=== PATIENT | male | born 1940 | race Caucasian/White ===

== ENCOUNTER 2018-03-18 08:44 | Day surgery (SDC) | payer OTHER ==
--- OUTSIDE RECORDS SUMMARY | 2018-03-18 08:47 | XMS REPORT | Clinical Summary ---
:1940 Author Organization [facility] Address [address] [place] [address] Phone Care Team Providers Name Role Phone Unavailable Primary Care Provider Unavailable Allergies No Known Allergies Current Medications Prescription Sig. Disp. Refills Start Date End Date Status clopidogrel (PLAVIX) Take 75 mg by Active 75 mg tablet mouth daily. pravastatin Take 10 mg by Active (PRAVACHOL) 10 MG mouth daily. tablet PNV w/o calcium-iron Take by mouth. Active fum-FA (M-VIT) 27-1 mg Tab folic acid (FOLVITE) Take 1 mg by Active 1 MG tablet mouth daily. magnesium oxide Take 400 mg by Active (MAG-OX) 400 mg mouth 2 (two) tablet times daily. potassium chloride Take 20 mEq by Active (KLOR-CON) 10 MEQ CR mouth 2 (two) tablet times daily. cyanocobalamin Take 250 mcg Active (VITAMIN B-12) 250 by mouth MCG tablet daily. metoprolol Take 50 mg by Active (LOPRESSOR) 50 MG mouth 2 (two) tablet times daily. memantine (NAMENDA) Take 1 tablet 60 tablet 2 06/23/2017 Active 10 MG tablet (10 mg total) 8 by mouth 2 (two) times daily. dofetilide (TIKOSYN) Take 125 mcg Discontinued 125 MCG capsule by mouth 2 7 (two) times daily. docusate sodium Take 100 mg by Discontinued (COLACE) 100 MG mouth 2 (two) 7 capsule times daily. cefadroxil (DURICEF) Take 1 capsule 6 capsule 0 06/16/2017 Discontinued 500 MG capsule (500 mg total) 7 by mouth 2 (two) times daily for 3 days. benzonatate Take 1 capsule 20 capsule 0 06/23/2017 (TESSALON) 200 MG (200 mg total) 7 capsule by mouth 3 (three) times daily as needed for Cough for up to 7 days. loperamide (IMODIUM) Take 1 capsule 30 capsule 0 06/23/2017 Discontinued 2 mg capsule (2 mg total) 7 by mouth 4 (four) times daily as needed for Diarrhea for up to 10 days. furosemide (LASIX) Take 1 tablet 30 tablet 2 06/23/2017 20 MG tablet (20 mg total) 7 by mouth daily for 30 days. Active Problems Problem Noted Date Hematuria 06/23/2017 BPH (benign prostatic hyperplasia) 06/16/2017 Encounters Date Type Specialty Care Team Description 06/25/2017 Procedure Pass 06/16/2017 - Hospital Encounter General Internal Jacky Linares Benign prostatic 06/23/2017 Medicine IMD Jv hyperplasia with lower urinary tract symptoms, unspecified morphology (Primary Dx);Confusion;Hyponat remia;ULISES (acute kidney injury) (HCC);S/P TURP;Mixed hyperlipidemia;Essent ial hypertension;Chronic atrial fibrillation (HCC);S/P cardiac pacemaker procedure;Hypervolemi a, unspecified hypervolemia type;Hematuria;Ariel ia without behavioral disturbance, unspecified dementia type;Acute metabolic encephalopathy 06/16/2017 Procedure Pass 06/16/2017 Surgery Jacky Linares CYSTOSCOPY,TURP MD Mayra 06/15/2017 Anesthesia Event Tristan Garner MD 06/12/2017 Hospital Encounter Cardiology Jacky Linares MD 06/12/2017 Hospital Encounter Pre-Admission Jacky Linares MD 06/12/2017 Hospital Encounter Pre-Admission Ernie Means MD 06/12/2017 Orders Only General Internal Medicine after 03/17/2017 Social History Tobacco Use Types Packs/Day Years Used Date Former Smoker Comments: quit 1964 Alcohol Use Drinks/Week oz/Week Comments Yes 2 Shots of liquor 1.2 Sex Assigned at Date Recorded Not on file Last Filed Vital Signs Vital Sign Reading Time Taken Blood Pressure 103/69 06/23/2017 12:00 PM CDT Pulse 52 06/23/2017 12:00 PM CDT Temperature 36.2 C (97.1 F) 06/23/2017 12:00 PM CDT Respiratory Rate 18 06/23/2017 12:00 PM CDT Oxygen Saturation 98% 06/23/2017 12:00 PM CDT Inhaled Oxygen Concentration - - Weight 97.6 kg (215 lb 2.7 oz) 06/23/2017 4:57 AM CDT Height 185.4 cm (6' 1") 06/16/2017 7:07 AM CDT Body Mass Index 28.39 06/23/2017 4:57 AM CDT Plan of Treatment Not on file Procedures Procedure Name Priority Date/Time Associated Diagnosis Comments CYSTOSCOPY,RETROGRADES 06/16/2017 10:35 AM BPH with urinary CDT obstruction Special Needs (TECH) CYSTOSCOPY,TURP 06/16/2017 10:35 AM CDT BPH with urinary obstruction Special Needs (TECH) after 03/17/2017 Results RHYTHM STRIP - SCAN (06/24/2017 1:51 PM)Calcium, Ionized (06/23/2017 4:49 AM) Only the most recent of4 resultswithin the time period is included. Component Value Ref Range Calcium, Ion 1.00 (L) 1.12 - 1.27 mmol/L pH, Blood 7.38 Specimen Performing Laboratory Blood [facility] [address] [address] CBC with platelet count + automated diff (06/23/2017 4:49 AM)Only the most recent of5 resultswithin the time period is included. Component Value Ref Range WBC 13.4 (H) 3.5 - 10.5 K/L RBC 4.60 (L) 4.63 - 6.08 M/L Hemoglobin 13.5 (L) 13.7 - 17.5 GM/DL Hematocrit 41.5 40.1 - 51.0 % MCV 90.2 79.0 - 92.2 fL MCH 29.3 25.7 - 32.2 pg MCHC 32.5 32.3 - 36.5 GM/DL RDW 14.6 (H) 11.6 - 14.4 % Platelets 185 150 - 450 K/CU MM MPV 10.4 9.4 - 12.4 fL nRBC 0 0 - 0 /100 WBC % Neutros 67 % % Lymphs 20 % % Monos 11 % % Eos 2 % % Baso 1 % # Neutros 8.95 (H) 1.78 - 5.38 K/L # Lymphs 2.63 1.32 - 3.57 K/L # Monos 1.50 (H) 0.30 - 0.82 K/L # Eos 0.20 0.04 - 0.54 K/L # Baso 0.08 0.01 - 0.08 K/L Immature Granulocytes-Relative 1 0 - 1 % Specimen Performing Laboratory Blood [address] [address] CBC with platelet count + automated diff (06/23/2017 4:49 AM)Only the most recent of5 resultswithin the time period is included. Specimen Performing Laboratory Blood Narrative The following orders were created for panel order CBC with platelet count + automated diff. Procedure Abnormality Status --------- ------ CBC with platelet count ...[[id number]]AbnormalFinal result Please view results for these tests on the individual orders. Phosphorus (06/23/2017 4:49 AM)Only the most recent of8 resultswithin the time period is included. Component Value Ref Range Phosphorus 4.1 2.3 - 4.7 mg/dL Specimen Performing Laboratory Blood [address] [address] B-type Natriuretic Factor (BNP) (06/23/2017 4:49 AM)Only the most recent of3 resultswithin the time period is included. Component Value Ref Range BNP 2170 (H) 0 - 100 pg/mL Specimen Performing Laboratory Blood [address] [address] Magnesium (06/23/2017 4:49 AM)Only the most recent of8 resultswithin the time period is included. Component Value Ref Range Magnesium 1.7 1.6 - 2.6 mg/dL Specimen Performing Laboratory Blood [address] [address] Basic Metabolic Panel (06/23/2017 4:49 AM)Only the most recent of16 resultswithin the time period is included. Component Value Ref Range Sodium 132 (L) 136 - 145 meq/L Potassium 4.3 3.5 - 5.1 meq/L Chloride 102 98 - 107 meq/L CO2 18 (L) 22 - 29 meq/L BUN 38 (H) 7 - 21 mg/dL Creatinine 1.39 (H) 0.57 - 1.25 mg/dL Glucose 101 70 - 105 mg/dL Calcium 8.7 8.4 - 10.2 mg/dL EGFR 50Comment: ESTIMATED GFR IS NOT ACCURATE mL/min/1.73 sq m CREATININE CLEARANCE IN PREDICTING GLOMERULAR FILTRATION RATE. ESTIMATED GFR IS NOT APPLICABLE FOR DIALYSIS PATIENTS. Specimen Performing Laboratory Blood [facility] [address] [address] 2D Echo W/Doppler(CW/PW/Color) (06/22/2017 5:01 PM) Component Value Ref Range Ejection Fraction LV EF BP 30.7 % Specimen Performing Laboratory DIGISONICS Narrative Echocardiography Laboratory [address] [place] [address] Voice:[phone] Transthoracic Echocardiogram Pat.Name:EAMON OROURKE Pat.ID:[id number] .Date: 06/22/2017 Refer.MD:ARTUR LEAL Exam Time: 5:01:00 PMStudy Type:Echo Complete Height:73inWeight:216lb BSA: 2.23 m2 DOBAge:1940,77Y Sex: MALEBP:131/80 HR:71 bpmSonogrphr: Shanta Saleh RDCS Pat. Stat.:Inpatient Room:[facility] Reason for Study:Evaluate Ejection Fraction History / Clinical:Atrial fibrillation/flutter Procedures:2D ECHO W/ DOPPLER (CW/PW/COLOR), 2D, M-mode, Doppler, Color Flow SUMMARY: Global LV systolic function is kzwnhxpw-vz-mmpbdxqj reduced. Wwllpfbo-ix-verfvh concentric LV hypertrophy. The following segment(s) appear akinetic: basal to mid inferoseptal, mid to distal inferior, mid anteroseptal, and apical septal segments. The following segment(s) appear dyskinetic: mid inferolateral. RV chamber size is significantly enlarged. Global RV systolic function is depressed. LA size is moderately enlarged (42-48 ml/m2). Moderate mitral regurgitation. Estimated Peak systolic PA pressure is 40-45 mm Hg. The estimated RA pressure by IVC dynamics >20 mmHg. A trace of aortic regurgitation. A left pleural effusion is noted. No prior exam available for comparison. FINDINGS: Rhythm/BP: Irregular rhythm during the exam. Most beats appear paced. LV: LV septal thickness is severely increased (> 1.6 cm) ; LV posteriorwall thickness is moderately increased (1.5- 1.6 cm).Global LV systolic function is fwxzpwec-bj-nqpzolgq reduced.Left ventricular chamber size (by vol index) is normal(male - LVED vol - 34-74 ml/m2). LVEF by quantitativeassessment is hxcqrxwm-uh-qjbxfwvi reduced (30%).Wddmdelp-ga-iorymt concentric LV hypertrophy. The followingsegment(s) appear akinetic: basal to mid inferoseptal,mid to distal inferior, mid anteroseptal, and apicalseptal segments. The following segment(s) appear dyskinetic:mid inferolateral. Degree (grade) of diastolic dysfunctionis indeterminate. The other segments are hypokinetic. LA: LA size is moderately enlarged (42-48 ml/m2). RV: RV chamber size is significantly enlarged. Global RV systolicfunction is depressed. RV pacing wire is visualized.. RA: RA cavity size is enlarged. AV: A trace of aortic regurgitation. Mild AoV cusp thickening. MV: Mild MV leaflet thickening. Moderate mitral regurgitation. 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 TV: Mild tricuspid regurgitation. TV structure appears normal by availableviews. Estimated Peak systolic PA pressure is 40-45mm Hg. PV: PV is not well visualized; function appears normal by Dopplervisualized. AO: Aortic root size (Sinus of Valsalva diameter) is mildly dilated.Proximal ascending aorta size is indeterminate (notwell seen). Pericard: No significant pericardial effusion is visualized. Systemic Veins: The inferior vena cava size is dilated. The estimated RApressure by IVC dynamics >20 mmHg. PA/PV/Pleural: A left pleural effusion is noted. Comparison: No prior exam available for comparison. Quality:Technically adequate exam. MEASUREMENTS: 2D Left Ventricle LV A% 21.1 %(36-64)* LA Sng Plane LA Vol99.7 mlIndex 44.7 ml/m2 LA Area 29.2 cm2(8.8-23.4)* Aorta Ao Rtd3.61 cm Parasternal Long [place] Ao An 2.29 cm (1.4-2.6) LV%fs 25.7 %(25-46) Ao Rtd3.36 cmLVPWd 1.54 cm IVSd1.74 cm LA Ds 4.68 cm (2.3-3.9)* LVIDd4.7 cm (4.3-5.1) LV Wmn 1.64 cm LVIDs 3.49 cm (2-4) LV EF Biplane LVEDV BP 130 mlIndex 58.1 ml/m2 HR77 bpm LVESV BP89.9 mlLV CO BP 3.06 l/min LV SV BP39.8 mlLV CI BP 1.37 l/min/m2 DOPPLER Stroke Vol & Cardiac Out HR70 bpmSV 31.9 ml ann2.29 cm CO 2.23 l/min VTI7.74 cm CI1 l/min/m2 TV Pressure Gradient TV pkE 242 cm/s RA Velocity TI mariah 231 cm/Thalia Press 21.4 mmHg Signed 06/23/2017 10:13 AM Wen Arnett M.D. Procedure Note Interface, External Ris In - 06/23/2017 10:13 AM CDT Echocardiography Laboratory [address] [place] [address] Voice: [phone] Transthoracic Echocardiogram Pat.Name: EAMON OROURKE Pat.ID: [id number] St.Date: 06/22/2017 Refer.MD: ARTUR LEAL Exam Time: 5:01:00 PM Study Type:Echo Complete Height: 73in Weight: 216lb BSA: 2.23 m2 Age: 6 1940,77Y Sex: MALE BP: 131/80 HR: 71 bpm Sonogrphr: Shanta Saleh RDCS Pat. Stat.:Inpatient Room: [facility] Reason for Study:Evaluate Ejection Fraction History / Clinical:Atrial fibrillation/flutter Procedures:2D ECHO W/ DOPPLER (CW/PW/COLOR), 2D, M-mode, Doppler, Color Flow SUMMARY: Global LV systolic function is bnhryycw-mp-kqlidrwu reduced. Ytecgmfn-hy-hosuup concentric LV hypertrophy. The following segment(s) appear akinetic: basal to mid inferoseptal, mid to distal inferior, mid anteroseptal, and apical septal segments. The following segment(s) appear dyskinetic: mid inferolateral. RV chamber size is significantly enlarged. Global RV systolic function is depressed. LA size is moderately enlarged (42-48 ml/m2). Moderate mitral regurgitation. Estimated Peak systolic PA pressure is 40-45 mm Hg. The estimated RA pressure by IVC dynamics >20 mmHg. A trace of aortic regurgitation. A left pleural effusion is noted. No prior exam available for comparison. FINDINGS: Rhythm/BP: Irregular rhythm during the exam. Most beats appear paced. LV: LV septal thickness is severely increased (> 1.6 cm) ; LV posterior wall thickness is moderately increased (1.5-1.6 cm). Global LV systolic function is gzpbelwj-mo-fipbyqbd reduced. Left ventricular chamber size (by vol index) is normal (male - LVED vol - 34-74 ml/m2). LVEF by quantitative assessment is wgvhjufd-tn-bgwveaqo reduced (30%). Zzsbosce-mg-ilnasm concentric LV hypertrophy. The following segment(s) appear akinetic: basal to mid inferoseptal, mid to distal inferior, mid anteroseptal, and apical septal segments. The following segment(s) appear dyskinetic: mid inferolateral. Degree (grade) of diastolic dysfunction is indeterminate. The other segments are hypokinetic. LA: LA size is moderately enlarged (42-48 ml/m2). RV: RV chamber size is significantly enlarged. Global RV systolic function is depressed. RV pacing wire is visualized.. RA: RA cavity size is enlarged. AV: A trace of aortic regurgitation. Mild AoV cusp thickening. MV: Mild MV leaflet thickening. Moderate mitral regurgitation. The mechanism for MR is leaflet tethering. TV: Mild tricuspid regurgitation. TV structure appears normal by available views. Estimated Peak systolic PA pressure is 40-45 mm Hg. PV: PV is not well visualized; function appears normal by Doppler visualized. AO: Aortic root size (Sinus of Valsalva diameter) is mildly dilated. Proximal ascending aorta size is indeterminate (not well seen). Pericard: No significant pericardial effusion is visualized. Systemic Veins: The inferior vena cava size is dilated. The estimated RA pressure by IVC dynamics >20 mmHg. PA/PV/Pleural: A left pleural effusion is noted. Comparison: No prior exam available for comparison. Quality: Technically adequate exam. MEASUREMENTS: 2D Left Ventricle LV A% 21.1 % (36-64)* LA Sng Plane LA Vol 99.7 ml Index 44.7 ml/m2 LA Area 29.2 cm2 (8.8-23.4)* Aorta Ao Rtd 3.61 cm Parasternal Long [place] Ao An 2.29 cm (1.4-2.6) LV%fs 25.7 % (25-46) Ao Rtd 3.36 cm LVPWd 1.54 cm IVSd 1.74 cm LA Ds 4.68 cm (2.3-3.9)* LVIDd 4.7 cm (4.3-5.1) LV Wmn 1.64 cm LVIDs 3.49 cm (2-4) LV EF Biplane LVEDV BP 130 ml Index 58.1 ml/m2 HR 77 bpm LVESV BP 89.9 ml LV CO BP 3.06 l/min LV SV BP 39.8 ml LV CI BP 1.37 l/min/m2 DOPPLER Stroke Vol & Cardiac Out HR 70 bpm SV 31.9 ml sabi 2.29 cm CO 2.23 l/min VTI 7.74 cm CI 1 l/min/m2 TV Pressure Gradient TV pkE 242 cm/s RA Velocity TI mariah 231 cm/s RA Press 21.4 mmHg Signed 06/23/2017 10:13 AM Wen Arnett M.D. POC-Glucose meter (06/22/2017 2:23 AM)Only the most recent of2 resultswithin the time period is included. Component Value Ref Range POC-Glucose Meter 108Comment: TESTED AT [address] 70 - 110 mg/dL [address] Specimen Performing Laboratory Blood [facility] [address] [address] Comprehensive metabolic panel (06/22/2017 2:16 AM)Only the most recent of2 resultswithin the time period is included. Component Value Ref Range Protein, Total 6.0 6.0 - 8.3 gm/dL Albumin 3.5 3.5 - 5.0 g/dL Alkaline Phosphatase 67 40 - 150 U/L Total Bilirubin 1.0 0.2 - 1.2 mg/dL Sodium 130 (L) 136 - 145 meq/L Potassium 4.4 3.5 - 5.1 meq/L Chloride 101 98 - 107 meq/L CO2 17 (L) 22 - 29 meq/L BUN 37 (H) 7 - 21 mg/dL Creatinine 1.30 (H) 0.57 - 1.25 mg/dL Glucose 102 70 - 105 mg/dL Calcium 8.5 8.4 - 10.2 mg/dL AST 218 (H) 5 - 34 U/L ALT 373 (H) 6 - 55 U/L EGFR 54Comment: ESTIMATED GFR IS NOT ACCURATE mL/min/1.73 sq m CREATININE CLEARANCE IN PREDICTING GLOMERULAR FILTRATION RATE. ESTIMATED GFR IS NOT APPLICABLE FOR DIALYSIS PATIENTS. Specimen Performing Laboratory Blood [facility] [address] [address] XR chest 2 views (06/21/2017 7:53 PM) Specimen Performing Laboratory GE RIS Narrative FINAL REPORT Comparison exam: 06/20/2017 Small left pleural effusion, unchanged. Blunting of the right costophrenic angle. Cardiomegaly. Normal mediastinal contours. Left subclavian approach dual chamber pacemaker. Previous sternotomy. Normal skeleton and soft tissues. Signed: Petr Ponce MD Report Verified Date/Time:06/21/2017 20:34:15 Reading Location: [address] Ortho Consult Reading Room Procedure Note Interface, External Ris In - 06/21/2017 8:36 PM CDT FINAL REPORT Comparison exam: 06/20/2017 Small left pleural effusion, unchanged. Blunting of the right costophrenic angle. Cardiomegaly. Normal mediastinal contours. Left subclavian approach dual chamber pacemaker. Previous sternotomy. Normal skeleton and soft tissues. Signed: Petr Ponce MD Report Verified Date/Time: 06/21/2017 20:34:15 Reading Location: [facility] Ortho Consult Reading Room abdomen limited (06/21/2017 4:06 PM) Specimen Performing Laboratory GE RIS Narrative FINAL REPORT Comparison: None Discussion: Sonographic evaluation of the right upper quadrant of the abdomen was performed. Liver:Measures 13.9 cm in length at the right midclavicular. It demonstrates normal echogenicity without evidence of focal lesions. Main portal vein diameter 10 mm. Biliary tree:Common duct 6 mm. Gallbladder:No shadowing calculus/calculi. No wall thickening. No pericholecystic fluid.Negative sonographic Campbell's sign. Pancreas: Visualized portions demonstrate no abnormalities. Ascites:No fluid Trace right pleural effusion noted as noted. Kidneys: The right kidney measures 11.0cm.It demonstrates normal cortical echogenicity, without evidence of hydronephrosis, mass, or calculi. IVC/Aorta:Segments partially seen demonstrate no obvious abnormalities. IMPRESSION: Normal right upper quadrant abdomen ultrasound. Signed: Edward Maynard MD Report Verified Date/Time:06/21/2017 16:57:39 Reading Location: [address] Body Reading Room Procedure Note Interface, External Ris In - 06/21/2017 4:59 PM CDT FINAL REPORT Comparison: None Discussion: Sonographic evaluation of the right upper quadrant of the abdomen was performed. Liver: Measures 13.9 cm in length at the right midclavicular. It demonstrates normal echogenicity without evidence of focal lesions. Main portal vein diameter 10 mm. Biliary tree: Common duct 6 mm. Gallbladder: No shadowing calculus/calculi. No wall thickening. No pericholecystic fluid.Negative sonographic Campbell's sign. Pancreas: Visualized portions demonstrate no abnormalities. Ascites: No fluid Trace right pleural effusion noted as noted. Kidneys: The right kidney measures 11.0cm. It demonstrates normal cortical echogenicity, without evidence of hydronephrosis, mass, or calculi. IVC/Aorta: Segments partially seen demonstrate no obvious abnormalities. IMPRESSION: Normal right upper quadrant abdomen ultrasound. Signed: Edward Maynard MD Report Verified Date/Time: 06/21/2017 16:57:39 Reading Location: [address] Body Reading Room Hepatitis C antibody (06/21/2017 1:21 PM) Component Value Ref Range Hepatitis C Ab Nonreactive Nonreactive Specimen Performing Laboratory Blood [address] [address] Hepatitis B core antibody, IgM (06/21/2017 1:21 PM) Component Value Ref Range Hep B C IgM Nonreactive Nonreactive Specimen Performing Laboratory Blood [address] [address] Hepatitis B surface antibody (06/21/2017 1:21 PM) Component Value Ref Range Hep B S Ab <8.0 <8.0 mIU/mL Specimen Performing Laboratory Blood [address] [address] Hepatitis B surface antigen (06/21/2017 1:21 PM) Component Value Ref Range hepatitis B Surface Ag Nonreactive Nonreactive Specimen Performing Laboratory Blood [address] [address] Blood gas, venous (06/21/2017 1:21 PM) Component Value Ref Range pH, Bipin 7.40 7.32 - 7.42 pCO2, Bipin 33 (L) 41 - 51 mmHg pO2, Bipin 54 (H) 25 - 40 mmHg O2 Sat, Bipin 90.4 (H) 40.0 - 70.0 % HCO3, Bipin 20 (L) 21 - 29 mmol/L Base Excess, Bipin -4.6 (L) -2.0 - 3.0 mmol/L Patient Temperature 35.6 C FIO2 21.0 % Specimen Performing Laboratory Blood [address] [address] [address] brain without IV contrast (06/20/2017 5:33 PM) Specimen Performing Laboratory [employer] RIS Narrative FINAL REPORT CLINICAL HISTORY: Confusion COMPARISON: None Multiple axial images of the brain were performed without IV contrast. This exam was performed according to our departmental dose-optimization program, which includes automated exposure control, adjustment of the mA and/or kV according to patient size and/or use of the iterative reconstruction technique. Intracranial hemorrhage: None. Brain parenchyma: Diffuse parenchymal volume loss. Scattered subcortical and periventricular non-specific white matter hypodensities suggestive of microangiopathy. Ventricles, sulci and basal cisterns: Normal for age. Extra-axial spaces: Normal. Midline shift: None. Visualized vasculature: Atherosclerotic calcifications. Cranium: No significant findings. Skullbase: No significant findings. Paranasal sinuses: No significant findings. IMPRESSION: No definite acute intracranial abnormality. There is no mass lesion, intracranial hemorrhage or CT evidence of acute stroke. Microvascular and involutional changes. Please note that CT is insensitive in the detection of acute ischemia. Signed: Zane Bhardwaj MD Report Verified Date/Time:06/20/2017 18:10:41 Reading Location: [address] Reading Room Procedure Note Interface, External Ris In - 06/20/2017 6:12 PM CDT FINAL REPORT CLINICAL HISTORY: Confusion COMPARISON: None Multiple axial images of the brain were performed without IV contrast. This exam was performed according to our departmental dose-optimization program, which includes automated exposure control, adjustment of the mA and/or kV according to patient size and/or use of the iterative reconstruction technique. Intracranial hemorrhage: None. Brain parenchyma: Diffuse parenchymal volume loss. Scattered subcortical and periventricular non-specific white matter hypodensities suggestive of microangiopathy. Ventricles, sulci and basal cisterns: Normal for age. Extra-axial spaces: Normal. Midline shift: None. Visualized vasculature: Atherosclerotic calcifications. Cranium: No significant findings. Skullbase: No significant findings. Paranasal sinuses: No significant findings. IMPRESSION: No definite acute intracranial abnormality. There is no mass lesion, intracranial hemorrhage or CT evidence of acute stroke. Microvascular and involutional changes. Please note that CT is insensitive in the detection of acute ischemia. Signed: Zane Bhardwaj MD Report Verified Date/Time: 06/20/2017 18:10:41 Reading Location: [address] Reading Room Ammonia (06/20/2017 2:33 PM) Component Value Ref Range Ammonia 44 18 - 72 mol/L Specimen Performing Laboratory Blood [address] [address] Hepatic function panel (06/20/2017 2:33 PM) Component Value Ref Range Protein, Total 5.8 (L) 6.0 - 8.3 gm/dL Albumin 3.4 (L) 3.5 - 5.0 g/dL Total Bilirubin 0.7 0.2 - 1.2 mg/dL Bilirubin, Direct 0.4 0.1 - 0.5 mg/dL Alkaline Phosphatase 71 40 - 150 U/L AST 253 (H) 5 - 34 U/L ALT 382 (H) 6 - 55 U/L Specimen Performing Laboratory Blood [address] [address] XR chest 1 view portable / bedside (06/20/2017 9:12 AM)Only the most recent of2 resultswithin the time period is included. Specimen Performing Laboratory GE RIS Narrative FINAL REPORT HISTORY : pulm edema. Comparison: 06/18/2017 Comment: Single portable view of the chest was obtained. The cardiac silhouette size is enlarged. There are findings of pulmonary venous congestion. A left-sided multilead ICD is in place. The patient does have a small left-sided pleural effusion with some adjacent consolidation that could represent atelectasis. Pneumonitis or aspiration cannot be excluded. There is also some patchy right basilar airspace disease. No pneumothorax is seen. Signed: Jaciel Hedrick MD Report Verified Date/Time:06/20/2017 09:18:33 Reading Location: [address] Transitional Reading Room Procedure Note Interface, External Ris In - 06/20/2017 9:45 AM CDT FINAL REPORT HISTORY : pulm edema. Comparison: 06/18/2017 Comment: Single portable view of the chest was obtained. The cardiac silhouette size is enlarged. There are findings of pulmonary venous congestion. A left-sided multilead ICD is in place. The patient does have a small left-sided pleural effusion with some adjacent consolidation that could represent atelectasis. Pneumonitis or aspiration cannot be excluded. There is also some patchy right basilar airspace disease. No pneumothorax is seen. Signed: Jaciel Hedrick MD Report Verified Date/Time: 06/20/2017 09:18:33 Reading Location: [address] Transitional Reading Room Uric acid (06/19/2017 7:34 AM) Component Value Ref Range Uric Acid 8.9 (H) 2.6 - 7.2 mg/dL Specimen Performing Laboratory Blood - Arm, [address] [address] Creatine Kinase (CK) (06/19/2017 7:34 AM) Component Value Ref Range Total CK 739 (H) 29 - 200 U/L Specimen Performing Laboratory Blood - Arm, [address] [address] TSH/Free T4 If Indicated (06/19/2017 4:55 AM) Component Value Ref Range TSH 1.66 0.35 - 4.94 uIU/mL Specimen Performing Laboratory Blood [address] [address] Cortisol (06/18/2017 6:50 PM) Component Value Ref Range Cortisol, Total 17.4 3.7 - 19.4 ug/dL Specimen Performing Laboratory Blood - Arm, [address] [address] Electrolytes (06/18/2017 6:50 PM)Only the most recent of2 resultswithin the time period is included. Component Value Ref Range Sodium 128 (L) 136 - 145 meq/L Potassium 4.9 3.5 - 5.1 meq/L Chloride 100 98 - 107 meq/L CO2 18 (L) 22 - 29 meq/L Specimen Performing Laboratory Blood - Arm, [address] [address] Narrative Call [phone] Sodium, random urine (06/18/2017 10:40 AM)Only the most recent of2 resultswithin the time period is included. Component Value Ref Range Sodium Urine 27 meq/L Specimen Performing Laboratory Urine - Urine, [address] [address] Narrative Reference Range: No Normals Protein, random urine (06/18/2017 10:40 AM) Component Value Ref Range Protein, Urine 231 (H) 0 - 14 mg/dL Specimen Performing Laboratory Urine - Urine, [address] [address] Osmolality, urine (06/18/2017 10:40 AM)Only the most recent of2 resultswithin the time period is included. Component Value Ref Range Osmolality, Ur 677 40 - 1400 mOsm/kg Specimen Performing Laboratory Urine - Urine, [address] [address] Creatinine, random urine (06/18/2017 10:40 AM)Only the most recent of2 resultswithin the time period is included. Component Value Ref Range Creatinine, Ur 139.8 mg/dL Specimen Performing Laboratory Urine - Urine, [address] [address] Narrative Reference Range: No Normals Urinalysis w/Microscopic (06/18/2017 10:40 AM) Component Value Ref Range Color, UA Yellow Clarity, UA Hazy Specific [place], UA 1.018 1.001 - 1.035 pH, UA 5.5 5.0 - 8.0 Protein, UA 200 mg/dL (A) Negative Glucose, UA Negative Negative Ketones, UA Negative Negative Bilirubin, UA Negative Negative Blood, UA Large (A) Negative Nitrite, UA Negative Negative Leukocytes, UA Moderate (A) Negative Urobilinogen, UA 0.2 0.2 - 1.0 mg/dL RBC, UA 441 /HPF WBC, UA 66 /HPF Mucus Rare Squam Epithel, UA <1 /HPF Hyaline Casts, UA 15 /LPF Specimen Source Urine, Murphy Specimen Performing Laboratory Urine - Urine, [place] [address] US renal complete (06/18/2017 3:38 AM) Specimen Performing Laboratory GE RIS Narrative FINAL REPORT Comparison examination: None Right kidney : 11.5 x 5.2 x 4.7 cm No hydronephrosis. No renal stones. Normal renal parenchymal echogenicity. Renal parenchymal thickness: 12 mm No renal masses. No renal cysts. Left kidney : 9.1 x 4.6 x 4.5 cm No hydronephrosis. No renal stones. Normal renal parenchymal echogenicity. Renal parenchymal thickness: 9 mm No renal masses. No renal cysts. Empty bladder containing a Murphy catheter. Impression: 1. No acute abnormality. 2. Somewhat small left kidney when compared to the right. Signed: Petr Ponce MD Report Verified Date/Time:06/18/2017 05:07:14 Reading Location: [address] Reading Room Procedure Note Interface, External Ris In - 06/18/2017 5:09 AM CDT FINAL REPORT Comparison examination: None Right kidney : 11.5 x 5.2 x 4.7 cm No hydronephrosis. No renal stones. Normal renal parenchymal echogenicity. Renal parenchymal thickness: 12 mm No renal masses. No renal cysts. Left kidney : 9.1 x 4.6 x 4.5 cm No hydronephrosis. No renal stones. Normal renal parenchymal echogenicity. Renal parenchymal thickness: 9 mm No renal masses. No renal cysts. Empty bladder containing a Murphy catheter. Impression: 1. No acute abnormality. 2. Somewhat small left kidney when compared to the right. Signed: Petr Ponce MD Report Verified Date/Time: 06/18/2017 05:07:14 Reading Location: [address] Transitional Reading Room Urinalysis w/Microscopic + Reflex to Culture (06/18/2017 1:48 AM) Component Value Ref Range Color, UA Yellow Clarity, UA Hazy Specific [place], UA 1.017 1.001 - 1.035 pH, UA 6.0 5.0 - 8.0 Protein, UA 300 mg/dL (A) Negative Glucose, UA Negative Negative Ketones, UA Negative Negative Bilirubin, UA Negative Negative Blood, UA Large (A) Negative Nitrite, UA Negative Negative Leukocytes, UA Moderate (A) Negative Urobilinogen, UA 0.2 0.2 - 1.0 mg/dL RBC, UA >182 /HPF WBC, UA 44 /HPF Amorphous Crystals Occasional Yeast Occasional Specimen Source Specimen Performing Laboratory Urine - Urine, [address] [address] Urine culture (06/18/2017 1:48 AM) Component Value Ref Range Result No growth Specimen Performing Laboratory Urine - Urine, [address] [address] ECG 12 lead (06/18/2017 12:44 AM)Only the most recent of3 resultswithin the time period is included. Specimen Performing Laboratory GE MUSE Narrative Ventricular Rate 70 BPM Atrial Rate 73 BPM QRS Duration 184 ms Q-T Interval 494 ms QTC Calculation(Bazett) 533 ms R [place] 267 degrees T [place] 77 degrees Atrial fibrillation Electronic ventricular pacemaker When compared with ECG of 17-JUN-2017 16:53, No significant change was found Confirmed by Marcela PALMER, JOHN ([id number]) on 06/18/2017 7:20:21 AM Procedure Note Interface, External Ris In - 06/18/2017 7:20 AM CDT Ventricular Rate 70 BPM Atrial Rate 73 BPM QRS Duration 184 ms Q-T Interval 494 ms QTC Calculation(Bazett) 533 ms R [place] 267 degrees T [place] 77 degrees Atrial fibrillation Electronic ventricular pacemaker When compared with ECG of 17-JUN-2017 16:53, No significant change was found Confirmed by Marcela PALMER MICHAEL ([id number]) on 06/18/2017 7:20:21 AM Hemoglobin and hematocrit (06/18/2017 12:08 AM)Only the most recent of3 resultswithin the time period is included. Component Value Ref Range Hemoglobin 13.7 13.7 - 17.5 GM/DL Hematocrit 42.2 40.1 - 51.0 % Specimen Performing Laboratory Blood [address] [address] Troponin I (06/18/2017 12:08 AM)Only the most recent of2 resultswithin the time period is included. Component Value Ref Range Troponin I 0.09 (H) 0.00 - 0.03 ng/mL Specimen Performing Laboratory Blood [address] [address] Narrative Effective 10/10/2014: Reference Range Change New: 0.00-0.03 Previous 0.00-0.15 Troponin I (TnI) levels must be interpreted in the context of the presenting symptoms and the clinical findings. Elevated TnI levels indicate myocardial damage, but are not specific for ischemic heart disease. Elevated TnI levels are seen in patients with other cardiac conditions (including myocarditis and congestive heart failure), and slight TnI elevations occur in patients with other conditions, including sepsis, renal failure, acidosis, acute neurological disease, and persistent tachyarrhythmia. CBC (Hemogram only) (06/17/2017 5:49 PM) Component Value Ref Range WBC 13.3 (H) 3.5 - 10.5 K/L RBC 4.28 (L) 4.63 - 6.08 M/L Hemoglobin 12.7 (L) 13.7 - 17.5 GM/DL Hematocrit 39.7 (L) 40.1 - 51.0 % MCV 92.8 (H) 79.0 - 92.2 fL MCH 29.7 25.7 - 32.2 pg MCHC 32.0 (L) 32.3 - 36.5 GM/DL RDW 14.3 11.6 - 14.4 % Platelets 185 150 - 450 K/CU MM MPV 10.7 9.4 - 12.4 fL nRBC 0 0 - 0 /100 WBC Specimen Performing Laboratory Blood - Arm, Left [facility] [address] [address] [place] radiologist diagnostic in or 30 minute increments (06/16/2017 12:33 PM) Specimen Performing Laboratory GE RIS Narrative FINAL REPORT Retrograde Pyelography Clinical History: BPH, Gross Hematuria Impression: Intraoperative images are obtained. The radiologist is not present during the procedure. Images are presented for interpretation at the completion of the procedure.Please refer to the procedure report for more details. Number of images obtained:3 Fluoroscopy time: 33 seconds Signed: Sabi Merida MD Report Verified Date/Time:06/16/2017 16:53:48 Reading Location: [address] Radiology Reading Room Procedure Note Interface, External Ris In - 06/16/2017 4:56 PM CDT FINAL REPORT Retrograde Pyelography Clinical History: BPH, Gross Hematuria Impression: Intraoperative images are obtained. The radiologist is not present during the procedure. Images are presented for interpretation at the completion of the procedure. Please refer to the procedure report for more details. Number of images obtained: 3 Fluoroscopy time: 33 seconds Signed: Sabi Merida MD Report Verified Date/Time: 06/16/2017 16:53:48 Reading Location: [address] Radiology Reading Room Tissue Exam (06/16/2017 12:13 PM) Component Value Ref Range Case Report Surgical Pathology Report Case: [id number] Authorizing Provider:Jacky Linares MDCollected: 06/16/2017 1213 Ordering Location: [facility] PERIOPERATIVE Received: 06/16/2017 1416 SERVICES Pathologist: Cristo Matta MD Specimen:Prostate, TURP, Prostate chips DIAGNOSIS PROSTATE, TRANS-URETHRAL RESECTION: - NODULAR HYPERPLASIA CPT Code(s) 07918 CLINICAL HISTORY BPH with urinary obstruction, hematuria SPECIMEN SOURCE Prostate chips GROSS DESCRIPTION The specimen is received in a formalin-filled container labeled with the patient's information and labeled "prostate chips" and consists of 3 gm of multiple hahn-pink hahn-pink prostate chips measuring 3 x 2 x 1 cm in aggregate. The specimen is entirely submitted in A1-A3. CG/ew MICROSCOPIC DESCRIPTION Performed. Specimen Performing Laboratory Tissue - Prostate, TURP [address] [address] Type and screen, automated (06/12/2017 11:28 AM) Component Value Ref Range ABO/RH AUTOMATED (BEAKER) A POSITIVE Ab Scrn NEGATIVE Specimen Performing Laboratory Blood [address] [address] BUN and Creatinine (06/12/2017 11:28 AM) Component Value Ref Range BUN 20 7 - 21 mg/dL Creatinine 1.10 0.57 - 1.25 mg/dL EGFR 65Comment: ESTIMATED GFR IS NOT ACCURATE mL/min/1.73 sq m CREATININE CLEARANCE IN PREDICTING GLOMERULAR FILTRATION RATE. ESTIMATED GFR IS NOT APPLICABLE FOR DIALYSIS PATIENTS. Specimen Performing Laboratory Blood [address] [address] Glucose (06/12/2017 11:28 AM) Component Value Ref Range Glucose 87 70 - 105 mg/dL Specimen Performing Laboratory Blood [address] [address] Narrative Effective 10/10/2014: Reference Range Change-Adult only New: 70-105 Previous: 70-110 after 03/17/2017
--- OUTSIDE RECORDS SUMMARY | 2018-03-18 08:47 | XMS REPORT | Clinical Summary ---
:1940 Author Organization [facility] Address [address] [place] [address] Care Team Providers Name Role Phone Asked, No Pcp Primary Care Provider Unavailable Allergies No Known Allergies Current Medications Prescription Sig. Disp. Refills Start Date End Date Status rivaroxaban Take 20 mg by Active (XARELTO) 20 mg mouth. tablet therapeutic Take 1 tablet Discontinued multivitamin by mouth 8 (THERAGRAN) tablet daily. pravastatin Take 80 mg by Discontinued (PRAVACHOL) 10 MG mouth daily. 8 tablet folic acid (FOLVITE) Take 1 mg by Discontinued 1 MG tablet mouth daily. 8 clopidogrel (PLAVIX) Take 75 mg by Discontinued 75 mg tablet mouth daily. 8 cyanocobalamin 250 Take 250 mcg Discontinued MCG tablet by mouth 8 daily. turmeric, bulk, 95 % 1 capsule Discontinued powder daily. 8 docusate sodium Take 100 mg Discontinued (COLACE) 100 MG by mouth 8 capsule daily. dofetilide (TIKOSYN) Take 1 14 capsule 0 06/08/2017 Discontinued 125 MCG capsule capsule (125 7 mcg total) by mouth every 12 (twelve) hours for 7 days. magnesium oxide Take 1 tablet 60 tablet 4 06/08/2017 Discontinued (MAG-OX) 400 mg (400 mg 8 tablet total) by mouth 2 (two) times a day. potassium chloride Take 2 120 capsule 3 06/08/2017 Discontinued (MICRO-K) 10 MEQ CR capsules (20 8 capsule mEq total) by mouth 2 (two) times a day. dofetilide (TIKOSYN) Take 1 60 capsule 3 06/08/2017 Discontinued 125 MCG capsule capsule (125 8 mcg total) by mouth every 12 (twelve) hours. 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 Hematuria 06/02/2017 Encounters Date Type Specialty Care Team Description 03/10/2018 Documentation Orthopedic Surgery Pramod Zamorano MD 03/08/2018 Office Visit Orthopedic Surgery Jaun, [facility] localized osteoarthrosis of shoulder region, unspecified laterality (Primary Dx); Pramod Sanchez MD Acute pain of both shoulders; History of total right hip replacement 06/05/2017 Anesthesia Event Cardiology Suzanne Montgomery CRNA 06/05/2017 Procedure Pass Procedural Cardiology 06/05/2017 Surgery Procedural Fernando, Nadim Ep cardioversion w erica Alexis Mary MD [[id number] (CPT)] 06/03/2017 Procedure Pass Procedural Cardiology 06/03/2017 Surgery Procedural Fernando, Nadim Ep ppi generator Alexis Mary MD insertion dual [39688 (CPT)] 06/02/2017 - Hospital Encounter Cardiology Justyn Disla Atrial fibrillation, 06/08/2017 MD Val unspecified type after 03/17/2017 Social History Tobacco Use Types Packs/Day Years Used Date Never Assessed Sex Assigned at Date Recorded Not on file Last Filed Vital Signs Vital Sign Reading Time Taken Blood Pressure 118/87 06/08/2017 7:34 AM CDT Pulse 79 06/08/2017 7:34 AM CDT Temperature 35.9 C (96.7 F) 06/08/2017 7:34 AM CDT Respiratory Rate 18 06/08/2017 7:34 AM CDT Oxygen Saturation 94% 06/08/2017 7:34 AM CDT Inhaled Oxygen Concentration - - Weight 84.8 kg (187 lb) 03/08/2018 2:35 PM CDT Height 182.9 cm (6') 03/08/2018 2:35 PM CDT Body Mass Index 25.36 03/08/2018 2:35 PM CDT Plan of Treatment Health Maintenance Due Date Last Done Comments SHINGRIX VACCINE (#1) 1992 ZOSTER VACCINE 2002 PNEUMOCOCCAL POLYSACCHARIDE VACCINE AGE 65 AND OVER 2007 PNEUMOCOCCAL-13 2007 INFLUENZA VACCINE 06/23/2018 Implants Implanted Type Area Vat Washer Device Expiration Model / Identifier Date Serial / Lot Accolade Mri Dr Pacemaker - [id number] - [id number] Cardiac N/A: [employer]ON 02/16 [id number] / Implanted: Qty: 1 on 06/03/2017 by Yang Saez Jr., MD Pacemaker N/A SCIENTIFIC- CRM [id number] / Generators [id number] IngRestlet Pacing Lead Is-1 Bipolar 59cm - [id number] - [id number] Cardiac Pacing N/A: [employer]ON 04/02/2019 [id number] / Implanted: Qty: 1 on 06/03/2017 by Yang Saez Jr., MD Leads or N/A [employer]ENTIFIC[employer]eset [id number] / Electrodes or [id number] Accessories 52cm ITDatabase Active Fixation Pacing Lead - [id number] Cardiac Pacing N/A : [employer]ON 05/09/2019 7741 / Implanted: 06/03/2017 (Quantity not on file) Leads or N/A [employer] [id number] / Electrodes or [id number] Accessories Right Total Hip Prosthesis Procedures Procedure Name Priority Date/Time Associated Comments Diagnosis ECHOCARDIOGRAM Routine 06/05/2017 12:41 Results for this TRANSESOPHAGEAL W PM CDT procedure are in DOPPLER COLORFLOW the results section. EP CARDIOVERSION W ERICA Routine 06/05/2017 12:26 Results for this PM CDT procedure are in the results section. EP PPI GENERATOR INSERT Routine 06/03/2017 2:38 Atrial Results for this DUAL PM CDT fibrillation, procedure are in unspecified type the results section. after 03/17/2017 Results XR Femur 2 Vw Right (03/08/2018 3:16 PM) Specimen Performing Laboratory [address] [place] [address] Narrative Well fixed and aligned THR RightRevision with allograft XR Shoulders Bilateral (03/08/2018 2:33 PM) [facility] [address] [place] [address] Narrative Mold OA changes both shoulders Estimated GFR (06/08/2017 4:00 AM)Only the most recent of7 resultswithin the time period is included. Component Value Ref Range GFR Non Af Amer 65 mL/min/1.73 m2 GFR Af Amer 79 mL/min/1.73 m2 Comment: Chronic kidney disease: <60 mL/min/1.73m2 Kidney failure: <15 mL/min/1.73m2 The estimated GFR is calculated from the IDMS-traceable Modification of Diet in Renal Disease Equation. The accuracy of the calculation is poor when the creatinine is normal. Calculated values >90 mL/min/1.73m2 are not reported. This equation has not been validated in children (<18 years), women, the elderly (>70 years), or ethnic groups other than Caucasians and Americans. Specimen Performing Laboratory Plasma specimen [facility] DEPARTMENT OF PATHOLOGY AND GENOMIC MEDICINE [address] [place] [address] Basic metabolic panel (06/08/2017 4:00 AM)Only the most recent of6 resultswithin the time period is included. Component Value Ref Range Sodium 138 135 - 148 mEq/L Potassium 4.1 3.5 - 5.0 mEq/L Chloride 101 98 - 112 mEq/L CO2 22 (L) 24 - 31 mEq/L Anion gap 15 7 - 15 mEq/L Comment: Starting from February , anion gap calculation no longer incorporates potassium. Please note the change. BUN 23 8 - 23 mg/dL Creatinine 1.1 0.7 - 1.2 mg/dL Glucose 94 65 - 99 mg/dL Calcium 8.9 8.8 - 10.2 mg/dL Specimen Performing Laboratory Plasma specimen [facility] DEPARTMENT OF PATHOLOGY AND GENOMIC MEDICINE [address] [place] [address] 89190 ECG 12 lead (06/07/2017 10:27 PM)Only the most recent of10 resultswithin the time period is included. Component Value Ref Range Ventricular rate 73 Atrial rate 73 QRSD interval 108 QT interval 454 QTC interval 500 P axis 1 58 QRS axis 1 -51 T wave axis 98 EKG impression Sinus rhythm with 1st degree AV block-Left anterior fascicular block-Nonspecific T wave abnormality-Prolonged QT-Abnormal ECG-- Specimen Performing Laboratory [facility] [address] [place] [address] Magnesium level (06/07/2017 4:00 AM)Only the most recent of6 resultswithin the time period is included. Component Value Ref Range Magnesium 2.0 1.6 - 2.4 mg/dL Specimen Performing Laboratory Plasma specimen [facility] DEPARTMENT OF PATHOLOGY AND [facility] MEDICINE [address] [place] [address] 9[address]60 ECG Pre/Post Op-Tomorrow (06/06/2017 8:17 AM) Component Value Ref Range Ventricular rate 72 Atrial rate 72 MT interval 254 QRSD interval 94 QT interval 504 QTC interval 551 P axis 1 75 QRS axis 1 -57 T wave axis -7 EKG impression Sinus rhythm with 1st degree AV block-Left axis deviation- Nonspecific T wave abnormality-Prolonged QT-Abnormal ECG-In automated comparison with ECG of 04-JUN-2017 22:30,-Sinus rhythm has replaced Atrial fibrillation-Questionable change in QRS axis-QT has lengthened- : 33 PM Specimen Performing Laboratory [facility] [address] [place] [address] Partial thromboplastin time, activated (06/06/2017 1:52 AM)Only the most recent of4 resultswithin the time period is included. Component Value Ref Range PTT SEE COMMENT 23.0 - 36.0 sec Comment: PTT therapeutic range for unfractionated heparin is 61.0-112.0 seconds which corresponds to Anti-Xa 0.3-0.7 U/ml. Footnote--------- Unable to perform testing, specimen is MISLABLED.Recollect requested for PTT.NORMA DELEON/Chelsey notified by [employer] at06/06/201702:37 .Credit issued. Corrected result; previously reported as 34.6 on 06/06/2017 at 02:19 by I/ AUT Specimen Performing Laboratory Blood [facility] DEPARTMENT OF PATHOLOGY AND GENOMIC MEDICINE [address] [place] [address] Echocardiogram transesophageal (06/05/2017 12:41 PM) Specimen [facility] [address] [place] [address] Narrative Transesophageal Echo Report [address], [address] [address] Wall motion diagram can be located in the PACS image link Pat.Name:Lambert BURTON.ID:[id number] .Date: 06/05/2017 Refer.MD:YANG SAEZ MD Exam Time: 11:48:00 AM Study Type:ERICA Height:73inWeight: 199.14lb BSA: 2.15 m2 DOBAge:1940,77Y Sex: MALEBP:134/64 HR:78 bpmSonogrphr: Everett Carty MD [facility]. Stat.:Inpatient Room: Study Status:Final Echo Event ID:[id number] Order ID:[id number] Reason for Study:Atrial fibrillation Procedures:Transesophageal Echo with Colorflow Doppler Race:C SUMMARY: No thrombus or mass is visualized in the LA or LA appendage. Normal global and regional left ventricular systolic function with ejection fraction estimated at 55-59%. Mild mitral regurgitation. FINDINGS: ERICA:The attending sales representative sales manager performed the ERICA procedure and waspresent for the entire duration. The patient was counseledand an informed consent was obtained. Topical and intravenousanesthesia was administered. The esophagus was intubatedwithout difficulty. The probe was passed to the gastricfundus and all standard echocardiographic views wereobtained. The patient tolerated the procedure well. LV: LV size is normal. LV function is normal. Overall wall motionis normal. Estimated EF is 55-59%. RV: RV size is normal. A pacemaker wire is seen in the RV. RV functionis normal. LA: No thrombus or mass is visualized in the LA or LA appendage. Spontaneousecho contrast is seen in the LA/LA appendage. Leftatrial chamber size: dilated. RA: A pacemaker wire is seen. Right atrial chamber size: dilated. AO: Mild atherosclerotic changes seen in the descending aorta. GIRISH: No pericardial effusion. PLE:Pleural effusion is present. AV: Mild thickening of AV leaflets. A trace of aortic regurgitation. MV: Mild mitral annular calcification. Mild mitral regurgitation. PV: No structural PV abnormalities noted. TV: No structural TV abnormalities noted. A trace of tricuspid regurgitation ERICA: Anesthesia: Per Anesthesia ASA Class: 3 Physician: Coryk Wasserman M.D. Assistant Pressman: Everett Carty MD Pre TEEBP HR Post ERICA BP HR 134/64 39666/67 77 Meds:Viscous xylocaine, Cetacaine spray to oropharynx, Per Anesthesia Complications: None Condition: Stable Signed 06/05/2017 01:25 PM Corky Wasserman M.D. Procedure Note Interface, Radiology Results In - 06/05/2017 1:25 PM CDT Transesophageal Echo Report [address], [place], [place] [address] Wall motion diagram can be located in the PACS image link Pat.Name: EAMON BURTON Nova.ID: [id number] .Date: 06/05/2017 Refer.MD: YANG SAEZ MD Exam Time: 11:48:00 AM Study Type:ERICA Height: 73in Weight: 199.14lb BSA: 2.15 m2 Age: 6 1940,77Y Sex: MALE BP: 134/64 HR: 78 bpm Sonogrphr: Everett Carty MD Pat. Stat.:Inpatient Room: [facility] Study Status:Final Echo Event ID:[id number] Order ID: [id number] Reason for Study:Atrial fibrillation Procedures:Transesophageal Echo with Colorflow Doppler Race: C SUMMARY: No thrombus or mass is visualized in the LA or LA appendage. Normal global and regional left ventricular systolic function with ejection fraction estimated at 55-59%. Mild mitral regurgitation. FINDINGS: ERICA: The attending sales representative sales manager performed the ERICA procedure and was present for the entire duration. The patient was counseled and an informed consent was obtained. Topical and intravenous anesthesia was administered. The esophagus was intubated without difficulty. The probe was passed to the gastric fundus and all standard echocardiographic views were obtained. The patient tolerated the procedure well. LV: LV size is normal. LV function is normal. Overall wall motion is normal. Estimated EF is 55-59%. RV: RV size is normal. A pacemaker wire is seen in the RV. RV function is normal. LA: No thrombus or mass is visualized in the LA or LA appendage. Spontaneous echo contrast is seen in the LA/LA appendage. Left atrial chamber size: dilated. RA: A pacemaker wire is seen. Right atrial chamber size: dilated. AO: Mild atherosclerotic changes seen in the descending aorta. GIRISH: No pericardial effusion. PLE: Pleural effusion is present. AV: Mild thickening of AV leaflets. A trace of aortic regurgitation. MV: Mild mitral annular calcification. Mild mitral regurgitation. PV: No structural PV abnormalities noted. TV: No structural TV abnormalities noted. A trace of tricuspid regurgitation ERICA: Anesthesia: Per Anesthesia ASA Class: 3 Physician: Corky Wasserman M.D. Assistant Pressman: Everett Carty MD Pre ERICA BP HR Post ERICA BP HR 134/64 78 131/67 77 Meds: Viscous xylocaine, Cetacaine spray to oropharynx, Per Anesthesia Complications: None Condition: Stable Signed 06/05/2017 01:25 PM Corky Wasserman M.D. Cv electrophysiology procedure (06/05/2017 12:26 PM) Specimen Performing Laboratory [facility] [address] [place] [address] Narrative Cardioversion Procedure Note Eamon Burton,[id number] 77 y.o. male 06/02/2017 - 06/05/2017; [facility] CARD MAUDE 8 PROCEDURE ROOM 15 Procedure(s): Ep cardioversion w erica Tolerated procedure well Condition: stable Complications:None; patient tolerated the procedure well. Findings: Baseline rhythm is Afib MAC for ERICA and CVN provided Sync DC CVN with 200 j converted him to ApVp then NSR He awoke without sequelae. Pre-op Diagnosis: Other * No Diagnosis Codes entered * Surgeon(s) and Role: * Corky Wasserman MD - Co-Surgeon * Yang Saez Jr., MD - Primary Anesthesia: Monitor Anesthesia Care Blood Products Administered:none Estimated Blood Loss: 0 mL Sheath/IV: Specimens: * No specimens in log * Grafts/Implants: None CONCLUSIONS:Successful CVN to NSR on Dofetilide.QTc is prolonged on dofetilde RECOMMENDATIONS:Reduce dose to 250 mcg and monitor EKGs Yang Saez Jr., MD Date: 06/05/2017Time: 12:32 PM Type and screen (06/05/2017 4:59 AM) Component Value Ref Range ABO grouping A Rh type POS Antibody screen (gel) NEG Specimen Performing Laboratory Blood [facility] DEPARTMENT OF PATHOLOGY AND GENOMIC MEDICINE [address] [place] [address] Prothrombin time with INR (06/04/2017 7:05 AM)Only the most recent of3 resultswithin the time period is included. Component Value Ref Range Prothrombin time 15.9 (H) 12.0 - 15.0 sec INR 1.3 Comment: The International Normalized Ratio (INR) is a therapeutic monitoring tool for patients who are stable on oral anticoagulant therapy. An INR of 2.0-3.0 is suggested for deep vein thrombosis/pulmonary embolism. Specimen Performing Laboratory Blood [facility] DEPARTMENT OF PATHOLOGY AND [facility] MEDICINE [address] [place] [address] CBC with platelet and differential (06/04/2017 7:05 AM)Only the most recent of3 resultswithin the time period is included. Component Value Ref Range WBC 9.21 4.50 - 11.00 k/uL RBC 4.55 4.40 - 6.00 m/uL HGB 13.3 (L) 14.0 - 18.0 g/dL HCT 40.8 (L) 41.0 - 51.0 % MCV 89.7 82.0 - 100.0 fL MCH 29.2 27.0 - 34.0 pg MCHC 32.6 31.0 - 37.0 g/dL RDW - SD 47.5 37.0 - 55.0 fL MPV 10.8 8.8 - 13.2 fL Platelet count 176 150 - 400 k/uL Nucleated RBC 0.00 /100 WBC Neutrophils 70.2 (H) 39.0 - 69.0 % Lymphocytes 19.7 (L) 25.0 - 45.0 % Monocytes 8.1 0.0 - 10.0 % Eosinophils 0.9 0.0 - 5.0 % Basophils 0.8 0.0 - 1.0 % Immature granulocytes 0.3Comment: "Immature granulocytes" 0.0 - 1.0 % (promyelocytes, myelocytes, metamyelocytes) Specimen Performing Laboratory Blood [facility] DEPARTMENT OF PATHOLOGY AND GENOMIC MEDICINE [address] [place] [address] Phosphorus level (06/04/2017 4:00 AM)Only the most recent of2 resultswithin the time period is included. Component Value Ref Range Phosphorus 3.6 2.4 - 4.5 mg/dL Specimen Performing Laboratory Plasma specimen [facility] DEPARTMENT OF PATHOLOGY AND GENOMIC MEDICINE [address] [place] [address]272 Hepatic function panel (06/04/2017 4:00 AM) Component Value Ref Range Albumin 3.5 3.5 - 5.0 g/dL Total bilirubin 0.9 0.0 - 1.2 mg/dL Bilirubin direct <0.2 0.0 - 0.3 mg/dL Alkaline phosphatase 61 40 - 129 U/L Protein 6.7 6.3 - 8.3 g/dL Comment: 4.6-7.0 g/dL 1 week 4.4-7.6 g/dL 7 months-1year5.1-7.3 g/dL 1-2 years5.6-7.5 g/dL >3 years6.0-8.0 g/dL 18-150 6.3-8.3 g/dL ALT 23 5 - 50 U/L AST 27 10 - 50 U/L Specimen Performing Laboratory Plasma specimen [facility] DEPARTMENT OF PATHOLOGY AND GENOMIC MEDICINE [address] [place] [address] XR Chest 1 Vw Portable (06/03/2017 3:55 PM) Specimen Performing Laboratory [facility] [address] [place] [address] Narrative EXAMINATION:XR CHEST 1 VW PORTABLE CLINICAL HISTORY:Pneumothorax COMPARISON:October 05, 2002 IMPRESSION: Change midline sternotomy noted.There is a transvenous pacemaker in the left axillary fold. There is moderate cardiomegaly.Pulmonary vessels are congested and there is patchy bilateral infiltrate compatible with early pulmonary edema. [id number] Procedure Note Interface, Radiology Results Incoming - 06/03/2017 4:01 PM CDT EXAMINATION: XR CHEST 1 VW PORTABLE CLINICAL HISTORY: Pneumothorax COMPARISON: October 05, 2002 IMPRESSION: Change midline sternotomy noted. There is a transvenous pacemaker in the left axillary fold. There is moderate cardiomegaly. Pulmonary vessels are congested and there is patchy bilateral infiltrate compatible with early pulmonary edema. [id number] Cv electrophysiology procedure (06/03/2017 2:38 PM) Specimen Performing Laboratory [facility] [address] [place] [address] Narrative Pacemaker Implant Operative Note Eamon Burton,[id number] 77 y.o. male 06/02/2017 - 06/03/2017; [facility] CATHLAB8 Procedure(s): Ep ppi generator insertion dual Tolerated procedure well Condition: stable Complications:None; patient tolerated the procedure well. Findings: The dual chamber PPM was placed in standard fashion without complications. Pre-op Diagnosis: Atrial fibrillation, unspecified type [I48.91] Post-Op Diagnosis Codes: * Atrial fibrillation, unspecified type [I48.91] Surgeon(s) and Role: * Yang Saez Jr., MD - Primary Anesthesia: Anesthesia type not filed in the log. Blood Products Administered:none Estimated Blood Loss: 10 cc or less 2:24 PM * Sheath/IV: Specimens: * No specimens in log * Grafts/Implants: Implant Name Type Inv. Item Serial No. Vat Washer Lot No. [id number] No. Used Action INGEVITY MRI PACING LEAD IS-1 BIPOLAR 59CM - [id number] Cardiac Pacing Leads or Electrodes or Accessories INGEVITY MRI PACING LEAD IS-1 BIPOLAR 59CM [id number] [employer]- CRM [id number] N/A 1 Implanted 52CM INGEVITY MRI ACTIVE FIXATION PACING LEAD - [id number] Cardiac Pacing Leads or Electrodes or Accessories 52CM INGEVITY MRI ACTIVE FIXATION PACING LEAD [id number] [employer]- CRM [id number] N/A 1 Implanted ACCOLADE MRI PACEMAKER - [id number] Cardiac Pacemaker Generators ACCOLADE MRI DR PACEMAKER [id number] [employer]- CRM [id number] N/A 1 Implanted Yang Saez Jr., MD Date: 06/03/2017Time: 2:24 PM B natriuretic peptide (06/03/2017 3:15 AM)Only the most recent of2 resultswithin the time period is included. Component Value Ref Range BNP 546 (H) 0 - 100 pg/mL Specimen Performing Laboratory Blood [facility] DEPARTMENT OF PATHOLOGY AND GENOMIC MEDICINE [address] [place] [address] Urinalysis screen and microscopy, with reflex to culture (06/02/2017 9:35 PM) Component Value Ref Range Specimen site Clean catch Color, UA Yellow Appearance, UA Hazy Specific gravity, UA 1.011 1.001 - 1.035 pH, UA 6.0 5.0 - 8.5 Protein, UA 1+ (A) Negative Glucose, UA Negative Negative Ketones, UA Negative Negative Bilirubin, UA Negative Negative Blood, UA Large (A) Negative Nitrite, UA Negative Negative Urobilinogen, UA <2.0 <2.0 Leukocyte esterase, UA Negative Negative Epithelial cells, UA <1 /HPF WBC, UA None seen 0 - 1 /HPF RBC, UA 175 (H) 0 - 1 /HPF Bacteria, UA Few None seen Yeast, UA None seen Yeast with pseudohyphae, UA None seen Specimen Performing Laboratory Urine [facility] DEPARTMENT OF PATHOLOGY AND GENOMIC MEDICINE [address] [place] [phone] Urine culture (06/02/2017 9:35 PM) Component Value Ref Range Urine culture SEE COMMENTComment: Bacteriuria screen negative. Specimen Performing Laboratory [facility] DEPARTMENT OF PATHOLOGY AND GENOMIC MEDICINE [address] [place] [address] Thyroid stimulating hormone (06/02/2017 6:30 PM) Component Value Ref Range TSH 1.80 0.27 - 4.20 uIU/mL Specimen Performing Laboratory Plasma specimen [facility] DEPARTMENT OF PATHOLOGY AND GENOMIC MEDICINE [address] [place] [phone] Prealbumin level (06/02/2017 6:30 PM) Component Value Ref Range Prealbumin 20 16 - 32 mg/dL Specimen Performing Laboratory Serum [facility] DEPARTMENT OF PATHOLOGY AND GENOMIC MEDICINE [address] [place] [address] Comprehensive metabolic panel (06/02/2017 6:30 PM) Component Value Ref Range Sodium 140 135 - 148 mEq/L Potassium 4.1 3.5 - 5.0 mEq/L Chloride 101 98 - 112 mEq/L CO2 22 (L) 24 - 31 mEq/L Anion gap 17 (H) 7 - 15 mEq/L Comment: Starting from February , anion gap calculation no longer incorporates potassium. Please note the change. BUN 27 (H) 8 - 23 mg/dL Creatinine 1.2 0.7 - 1.2 mg/dL Glucose 96 65 - 99 mg/dL Calcium 9.3 8.8 - 10.2 mg/dL Protein 6.3 6.3 - 8.3 g/dL Comment: 4.6-7.0 g/dL 1 week 4.4-7.6 g/dL 7 months-1year5.1-7.3 g/dL 1-2 years5.6-7.5 g/dL >3 years6.0-8.0 g/dL 18-150 6.3-8.3 g/dL Albumin 3.6 3.5 - 5.0 g/dL A/G ratio 1.3 0.7 - 3.8 Alkaline phosphatase 62 40 - 129 U/L AST 29 10 - 50 U/L ALT 22 5 - 50 U/L Total bilirubin 0.7 0.0 - 1.2 mg/dL Specimen Performing Laboratory Plasma specimen [facility] DEPARTMENT OF PATHOLOGY AND GENOMIC MEDICINE [address] [place] [address] after 03/17/2017 Insurance Payer Benefit Plan / Group Subscriber ID Type Phone Address MEDICARE MEDICARE PART A AND B xxxxxxxxxx Medicare [facility] xxxxxxxxxx Indemnity INDEMNITY [employer] SUPP xxxxxxxxx Commercial Home: [address] [phone] [place], [facility] [address]
--- OUTSIDE RECORDS SUMMARY | 2018-03-18 08:49 | XMS REPORT ---
:1940 [facility] Address [address] [place] [address] Dr. Liu [address] [place] [id number] Care Team Providers Name Role Phone Mayra LINARES Unavailable Unavailable Stewart GRANDA Unavailable Unavailable Problems This patient has no known problems. Allergies, Adverse Reactions, Alerts This patient has no known allergies or adverse reactions. Medications This patient has no known medications. Results Test Description Test Time Test Comments Text Results Atomic Results Result Comments MAGNESIUM 2017-06-23 06:53:00 Test Item Value Reference Range Comments MAGNESIUM (BEAKER) (test nuan=618) 1.7 mg/dL 1.6-2.6 CBC W/PLT COUNT & AUTO [id number] 05:48:00 Test Item Value Reference Range Comments WHITE BLOOD CELL COUNT (BEAKER) (test csax=011) 13.4 K/ L 3.5-10.5 RED BLOOD CELL COUNT (BEAKER) (test ujwa=345) 4.60 M/ L 4.63-6.08 HEMOGLOBIN (BEAKER) (test vnvi=124) 13.5 GM/DL 13.7-17.5 HEMATOCRIT (BEAKER) (test resh=744) 41.5 % 40.1-51.0 MEAN CORPUSCULAR VOLUME (BEAKER) (test bwcg=530) 90.2 fL 79.0-92.2 MEAN CORPUSCULAR HEMOGLOBIN (BEAKER) (test 29.3 pg 25.7-32.2 celr=498) MEAN CORPUSCULAR HEMOGLOBIN CONC (BEAKER) (test 32.5 GM/DL 32.3-36.5 kqyn=295) RED CELL DISTRIBUTION WIDTH (BEAKER) (test 14.6 % 11.6-14.4 hmuv=231) PLATELET COUNT (BEAKER) (test ujqn=768) 185 K/CU MM 150-450 MEAN PLATELET VOLUME (BEAKER) (test pkjw=202) 10.4 fL 9.4-12.4 NUCLEATED RED BLOOD CELLS (BEAKER) (test 0 /100 WBC 0-0 esuu=482) NEUTROPHILS RELATIVE PERCENT (BEAKER) (test 67 % vryj=504) LYMPHOCYTES RELATIVE PERCENT (BEAKER) (test 20 % uwcp=481) MONOCYTES RELATIVE PERCENT (BEAKER) (test 11 % xdnl=005) EOSINOPHILS RELATIVE PERCENT (BEAKER) (test 2 % yujw=594) BASOPHILS RELATIVE PERCENT (BEAKER) (test 1 % cfhg=921) NEUTROPHILS ABSOLUTE COUNT (BEAKER) (test 8.95 K/ L 1.78-5.38 zldp=740) LYMPHOCYTES ABSOLUTE COUNT (BEAKER) (test 2.63 K/ L 1.32-3.57 tzdx=422) MONOCYTES ABSOLUTE COUNT (BEAKER) (test 1.50 K/ L 0.30-0.82 kgdz=982) EOSINOPHILS ABSOLUTE COUNT (BEAKER) (test 0.20 K/ L 0.04-0.54 ydbr=085) BASOPHILS ABSOLUTE COUNT (BEAKER) (test 0.08 K/ L 0.01-0.08 dbkb=650) IMMATURE GRANULOCYTES-RELATIVE PERCENT (BEAKER) 1 % 0-1 (test nuzv=6375) CALCIUM, [id number] 05:32:00 Test Item Value Reference Range Comments CALCIUM IONIZED (BEAKER) (test ujok=916) 1.00 mmol/L 1.12-1.27 PH, BLOOD (BEAKER) (test dbqn=4376) 7.38 B-TYPE NATRIURETIC FACTOR (BNP)2017-06-23 05:22:00 Test Item Value Reference Range Comments B-TYPE NATRIURETIC PEPTIDE (BEAKER) (test 2170 pg/mL 0-100 eifw=926) [id number] 05:19:00 Test Item Value Reference Range Comments PHOSPHORUS (BEAKER) (test hxrm=498) 4.1 mg/dL 2.3-4.7 BASIC METABOLIC [id number] 05:19:00 Test Item Value Reference Range Comments SODIUM (BEAKER) (test 132 meq/L 136-145 ults=799) POTASSIUM (BEAKER) (test 4.3 meq/L 3.5-5.1 kavk=849) CHLORIDE (BEAKER) (test 102 meq/L 98-107 hirg=029) CO2 (BEAKER) (test 18 meq/L 22-29 qqyb=984) BLOOD UREA NITROGEN 38 mg/dL 7-21 (BEAKER) (test jwlm=113) CREATININE (BEAKER) (test 1.39 mg/dL 0.57-1.25 zmii=644) GLUCOSE RANDOM (BEAKER) 101 mg/dL 70-105 (test bvlg=985) CALCIUM (BEAKER) (test 8.7 mg/dL 8.4-10.2 awjt=144) EGFR (BEAKER) (test 50 mL/min/1.73 sq m ESTIMATED GFR IS NOT zhjz=6522) ACCURATE CREATININE CLEARANCE IN PREDICTING GLOMERULAR FILTRATION RATE. ESTIMATED GFR IS NOT APPLICABLE FOR DIALYSIS PATIENTS. CALCIUM, [id number] 03:03:00 Test Item Value Reference Range Comments CALCIUM IONIZED (BEAKER) (test dqhg=096) 1.04 mmol/L 1.12-1.27 PH, BLOOD (BEAKER) (test hpmj=7232) 7.40 [id number] 02:41:00 Test Item Value Reference Range Comments PHOSPHORUS (BEAKER) (test cssd=379) 3.9 mg/dL 2.3-4.7 [id number] 02:41:00 Test Item Value Reference Range Comments MAGNESIUM (BEAKER) (test ftfm=007) 1.6 mg/dL 1.6-2.6 COMPREHENSIVE METABOLIC [id number] 02:41:00 Test Item Value Reference Range Comments TOTAL PROTEIN (BEAKER) 6.0 gm/dL 6.0-8.3 (test ztbq=504) ALBUMIN (BEAKER) (test 3.5 g/dL 3.5-5.0 xyfy=2779) ALKALINE PHOSPHATASE 67 U/L 40-150 (BEAKER) (test yavb=635) BILIRUBIN TOTAL (BEAKER) 1.0 mg/dL 0.2-1.2 (test paxk=291) SODIUM (BEAKER) (test 130 meq/L 136-145 ajmm=772) POTASSIUM (BEAKER) (test 4.4 meq/L 3.5-5.1 mltj=811) CHLORIDE (BEAKER) (test 101 meq/L 98-107 jpuw=267) CO2 (BEAKER) (test 17 meq/L 22-29 tnra=992) BLOOD UREA NITROGEN 37 mg/dL 7-21 (BEAKER) (test dedd=409) CREATININE (BEAKER) (test 1.30 mg/dL 0.57-1.25 qyoq=881) GLUCOSE RANDOM (BEAKER) 102 mg/dL 70-105 (test exzu=561) CALCIUM (BEAKER) (test 8.5 mg/dL 8.4-10.2 ghym=337) AST (SGOT) (BEAKER) (test 218 U/L 5-34 tgan=670) ALT (SGPT) (BEAKER) (test 373 U/L 6-55 ihic=518) EGFR (BEAKER) (test 54 mL/min/1.73 sq m ESTIMATED GFR IS NOT xwih=8947) ACCURATE CREATININE CLEARANCE IN PREDICTING GLOMERULAR FILTRATION RATE. ESTIMATED GFR IS NOT APPLICABLE FOR DIALYSIS PATIENTS. CBC W/PLT COUNT & AUTO [id number] 02:36:00 Test Item Value Reference Range Comments WHITE BLOOD CELL COUNT (BEAKER) (test vzim=191) 12.7 K/ L 3.5-10.5 RED BLOOD CELL COUNT (BEAKER) (test vuzy=808) 4.28 M/ L 4.63-6.08 HEMOGLOBIN (BEAKER) (test myvl=521) 12.8 GM/DL 13.7-17.5 HEMATOCRIT (BEAKER) (test yxlp=311) 38.2 % 40.1-51.0 MEAN CORPUSCULAR VOLUME (BEAKER) (test xxxw=164) 89.3 fL 79.0-92.2 MEAN CORPUSCULAR HEMOGLOBIN (BEAKER) (test 29.9 pg 25.7-32.2 hwxy=016) MEAN CORPUSCULAR HEMOGLOBIN CONC (BEAKER) (test 33.5 GM/DL 32.3-36.5 wzqh=740) RED CELL DISTRIBUTION WIDTH (BEAKER) (test 14.6 % 11.6-14.4 ahaw=085) PLATELET COUNT (BEAKER) (test ymnh=238) 196 K/CU MM 150-450 MEAN PLATELET VOLUME (BEAKER) (test pxqa=796) 10.6 fL 9.4-12.4 NUCLEATED RED BLOOD CELLS (BEAKER) (test 0 /100 WBC 0-0 ryeb=482) NEUTROPHILS RELATIVE PERCENT (BEAKER) (test 67 % bmca=499) LYMPHOCYTES RELATIVE PERCENT (BEAKER) (test 19 % jspv=197) MONOCYTES RELATIVE PERCENT (BEAKER) (test 11 % kpyi=609) EOSINOPHILS RELATIVE PERCENT (BEAKER) (test 1 % quut=264) BASOPHILS RELATIVE PERCENT (BEAKER) (test 1 % hdku=940) NEUTROPHILS ABSOLUTE COUNT (BEAKER) (test 8.55 K/ L 1.78-5.38 ggvy=274) LYMPHOCYTES ABSOLUTE COUNT (BEAKER) (test 2.41 K/ L 1.32-3.57 zfvi=714) MONOCYTES ABSOLUTE COUNT (BEAKER) (test 1.43 K/ L 0.30-0.82 hxhh=206) EOSINOPHILS ABSOLUTE COUNT (BEAKER) (test 0.18 K/ L 0.04-0.54 szge=716) BASOPHILS ABSOLUTE COUNT (BEAKER) (test 0.06 K/ L 0.01-0.08 xflm=327) IMMATURE GRANULOCYTES-RELATIVE PERCENT (BEAKER) 0 % 0-1 (test zoat=6770) POCT-GLUCOSE [id number] 02:31:00 Test Item Value Reference Range Comments POC-GLUCOSE METER (BEAKER) 108 mg/dL 70-110 TESTED AT [facility] [address] [facility] (test ieev=8946) [facility] [address] BASIC METABOLIC [id number] 17:40:00 Test Item Value Reference Range Comments SODIUM (BEAKER) (test 131 meq/L 136-145 ehkb=979) POTASSIUM (BEAKER) (test 5.6 meq/L 3.5-5.1 Specimen markedly ybzv=057) hemolyzed CHLORIDE (BEAKER) (test 100 meq/L 98-107 trzf=756) CO2 (BEAKER) (test 21 meq/L 22-29 mgqr=833) BLOOD UREA NITROGEN 37 mg/dL 7-21 (BEAKER) (test uhlh=305) CREATININE (BEAKER) (test 1.35 mg/dL 0.57-1.25 Specimen markedly scip=044) hemolyzed GLUCOSE RANDOM (BEAKER) 123 mg/dL 70-105 (test yata=009) CALCIUM (BEAKER) (test 8.7 mg/dL 8.4-10.2 ehfg=847) EGFR (BEAKER) (test 52 mL/min/1.73 sq m ESTIMATED GFR IS NOT okfn=2522) ACCURATE CREATININE CLEARANCE IN PREDICTING GLOMERULAR FILTRATION RATE. ESTIMATED GFR IS NOT APPLICABLE FOR DIALYSIS PATIENTS. HEPATITIS B SURFACE [id number] 14:35:00 Test Item Value Reference Range Comments HEPATITIS B SURFACE ANTIBODY (BEAKER) (test < mIU/mL <8.0 maqn=198) HEPATITIS B SURFACE [id number] 14:17:00 Test Item Value Reference Range Comments HEPATITIS B SURFACE ANTIGEN (2) (BEAKER) (test Nonreactive Nonreactive omqs=3820) HEPATITIS B CORE ANTIBODY, [id number] 14:17:00 Test Item Value Reference Range Comments HEPATITIS B CORE IGM ANTIBODY (BEAKER) (test Nonreactive Nonreactive njdd=437) HEPATITIS C [id number] 14:17:00 Test Item Value Reference Range Comments HEPATITIS C ANTIBODY (BEAKER) (test upho=386) Nonreactive Nonreactive BLOOD GAS, [id number] 13:48:00 Test Item Value Reference Range Comments PH VENOUS (BEAKER) (test dgrm=226) 7.40 7.32-7.42 PCO2 VENOUS (BEAKER) (test rfaj=620) 33 mmHg 41-51 PO2 VENOUS (BEAKER) (test srjz=382) 54 mmHg 25-40 O2 SATURATION VENOUS (BEAKER) (test fvsu=983) 90.4 % 40.0-70.0 HCO3 VENOUS (BEAKER) (test uciy=460) 20 mmol/L 21-29 BASE EXCESS VENOUS (BEAKER) (test kduz=111) -4.6 mmol/L -2.0-3.0 PATIENT TEMPERATURE (BEAKER) (test qlgf=9858) 35.6 C FIO2 (BEAKER) (test tzlp=1955) 21.0 % CBC W/PLT COUNT & AUTO [id number] 08:07:00 Test Item Value Reference Range Comments WHITE BLOOD CELL COUNT 11.6 K/ L 3.5-10.5 (BEAKER) (test adib=814) RED BLOOD CELL COUNT (BEAKER) 4.49 M/ L 4.63-6.08 (test nprv=874) HEMOGLOBIN (BEAKER) (test 13.3 GM/DL 13.7-17.5 alim=884) HEMATOCRIT (BEAKER) (test 42.1 % 40.1-51.0 tzdt=883) MEAN CORPUSCULAR VOLUME 93.8 fL 79.0-92.2 Discordant from previous (BEAKER) (test wrmn=168) results MEAN CORPUSCULAR HEMOGLOBIN 29.6 pg 25.7-32.2 (BEAKER) (test vlms=195) MEAN CORPUSCULAR HEMOGLOBIN 31.6 GM/DL 32.3-36.5 CONC (BEAKER) (test ntlw=160) RED CELL DISTRIBUTION WIDTH 14.6 % 11.6-14.4 (BEAKER) (test ohdr=792) PLATELET COUNT (BEAKER) (test 171 K/CU MM 150-450 smpi=961) MEAN PLATELET VOLUME (BEAKER) 10.9 fL 9.4-12.4 (test yrob=231) NUCLEATED RED BLOOD CELLS 0 /100 WBC 0-0 (BEAKER) (test szpf=758) NEUTROPHILS RELATIVE PERCENT 64 % (BEAKER) (test qwfh=102) LYMPHOCYTES RELATIVE PERCENT 24 % (BEAKER) (test eesx=428) MONOCYTES RELATIVE PERCENT 9 % (BEAKER) (test hbcr=275) EOSINOPHILS RELATIVE PERCENT 2 % (BEAKER) (test ypim=823) BASOPHILS RELATIVE PERCENT 1 % (BEAKER) (test dawm=905) NEUTROPHILS ABSOLUTE COUNT 7.41 K/ L 1.78-5.38 (BEAKER) (test lyet=006) LYMPHOCYTES ABSOLUTE COUNT 2.75 K/ L 1.32-3.57 (BEAKER) (test cjvi=827) MONOCYTES ABSOLUTE COUNT 1.02 K/ L 0.30-0.82 (BEAKER) (test ldth=944) EOSINOPHILS ABSOLUTE COUNT 0.18 K/ L 0.04-0.54 (BEAKER) (test ykho=677) BASOPHILS ABSOLUTE COUNT 0.08 K/ L 0.01-0.08 (BEAKER) (test fhro=795) IMMATURE GRANULOCYTES-RELATIVE 1 % 0-1 PERCENT (BEAKER) (test tipn=0016) [id number] 07:28:00 Test Item Value Reference Range Comments MAGNESIUM (BEAKER) (test 1.9 mg/dL 1.6-2.6 Specimen slightly hemolyzed ozps=350) [id number] 07:28:00 Test Item Value Reference Range Comments PHOSPHORUS (BEAKER) (test 4.1 mg/dL 2.3-4.7 Specimen slightly hemolyzed gwcd=928) COMPREHENSIVE METABOLIC [id number] 07:28:00 Test Item Value Reference Range Comments TOTAL PROTEIN (BEAKER) 6.2 gm/dL 6.0-8.3 Specimen slightly (test ijjv=532) hemolyzed ALBUMIN (BEAKER) (test 3.5 g/dL 3.5-5.0 Specimen slightly pckt=3843) hemolyzed ALKALINE PHOSPHATASE 68 U/L 40-150 (BEAKER) (test lnsj=927) BILIRUBIN TOTAL (BEAKER) 1.1 mg/dL 0.2-1.2 Specimen slightly (test xowc=864) hemolyzed SODIUM (BEAKER) (test 128 meq/L 136-145 oekf=650) POTASSIUM (BEAKER) (test 4.7 meq/L 3.5-5.1 Specimen slightly sajm=822) hemolyzed CHLORIDE (BEAKER) (test 103 meq/L 98-107 befl=045) CO2 (BEAKER) (test 12 meq/L 22-29 fwjo=879) BLOOD UREA NITROGEN 38 mg/dL 7-21 (BEAKER) (test ykws=850) CREATININE (BEAKER) (test 1.37 mg/dL 0.57-1.25 Specimen slightly dvpi=108) hemolyzed GLUCOSE RANDOM (BEAKER) 111 mg/dL 70-105 (test exqj=125) CALCIUM (BEAKER) (test 8.5 mg/dL 8.4-10.2 zevu=035) AST (SGOT) (BEAKER) (test 269 U/L 5-34 Specimen slightly ydcs=198) hemolyzed ALT (SGPT) (BEAKER) (test 401 U/L 6-55 Specimen slightly ezmf=336) hemolyzed EGFR (BEAKER) (test 51 mL/min/1.73 sq m ESTIMATED GFR IS NOT vuya=3243) ACCURATE CREATININE CLEARANCE IN PREDICTING GLOMERULAR FILTRATION RATE. ESTIMATED GFR IS NOT APPLICABLE FOR DIALYSIS PATIENTS. CALCIUM, [id number] 07:10:00 Test Item Value Reference Range Comments CALCIUM IONIZED (BEAKER) (test godf=914) 0.94 mmol/L 1.12-1.27 PH, BLOOD (BEAKER) (test fuiq=3971) 7.39 HEPATIC FUNCTION [id number] 15:02:00 Test Item Value Reference Range Comments TOTAL PROTEIN (BEAKER) (test dpjl=576) 5.8 gm/dL 6.0-8.3 ALBUMIN (BEAKER) (test szhm=8363) 3.4 g/dL 3.5-5.0 BILIRUBIN TOTAL (BEAKER) (test yker=760) 0.7 mg/dL 0.2-1.2 BILIRUBIN DIRECT (BEAKER) (test yskf=197) 0.4 mg/dL 0.1-0.5 ALKALINE PHOSPHATASE (BEAKER) (test gsvr=338) 71 U/L 40-150 AST (SGOT) (BEAKER) (test iuuh=491) 253 U/L 5-34 ALT (SGPT) (BEAKER) (test yeuv=817) 382 U/L 6-55 BASIC METABOLIC [id number] 15:02:00 Test Item Value Reference Range Comments SODIUM (BEAKER) (test 130 meq/L 136-145 pxab=678) POTASSIUM (BEAKER) (test 4.4 meq/L 3.5-5.1 jdpw=691) CHLORIDE (BEAKER) (test 100 meq/L 98-107 xvdx=865) CO2 (BEAKER) (test 19 meq/L 22-29 jwas=182) BLOOD UREA NITROGEN 41 mg/dL 7-21 (BEAKER) (test bgyd=689) CREATININE (BEAKER) (test 1.36 mg/dL 0.57-1.25 zehd=113) GLUCOSE RANDOM (BEAKER) 148 mg/dL 70-105 (test ubay=581) CALCIUM (BEAKER) (test 8.3 mg/dL 8.4-10.2 hltq=795) EGFR (BEAKER) (test 51 mL/min/1.73 sq m ESTIMATED GFR IS NOT prdu=8098) ACCURATE CREATININE CLEARANCE IN PREDICTING GLOMERULAR FILTRATION RATE. ESTIMATED GFR IS NOT APPLICABLE FOR DIALYSIS PATIENTS. [id number] 14:54:00 Test Item Value Reference Range Comments AMMONIA (BEAKER) (test jxxv=788) 44 mol/L 18-72 [id number] 05:33:00 Test Item Value Reference Range Comments PHOSPHORUS (BEAKER) (test ulad=954) 3.7 mg/dL 2.3-4.7 [id number] 05:33:00 Test Item Value Reference Range Comments MAGNESIUM (BEAKER) (test vuyh=189) 1.9 mg/dL 1.6-2.6 BASIC METABOLIC [id number] 05:33:00 Test Item Value Reference Range Comments SODIUM (BEAKER) (test 130 meq/L 136-145 lkwv=559) POTASSIUM (BEAKER) (test 4.3 meq/L 3.5-5.1 xsgn=396) CHLORIDE (BEAKER) (test 100 meq/L 98-107 pcdk=976) CO2 (BEAKER) (test 20 meq/L 22-29 xnsl=106) BLOOD UREA NITROGEN 39 mg/dL 7-21 (BEAKER) (test grcp=926) CREATININE (BEAKER) (test 1.54 mg/dL 0.57-1.25 oafk=372) GLUCOSE RANDOM (BEAKER) 109 mg/dL 70-105 (test grla=932) CALCIUM (BEAKER) (test 8.5 mg/dL 8.4-10.2 xxrv=838) EGFR (BEAKER) (test 44 mL/min/1.73 sq m ESTIMATED GFR IS NOT yyst=8866) ACCURATE CREATININE CLEARANCE IN PREDICTING GLOMERULAR FILTRATION RATE. ESTIMATED GFR IS NOT APPLICABLE FOR DIALYSIS PATIENTS. BASIC METABOLIC [id number] 19:59:00 Test Item Value Reference Range Comments SODIUM (BEAKER) (test 126 meq/L 136-145 wnmg=791) POTASSIUM (BEAKER) (test 4.6 meq/L 3.5-5.1 oopa=360) CHLORIDE (BEAKER) (test 97 meq/L 98-107 inrx=706) CO2 (BEAKER) (test 19 meq/L 22-29 daco=035) BLOOD UREA NITROGEN 40 mg/dL 7-21 (BEAKER) (test gxgx=812) CREATININE (BEAKER) (test 1.49 mg/dL 0.57-1.25 vqyo=496) GLUCOSE RANDOM (BEAKER) 146 mg/dL 70-105 (test vfzy=205) CALCIUM (BEAKER) (test 8.9 mg/dL 8.4-10.2 kewx=873) EGFR (BEAKER) (test 46 mL/min/1.73 sq m ESTIMATED GFR IS NOT ivvm=4169) ACCURATE CREATININE CLEARANCE IN PREDICTING GLOMERULAR FILTRATION RATE. ESTIMATED GFR IS NOT APPLICABLE FOR DIALYSIS PATIENTS. BASIC METABOLIC [id number] 13:46:00 Test Item Value Reference Range Comments SODIUM (BEAKER) (test 128 meq/L 136-145 fgcs=495) POTASSIUM (BEAKER) (test 4.6 meq/L 3.5-5.1 pamd=302) CHLORIDE (BEAKER) (test 99 meq/L 98-107 whwa=500) CO2 (BEAKER) (test 17 meq/L 22-29 dzlf=565) BLOOD UREA NITROGEN 40 mg/dL 7-21 (BEAKER) (test ehxv=910) CREATININE (BEAKER) (test 1.44 mg/dL 0.57-1.25 evsb=849) GLUCOSE RANDOM (BEAKER) 113 mg/dL 70-105 (test btlh=463) CALCIUM (BEAKER) (test 8.8 mg/dL 8.4-10.2 rgtp=666) EGFR (BEAKER) (test 48 mL/min/1.73 sq m ESTIMATED GFR IS NOT ypid=4836) ACCURATE CREATININE CLEARANCE IN PREDICTING GLOMERULAR FILTRATION RATE. ESTIMATED GFR IS NOT APPLICABLE FOR DIALYSIS PATIENTS. URIC [id number] 08:15:00 Test Item Value Reference Range Comments URIC ACID (BEAKER) (test nkhk=246) 8.9 mg/dL 2.6-7.2 [id number] 08:15:00 Test Item Value Reference Range Comments MAGNESIUM (BEAKER) (test kbqn=707) 1.9 mg/dL 1.6-2.6 [id number] 08:15:00 Test Item Value Reference Range Comments PHOSPHORUS (BEAKER) (test sihf=290) 3.8 mg/dL 2.3-4.7 BASIC METABOLIC [id number] 08:15:00 Test Item Value Reference Range Comments SODIUM (BEAKER) (test 127 meq/L 136-145 grso=497) POTASSIUM (BEAKER) (test 4.6 meq/L 3.5-5.1 dfdr=270) CHLORIDE (BEAKER) (test 98 meq/L 98-107 zpuu=577) CO2 (BEAKER) (test 20 meq/L 22-29 ciyc=960) BLOOD UREA NITROGEN 39 mg/dL 7-21 (BEAKER) (test mmze=527) CREATININE (BEAKER) (test 1.46 mg/dL 0.57-1.25 oojw=797) GLUCOSE RANDOM (BEAKER) 91 mg/dL 70-105 (test xtbr=978) CALCIUM (BEAKER) (test 8.8 mg/dL 8.4-10.2 ioca=576) EGFR (BEAKER) (test 47 mL/min/1.73 sq m ESTIMATED GFR IS NOT hchx=4304) ACCURATE CREATININE CLEARANCE IN PREDICTING GLOMERULAR FILTRATION RATE. ESTIMATED GFR IS NOT APPLICABLE FOR DIALYSIS PATIENTS. CREATINE KINASE (CK)2017-06-19 08:15:00 Test Item Value Reference Range Comments CREATINE KINASE TOTAL (BEAKER) (test gjak=763) 739 U/L 29-200 CALCIUM, [id number] 07:24:00 Test Item Value Reference Range Comments CALCIUM IONIZED (BEAKER) (test xkwv=007) 1.07 mmol/L 1.12-1.27 PH, BLOOD (BEAKER) (test yccg=4843) 7.35 TSH/FREE T4 IF [id number] 05:53:00 Test Item Value Reference Range Comments THYROID STIMULATING HORMONE (BEAKER) (test 1.66 uIU/mL 0.35-4.94 lkvj=319) CBC W/PLT COUNT & AUTO [id number] 05:35:00 Test Item Value Reference Range Comments WHITE BLOOD CELL COUNT (BEAKER) (test mprk=628) 11.7 K/ L 3.5-10.5 RED BLOOD CELL COUNT (BEAKER) (test hlnz=925) 4.51 M/ L 4.63-6.08 HEMOGLOBIN (BEAKER) (test qhjb=137) 13.4 GM/DL 13.7-17.5 HEMATOCRIT (BEAKER) (test gvqi=130) 40.4 % 40.1-51.0 MEAN CORPUSCULAR VOLUME (BEAKER) (test bcmd=328) 89.6 fL 79.0-92.2 MEAN CORPUSCULAR HEMOGLOBIN (BEAKER) (test 29.7 pg 25.7-32.2 ioee=700) MEAN CORPUSCULAR HEMOGLOBIN CONC (BEAKER) (test 33.2 GM/DL 32.3-36.5 pptu=334) RED CELL DISTRIBUTION WIDTH (BEAKER) (test 14.3 % 11.6-14.4 isan=115) PLATELET COUNT (BEAKER) (test hnsg=623) 165 K/CU MM 150-450 MEAN PLATELET VOLUME (BEAKER) (test mmsp=891) 11.0 fL 9.4-12.4 NUCLEATED RED BLOOD CELLS (BEAKER) (test 0 /100 WBC 0-0 ugal=599) NEUTROPHILS RELATIVE PERCENT (BEAKER) (test 74 % tjzk=762) LYMPHOCYTES RELATIVE PERCENT (BEAKER) (test 14 % vwvf=702) MONOCYTES RELATIVE PERCENT (BEAKER) (test 10 % xibg=954) EOSINOPHILS RELATIVE PERCENT (BEAKER) (test 1 % imph=760) BASOPHILS RELATIVE PERCENT (BEAKER) (test 0 % hokj=006) NEUTROPHILS ABSOLUTE COUNT (BEAKER) (test 8.69 K/ L 1.78-5.38 hijh=268) LYMPHOCYTES ABSOLUTE COUNT (BEAKER) (test 1.68 K/ L 1.32-3.57 iaje=295) MONOCYTES ABSOLUTE COUNT (BEAKER) (test 1.12 K/ L 0.30-0.82 ldjd=153) EOSINOPHILS ABSOLUTE COUNT (BEAKER) (test 0.11 K/ L 0.04-0.54 tbic=543) BASOPHILS ABSOLUTE COUNT (BEAKER) (test 0.05 K/ L 0.01-0.08 uoyf=392) IMMATURE GRANULOCYTES-RELATIVE PERCENT (BEAKER) 1 % 0-1 (test yasm=2051) B-TYPE NATRIURETIC FACTOR (BNP)2017-06-19 05:31:00 Test Item Value Reference Range Comments B-TYPE NATRIURETIC PEPTIDE (BEAKER) (test 740 pg/mL 0-100 enek=265) BASIC METABOLIC [id number] 02:53:00 Test Item Value Reference Range Comments SODIUM (BEAKER) (test 128 meq/L 136-145 napu=601) POTASSIUM (BEAKER) (test 4.7 meq/L 3.5-5.1 qzxh=243) CHLORIDE (BEAKER) (test 101 meq/L 98-107 pbgm=018) CO2 (BEAKER) (test 18 meq/L 22-29 jvij=534) BLOOD UREA NITROGEN 38 mg/dL 7-21 (BEAKER) (test jkyd=967) CREATININE (BEAKER) (test 1.55 mg/dL 0.57-1.25 jrmi=775) GLUCOSE RANDOM (BEAKER) 94 mg/dL 70-105 (test uhgd=465) CALCIUM (BEAKER) (test 8.5 mg/dL 8.4-10.2 cpmb=135) EGFR (BEAKER) (test 44 mL/min/1.73 sq m ESTIMATED GFR IS NOT llmx=1816) ACCURATE CREATININE CLEARANCE IN PREDICTING GLOMERULAR FILTRATION RATE. ESTIMATED GFR IS NOT APPLICABLE FOR DIALYSIS PATIENTS. OSMOLALITY, [id number] 02:44:00 Test Item Value Reference Range Comments OSMOLALITY URINE (BEAKER) (test llvh=242) 677 mOsm/kg 40-1400 [id number] 19:42:00 Test Item Value Reference Range Comments CORTISOL, TOTAL (BEAKER) (test qlpa=9267) 17.4 ug/dL 3.7-19.4 [id number] 19:13:00 Test Item Value Reference Range Comments SODIUM (BEAKER) (test vujt=878) 128 meq/L 136-145 POTASSIUM (BEAKER) (test warg=619) 4.9 meq/L 3.5-5.1 CHLORIDE (BEAKER) (test ihcx=896) 100 meq/L 98-107 CO2 (BEAKER) (test wktt=099) 18 meq/L 22-29 Call [id number] METABOLIC [id number] 19:13:00 Test Item Value Reference Range Comments SODIUM (BEAKER) (test 128 meq/L 136-145 bgly=566) POTASSIUM (BEAKER) (test 4.9 meq/L 3.5-5.1 cxxz=696) CHLORIDE (BEAKER) (test 100 meq/L 98-107 jpcd=523) CO2 (BEAKER) (test 18 meq/L 22-29 zurd=788) BLOOD UREA NITROGEN 38 mg/dL 7-21 (BEAKER) (test wtif=236) CREATININE (BEAKER) (test 1.43 mg/dL 0.57-1.25 osym=531) GLUCOSE RANDOM (BEAKER) 98 mg/dL 70-105 (test xpcb=193) CALCIUM (BEAKER) (test 8.3 mg/dL 8.4-10.2 tpuu=681) EGFR (BEAKER) (test 48 mL/min/1.73 sq m ESTIMATED GFR IS NOT bysg=9296) ACCURATE CREATININE CLEARANCE IN PREDICTING GLOMERULAR FILTRATION RATE. ESTIMATED GFR IS NOT APPLICABLE FOR DIALYSIS PATIENTS. Call [id number], RANDOM [id number] 12:24:00 Test Item Value Reference Range Comments PROTEIN, URINE (BEAKER) (test ipbj=0482) 231 mg/dL 0-14 URINALYSIS W/ [id number] 11:52:00 Test Item Value Reference Range Comments COLOR (BEAKER) (test atqy=854) Yellow CLARITY (BEAKER) (test yoqw=798) Hazy SPECIFIC GRAVITY UA (BEAKER) (test cykg=511) 1.018 1.001-1.035 PH UA (BEAKER) (test agph=140) 5.5 5.0-8.0 PROTEIN UA (BEAKER) (test vswx=802) 200 mg/dL Negative GLUCOSE UA (BEAKER) (test wmcx=885) Negative Negative KETONES UA (BEAKER) (test sytf=897) Negative Negative BILIRUBIN UA (BEAKER) (test lnmx=487) Negative Negative BLOOD UA (BEAKER) (test vxds=624) Large Negative NITRITE UA (BEAKER) (test ubjy=916) Negative Negative LEUKOCYTE ESTERASE UA (BEAKER) (test kxxk=706) Moderate Negative UROBILINOGEN UA (BEAKER) (test xbal=477) 0.2 mg/dL 0.2-1.0 RBC UA (BEAKER) (test ysiu=217) 441 /HPF WBC UA (BEAKER) (test hwlw=373) 66 /HPF MUCUS (BEAKER) (test rwwr=8384) Rare SQUAMOUS EPITHELIAL (BEAKER) (test vqcn=114) < /HPF HYALINE CASTS (BEAKER) (test umrh=138) 15 /LPF SOURCE(BEAKER) (test tdti=5043) Urine, Murphy CREATININE, RANDOM [id number] 11:32:00 Test Item Value Reference Range Comments CREATININE URINE (BEAKER) (test lyqt=743) 139.8 mg/dL Reference Range: No NormalsSODIUM, RANDOM [id number] 11:32:00 Test Item Value Reference Range Comments SODIUM URINE (BEAKER) (test vkxq=138) 27 meq/L Reference Range: No NormalsBASIC METABOLIC [id number] 11:10:00 Test Item Value Reference Range Comments SODIUM (BEAKER) (test 126 meq/L 136-145 ules=935) POTASSIUM (BEAKER) (test 5.0 meq/L 3.5-5.1 bnrg=092) CHLORIDE (BEAKER) (test 97 meq/L 98-107 kxrz=295) CO2 (BEAKER) (test 20 meq/L 22-29 fkjn=740) BLOOD UREA NITROGEN 39 mg/dL 7-21 (BEAKER) (test vaul=338) CREATININE (BEAKER) (test 1.51 mg/dL 0.57-1.25 wpks=580) GLUCOSE RANDOM (BEAKER) 130 mg/dL 70-105 (test trdz=650) CALCIUM (BEAKER) (test 8.4 mg/dL 8.4-10.2 idfn=987) EGFR (BEAKER) (test 45 mL/min/1.73 sq m ESTIMATED GFR IS NOT snvo=2766) ACCURATE CREATININE CLEARANCE IN PREDICTING GLOMERULAR FILTRATION RATE. ESTIMATED GFR IS NOT APPLICABLE FOR DIALYSIS PATIENTS. TISSUE [id number] 10:04:00Surgical Pathology Report Case: [id number] Authorizing Provider: Jacky Linares MD Collected: 06/16/2017 1213 Ordering Location: [facility] Received: 06/16/2017 1416 SERVICES Pathologist: Cristo Matta MD Specimen: Prostate , TURP, Prostate chips PROSTATE, TRANS-URETHRAL RESECTION: - NODULAR HYPERPLASIA [id number] with urinary obstruction, hematuria Prostate chipsThe specimen is received in aformalin- filled container labeled with the patient's information and labeled "prostate chips" and consists of 3 gm of multiple hahn-pink hahn-pink prostate chips measuring 3 x 2 x 1 cm in aggregate. The specimen is entirely submitted in A1- A3. CG/ew Performed.BASIC METABOLIC [id number] 07:32:00 Test Item Value Reference Range Comments SODIUM (BEAKER) (test 127 meq/L 136-145 evgd=547) POTASSIUM (BEAKER) (test 5.0 meq/L 3.5-5.1 yehq=345) CHLORIDE (BEAKER) (test 99 meq/L 98-107 nlgv=149) CO2 (BEAKER) (test 17 meq/L 22-29 jhzf=743) BLOOD UREA NITROGEN 37 mg/dL 7-21 (BEAKER) (test jnnf=764) CREATININE (BEAKER) (test 1.45 mg/dL 0.57-1.25 pmag=584) GLUCOSE RANDOM (BEAKER) 107 mg/dL 70-105 (test aims=969) CALCIUM (BEAKER) (test 8.4 mg/dL 8.4-10.2 pdtg=189) EGFR (BEAKER) (test 47 mL/min/1.73 sq m ESTIMATED GFR IS NOT ldvl=6392) ACCURATE CREATININE CLEARANCE IN PREDICTING GLOMERULAR FILTRATION RATE. ESTIMATED GFR IS NOT APPLICABLE FOR DIALYSIS PATIENTS. OSMOLALITY, [id number] 02:38:00 Test Item Value Reference Range Comments OSMOLALITY URINE (BEAKER) (test umvn=579) 590 mOsm/kg 40-1400 URINALYSIS W/ REFLEX URINE [id number] 02:34:00 Test Item Value Reference Range Comments COLOR (BEAKER) (test fyna=256) Yellow CLARITY (BEAKER) (test fpdb=884) Hazy SPECIFIC GRAVITY UA (BEAKER) (test zqrl=871) 1.017 1.001-1.035 PH UA (BEAKER) (test sqsx=826) 6.0 5.0-8.0 PROTEIN UA (BEAKER) (test ufme=797) 300 mg/dL Negative GLUCOSE UA (BEAKER) (test fcbn=842) Negative Negative KETONES UA (BEAKER) (test gdqn=734) Negative Negative BILIRUBIN UA (BEAKER) (test jvrd=512) Negative Negative BLOOD UA (BEAKER) (test eshe=159) Large Negative NITRITE UA (BEAKER) (test oywn=022) Negative Negative LEUKOCYTE ESTERASE UA (BEAKER) (test pzfk=793) Moderate Negative UROBILINOGEN UA (BEAKER) (test prdy=957) 0.2 mg/dL 0.2-1.0 RBC UA (BEAKER) (test tqnh=742) > /HPF WBC UA (BEAKER) (test gous=402) 44 /HPF AMORPHOUS CRYSTALS (BEAKER) (test cmqk=1506) Occasional YEAST (BEAKER) (test bwio=2778) Occasional SOURCE(BEAKER) (test cmdo=7299) CREATININE, RANDOM [id number] 02:19:00 Test Item Value Reference Range Comments CREATININE URINE (BEAKER) (test wqqf=184) 163.8 mg/dL Reference Range: No NormalsSODIUM, RANDOM [id number] 02:19:00 Test Item Value Reference Range Comments SODIUM URINE (BEAKER) (test yvyw=667) 44 meq/L Reference Range: No NormalsTROPONIN [id number] 00:46:00 Test Item Value Reference Range Comments TROPONIN I (BEAKER) (test amiw=959) 0.09 ng/mL 0.00-0.03 Effective 10/10/2014: Reference Range ChangeNew: 0.00-0.03 Previous 0.00- 0.15Troponin I (TnI) levels must be interpreted in the context of the presenting symptoms and the clinical findings. Elevated TnI levels indicate myocardial damage, but are not specific for ischemic heart disease. Elevated TnI levels are seen in patients with other cardiac conditions (including myocarditis and congestive heartfailure), and slight TnI elevations occur in patients with other conditions, including sepsis, renalfailure, acidosis, acute neurological disease, and persistent tachyarrhythmia.[id number] 00:38: 00 Test Item Value Reference Range Comments PHOSPHORUS (BEAKER) (test kqfh=845) 4.8 mg/dL 2.3-4.7 [id number] 00:38:00 Test Item Value Reference Range Comments MAGNESIUM (BEAKER) (test gebt=938) 1.9 mg/dL 1.6-2.6 BASIC METABOLIC [id number] 00:38:00 Test Item Value Reference Range Comments SODIUM (BEAKER) (test 125 meq/L 136-145 kyyq=903) POTASSIUM (BEAKER) (test 5.3 meq/L 3.5-5.1 jidc=773) CHLORIDE (BEAKER) (test 97 meq/L 98-107 wmdj=339) CO2 (BEAKER) (test 17 meq/L 22-29 bwcj=400) BLOOD UREA NITROGEN 34 mg/dL 7-21 (BEAKER) (test huxp=725) CREATININE (BEAKER) (test 1.66 mg/dL 0.57-1.25 pshi=512) GLUCOSE RANDOM (BEAKER) 154 mg/dL 70-105 (test msri=257) CALCIUM (BEAKER) (test 8.5 mg/dL 8.4-10.2 lnan=730) EGFR (BEAKER) (test 41 mL/min/1.73 sq m ESTIMATED GFR IS NOT tzen=2638) ACCURATE CREATININE CLEARANCE IN PREDICTING GLOMERULAR FILTRATION RATE. ESTIMATED GFR IS NOT APPLICABLE FOR DIALYSIS PATIENTS. HEMOGLOBIN AND [id number] 00:16:00 Test Item Value Reference Range Comments HEMOGLOBIN (BEAKER) (test hgbw=873) 13.7 GM/DL 13.7-17.5 HEMATOCRIT (BEAKER) (test xzhl=923) 42.2 % 40.1-51.0 POCT-GLUCOSE [id number] 23:55:00 Test Item Value Reference Range Comments POC-GLUCOSE METER (BEAKER) 164 mg/dL 70-110 TESTED AT [facility] [address] [facility] (test ddif=8238) [facility] [address] TROPONIN [id number] 18:42:00 Test Item Value Reference Range Comments TROPONIN I (BEAKER) (test qkqv=730) 0.10 ng/mL 0.00-0.03 Effective 10/10/2014: Reference Range ChangeNew: 0.00-0.03 Previous 0.00- 0.15Troponin I (TnI) levels must be interpreted in the context of the presenting symptoms and the clinical findings. Elevated TnI levels indicate myocardial damage, but are not specific for ischemic heart disease. Elevated TnI levels are seen in patients with other cardiac conditions (including myocarditis and congestive heartfailure), and slight TnI elevations occur in patients with other conditions, including sepsis, renalfailure, acidosis, acute neurological disease, and persistent tachyarrhythmia.B-TYPE NATRIURETIC FACTOR ( BNP)2017-06-17 18:41:00 Test Item Value Reference Range Comments B-TYPE NATRIURETIC PEPTIDE (BEAKER) (test 697 pg/mL 0-100 lzpn=551) [id number] 18:34:00 Test Item Value Reference Range Comments PHOSPHORUS (BEAKER) (test lqxj=637) 4.6 mg/dL 2.3-4.7 [id number] 18:34:00 Test Item Value Reference Range Comments MAGNESIUM (BEAKER) (test mkrb=982) 1.8 mg/dL 1.6-2.6 BASIC METABOLIC [id number] 18:34:00 Test Item Value Reference Range Comments SODIUM (BEAKER) (test 126 meq/L 136-145 glcc=949) POTASSIUM (BEAKER) (test 4.7 meq/L 3.5-5.1 ofdq=150) CHLORIDE (BEAKER) (test 97 meq/L 98-107 oyji=980) CO2 (BEAKER) (test 18 meq/L 22-29 zygc=464) BLOOD UREA NITROGEN 32 mg/dL 7-21 (BEAKER) (test ejla=948) CREATININE (BEAKER) (test 1.46 mg/dL 0.57-1.25 ampg=687) GLUCOSE RANDOM (BEAKER) 144 mg/dL 70-105 (test kfuh=134) CALCIUM (BEAKER) (test 8.4 mg/dL 8.4-10.2 ruoz=127) EGFR (BEAKER) (test 47 mL/min/1.73 sq m ESTIMATED GFR IS NOT oyuz=1196) ACCURATE CREATININE CLEARANCE IN PREDICTING GLOMERULAR FILTRATION RATE. ESTIMATED GFR IS NOT APPLICABLE FOR DIALYSIS PATIENTS. CBC (HEMOGRAM ONLY)2017-06-17 18:06:00 Test Item Value Reference Range Comments WHITE BLOOD CELL COUNT (BEAKER) (test cnil=573) 13.3 K/ L 3.5-10.5 RED BLOOD CELL COUNT (BEAKER) (test wnla=967) 4.28 M/ L 4.63-6.08 HEMOGLOBIN (BEAKER) (test blkk=430) 12.7 GM/DL 13.7-17.5 HEMATOCRIT (BEAKER) (test wsoj=927) 39.7 % 40.1-51.0 MEAN CORPUSCULAR VOLUME (BEAKER) (test mtiu=187) 92.8 fL 79.0-92.2 MEAN CORPUSCULAR HEMOGLOBIN (BEAKER) (test 29.7 pg 25.7-32.2 fzyj=976) MEAN CORPUSCULAR HEMOGLOBIN CONC (BEAKER) (test 32.0 GM/DL 32.3-36.5 fmpc=477) RED CELL DISTRIBUTION WIDTH (BEAKER) (test 14.3 % 11.6-14.4 ebmi=097) PLATELET COUNT (BEAKER) (test yxoc=545) 185 K/CU MM 150-450 MEAN PLATELET VOLUME (BEAKER) (test gwtv=047) 10.7 fL 9.4-12.4 NUCLEATED RED BLOOD CELLS (BEAKER) (test 0 /100 WBC 0-0 vbzd=125) BASIC METABOLIC [id number] 12:13:00 Test Item Value Reference Range Comments SODIUM (BEAKER) (test 132 meq/L 136-145 pqsa=043) POTASSIUM (BEAKER) (test 4.6 meq/L 3.5-5.1 cqsn=110) CHLORIDE (BEAKER) (test 102 meq/L 98-107 mmsw=449) CO2 (BEAKER) (test 22 meq/L 22-29 axve=432) BLOOD UREA NITROGEN 30 mg/dL 7-21 (BEAKER) (test tmnq=065) CREATININE (BEAKER) (test 1.43 mg/dL 0.57-1.25 njnu=998) GLUCOSE RANDOM (BEAKER) 103 mg/dL 70-105 (test lwqk=172) CALCIUM (BEAKER) (test 8.5 mg/dL 8.4-10.2 htzg=888) EGFR (BEAKER) (test 48 mL/min/1.73 sq m ESTIMATED GFR IS NOT hqyw=5778) ACCURATE CREATININE CLEARANCE IN PREDICTING GLOMERULAR FILTRATION RATE. ESTIMATED GFR IS NOT APPLICABLE FOR DIALYSIS PATIENTS. HEMOGLOBIN AND [id number] 11:54:00 Test Item Value Reference Range Comments HEMOGLOBIN (BEAKER) (test spvn=464) 12.5 GM/DL 13.7-17.5 HEMATOCRIT (BEAKER) (test dbfo=705) 39.0 % 40.1-51.0 [id number] 17:57:00 Test Item Value Reference Range Comments MAGNESIUM (BEAKER) (test 1.9 mg/dL 1.6-2.6 Specimen slightly hemolyzed vics=679) [id number] 17:57:00 Test Item Value Reference Range Comments PHOSPHORUS (BEAKER) (test 4.7 mg/dL 2.3-4.7 Specimen slightly hemolyzed ltse=564) BASIC METABOLIC [id number] 17:57:00 Test Item Value Reference Range Comments SODIUM (BEAKER) (test 137 meq/L 136-145 oxua=210) POTASSIUM (BEAKER) (test 5.1 meq/L 3.5-5.1 Specimen slightly yjgq=582) hemolyzed CHLORIDE (BEAKER) (test 109 meq/L 98-107 emwj=084) CO2 (BEAKER) (test 19 meq/L 22-29 spat=966) BLOOD UREA NITROGEN 25 mg/dL 7-21 (BEAKER) (test rhiz=621) CREATININE (BEAKER) (test 1.08 mg/dL 0.57-1.25 Specimen slightly gukx=459) hemolyzed GLUCOSE RANDOM (BEAKER) 130 mg/dL 70-105 (test bfey=691) CALCIUM (BEAKER) (test 8.8 mg/dL 8.4-10.2 qnbs=790) EGFR (BEAKER) (test 67 mL/min/1.73 sq m ESTIMATED GFR IS NOT fagi=0574) ACCURATE CREATININE CLEARANCE IN PREDICTING GLOMERULAR FILTRATION RATE. ESTIMATED GFR IS NOT APPLICABLE FOR DIALYSIS PATIENTS. BASIC METABOLIC [id number] 15:00:00 Test Item Value Reference Range Comments SODIUM (BEAKER) (test 137 meq/L 136-145 clnl=771) POTASSIUM (BEAKER) (test 4.9 meq/L 3.5-5.1 mtia=508) CHLORIDE (BEAKER) (test 109 meq/L 98-107 idlw=245) CO2 (BEAKER) (test 21 meq/L 22-29 ylyg=608) BLOOD UREA NITROGEN 24 mg/dL 7-21 (BEAKER) (test fiwp=775) CREATININE (BEAKER) (test 1.13 mg/dL 0.57-1.25 wkbs=655) GLUCOSE RANDOM (BEAKER) 141 mg/dL 70-105 (test wfyl=594) CALCIUM (BEAKER) (test 9.0 mg/dL 8.4-10.2 matv=432) EGFR (BEAKER) (test 63 mL/min/1.73 sq m ESTIMATED GFR IS NOT swoj=4080) ACCURATE CREATININE CLEARANCE IN PREDICTING GLOMERULAR FILTRATION RATE. ESTIMATED GFR IS NOT APPLICABLE FOR DIALYSIS PATIENTS. HEMOGLOBIN AND [id number] 14:18:00 Test Item Value Reference Range Comments HEMOGLOBIN (BEAKER) (test fhfk=413) 13.3 GM/DL 13.7-17.5 HEMATOCRIT (BEAKER) (test epze=815) 41.1 % 40.1-51.0 [id number] 12:37:00 Test Item Value Reference Range Comments SODIUM (BEAKER) (test zfvb=453) 138 meq/L 136-145 POTASSIUM (BEAKER) (test vttw=352) 4.3 meq/L 3.5-5.1 CHLORIDE (BEAKER) (test mewt=252) 104 meq/L 98-107 CO2 (BEAKER) (test ggft=436) 25 meq/L 22-29 [id number] 12:37:00 Test Item Value Reference Range Comments GLUCOSE RANDOM (BEAKER) (test gdbz=946) 87 mg/dL 70-105 Effective 10/10/2014: Reference Range Change-Adult onlyNew: 70-105 Previous : 70-110BUN AND [id number] 12:37:00 Test Item Value Reference Range Comments BLOOD UREA NITROGEN 20 mg/dL 7-21 (BEAKER) (test xxih=963) CREATININE (BEAKER) (test 1.10 mg/dL 0.57-1.25 yvks=270) EGFR (BEAKER) (test 65 mL/min/1.73 sq m ESTIMATED GFR IS NOT atfu=3455) ACCURATE CREATININE CLEARANCE IN PREDICTING GLOMERULAR FILTRATION RATE. ESTIMATED GFR IS NOT APPLICABLE FOR DIALYSIS PATIENTS. CBC W/PLT COUNT & AUTO [id number] 12:24:00 Test Item Value Reference Range Comments WHITE BLOOD CELL COUNT (BEAKER) (test cqeb=662) 6.8 K/ L 4.0-10.0 RED BLOOD CELL COUNT (BEAKER) (test jsck=510) 4.62 M/ L 4.20-5.80 HEMOGLOBIN (BEAKER) (test nivn=989) 14.7 GM/DL 13.0-16.8 HEMATOCRIT (BEAKER) (test zozn=498) 43.1 % 40.0-50.0 MEAN CORPUSCULAR VOLUME (BEAKER) (test iwkp=805) 93.2 fL 82.0-98.0 MEAN CORPUSCULAR HEMOGLOBIN (BEAKER) (test 31.8 pg 27.0-33.0 pshj=163) MEAN CORPUSCULAR HEMOGLOBIN CONC (BEAKER) (test 34.1 GM/DL 32.0-36.0 vrja=444) RED CELL DISTRIBUTION WIDTH (BEAKER) (test 13.1 % 10.3-14.2 tgxe=092) PLATELET COUNT (BEAKER) (test dxsg=446) 179 K/CU MM 150-430 MEAN PLATELET VOLUME (BEAKER) (test occm=946) 7.2 fL 6.5-10.5 NUCLEATED RED BLOOD CELLS (BEAKER) (test 0 /100 WBC 0-0 kern=337) NEUTROPHILS RELATIVE PERCENT (BEAKER) (test 67 % ttdg=172) LYMPHOCYTES RELATIVE PERCENT (BEAKER) (test 23 % jvrg=178) MONOCYTES RELATIVE PERCENT (BEAKER) (test 7 % awhp=761) EOSINOPHILS RELATIVE PERCENT (BEAKER) (test 2 % ktbv=458) BASOPHILS RELATIVE PERCENT (BEAKER) (test 1 % rjrf=995) NEUTROPHILS ABSOLUTE COUNT (BEAKER) (test 4.56 K/ L 1.80-8.00 qcur=068) LYMPHOCYTES ABSOLUTE COUNT (BEAKER) (test 1.59 K/ L 1.48-4.50 qyxe=510) MONOCYTES ABSOLUTE COUNT (BEAKER) (test 0.47 K/ L 0.00-1.30 touc=449) EOSINOPHILS ABSOLUTE COUNT (BEAKER) (test 0.17 K/ L 0.00-0.50 wonn=488) BASOPHILS ABSOLUTE COUNT (BEAKER) (test 0.05 K/ L 0.00-0.20 lriz=071) 0.00
[2018-03-18] MEDS ORDERED: Ringers Lactate 1,000 ML IV ONE (09:17)
[2018-03-18 09:32] VITALS: TEMP 97.8
[2018-03-18] MEDS ORDERED: LIDOCAINE 1% MPF 5 ML VIAL ONE (10:42)
[2018-03-18] MEDS ORDERED: PROPOFOL 200 MG/20 ML VIAL IV ONE (10:42)
--- NOTE | 2018-03-18 11:20 | ENDO RPT ---
[address], [address] EGD PROCEDURE REPORT EXAM DATE: 03/18/2018 PATIENT NAME: Samir Orourke MR#: [id number] BIRTHDATE: 1940 ATTENDING: Samir Denny Dr STATUS: outpatient CPS TEAM LEAD: Arely Banerjee, Tisha Dailey RN, and Arpita Mcguire RN INDICATIONS: The patient is a 78 yr old Male here for an EGD due to mid epigastric abdominal pain, nausea and vomiting, bloating, belching, and weight loss PROCEDURE PERFORMED: EGD with biopsy MEDICATIONS: Per Anesthesia. TOPICAL ANESTHETIC: none CONSENT: The patient understands the risks and benefits of the procedure and understands that these risks include, but are not limited to: sedation, allergic reaction, infection, perforation and/or bleeding. Alternative means of evaluation and treatment include, among others: physical exam, x-rays, and/or surgical intervention. The patient elects to proceed with this endoscopic procedure. DESCRIPTION OF PROCEDURE: During intra-op preparation period all mechanical medical equipment was checked for proper function. Hand hygiene and appropriate measures for infection prevention was taken. Procedure, possible complications, and alternatives including but not limited to the possibility of bleeding, perforation, tear, infection, sepsis, need for surgery, need for blood transfusion, and anesthesia related complications were explained to the patient. After the risks, benefits and alternatives of the procedure were thoroughly explained, Informed consent was verified, confirmed and timeout was successfully executed by the treatment team. The patient was placed in the left lateral position. The patient was anesthetized with topical anesthesia. Through the anesthetized oropharyngeal area, the scope was passed without any difficulty. The [id number] ([id number]) endoscope was introduced through the mouth and advanced to the bulb of duodenum. Retroflexed views revealed a small hiatal hernia. The gastroscope was then slowly withdrawn and removed. Non-erosive esophagitis was found in the mid esophagus. A small hiatal hernia was found. 2 mm clean-based ulcer was found in the antrum. Multiple (2) erosions were found in the antrum. Multiple biopsies were obtained and sent to the bulb of the duodenum. ADVERSE EVENTS: There were no complications. IMPRESSIONS: 1. Non-erosive esophagitis in the mid to distal esophagus 2. Small hiatal hernia 3. 2 mm clean-based ulcer in the antrum 4. Multiple (2) erosions in the antrum duodenum RECOMMENDATIONS: REPEAT EXAM: Samir Denny Dr eSigned: Samir Denny Dr 03/18/2018 11:19 AM cc: CPT CODES: ICD9 CODES: PATIENT NAME: Samir Orourke MR#: [id number]
--- NOTE | 2018-03-18 11:27 | ENDO RPT ---
[address], [address] EGD PROCEDURE REPORT EXAM DATE: 03/18/2018 PATIENT NAME: Samir Orourke MR#: [id number] BIRTHDATE: 1940 ATTENDING: Samir Denny Dr STATUS: outpatient INSULATION CUPOLA CHARGER: Arely Banerjee, Tisha Dailey RN, and Arpita Mcguire RN INDICATIONS: The patient is a 78 yr old Male here for an EGD due to mid epigastric abdominal pain, nausea and vomiting, bloating, belching, and weight loss PROCEDURE PERFORMED: EGD with biopsy MEDICATIONS: Per Anesthesia. TOPICAL ANESTHETIC: none CONSENT: The patient understands the risks and benefits of the procedure and understands that these risks include, but are not limited to: sedation, allergic reaction, infection, perforation and/or bleeding. Alternative means of evaluation and treatment include, among others: physical exam, x-rays, and/or surgical intervention. The patient elects to proceed with this endoscopic procedure. DESCRIPTION OF PROCEDURE: During intra-op preparation period all mechanical medical equipment was checked for proper function. Hand hygiene and appropriate measures for infection prevention was taken. Procedure, possible complications, and alternatives including but not limited to the possibility of bleeding, perforation, tear, infection, sepsis, need for surgery, need for blood transfusion, and anesthesia related complications were explained to the patient. After the risks, benefits and alternatives of the procedure were thoroughly explained, Informed consent was verified, confirmed and timeout was successfully executed by the treatment team. The patient was placed in the left lateral position. The patient was anesthetized with topical anesthesia. Through the anesthetized oropharyngeal area, the scope was passed without any difficulty. The [id number] ([id number]) endoscope was introduced through the mouth and advanced to the bulb of duodenum. Retroflexed views revealed a small hiatal hernia. The gastroscope was then slowly withdrawn and removed. Non-erosive esophagitis was found in the mid esophagus. A small hiatal hernia was found. 2 mm clean-based ulcer was found in the antrum. Multiple (2) erosions were found in the antrum. Multiple biopsies were obtained and sent to the bulb of the duodenum. ADVERSE EVENTS: There were no complications. IMPRESSIONS: 1. Non-erosive esophagitis in the mid to distal esophagus 2. Small hiatal hernia 3. 2 mm clean-based ulcer in the antrum 4. Multiple (2) erosions in the antrum duodenum RECOMMENDATIONS: 1. await biopsy results 2. acid suppression therapy 3. CT abdomen 4. consider endoscopic ultrasound REPEAT EXAM: Return in 3 month(s) for EGD. Samir Denny Dr eSigned: Samir Denny Dr 03/18/2018 11:27 AM Revised: 03/18/2018 11:27 AM cc: Camden Bello CPT CODES: ICD9 CODES: PATIENT NAME: Samir OrourkeJv MR#: [id number]
[2018-03-18 11:42] VITALS: BP 115/87; O2SAT 100
[2018-03-18 11:57] LABS: Absolute Lymphocytes (CBC) 1.6 K/uL (0.7-4.9); Absolute Monocytes 0.7 K/uL (0.1-1.3); Absolute Neutrophil 6.5 K/uL (1.8-8.0); Basophils % 0.9 % (0-1.3); Eosinophils % 1.1 % (0-4.4); Hematocrit 36.8 % (39.6-49.0); Lymphocytes % 17.6 % (15.3-44.8); MCH 27.2 pg (27.0-35.0); MPV 8.3 fL (7.6-11.3); Monocytes % 8.1 % (3.3-12.3); RBC Red Blood Cell Count 4.38 M/uL (4.33-5.43)
[2018-03-18 12:09] LABS: Potassium 3.8 mEq/L (3.6-5.0)
--- NOTE | 2018-03-18 12:53 | RAD REPORT ---
EXAM DESCRIPTION: CT - Abdomen W Contrast CLINICAL HISTORY: Abdominal pain COMPARISON: 07/28/[address] scans are performed using dose optimization technique as appropriate and may includ e automated exposure control or mA/KV adjustment according to patient size. FINDINGS: Mild linear subsegmental atelectasis is seen in both posterior lung bases. The heart is mi ldly prominent size with pacemaker wires present. Mild fatty liver is seen. Subtle nodular contour of the liver could indicate early/ mild cirrhosis. T race fluid is seen along the inferior right hepatic edge. The spleen, pancreas and adrenal glands are normal. Aortoiliac atherosclerosis. No free fluid, bowel obstruction or free air. No significant adenopathy in the abdomen. No significant bony finding. IMPRESSION: No acute intra-abdominal process is identified. Trace fluid is seen along the right inferior hepatic edge. Early/very mild findings of cirrhosis suggested.
[2018-03-18 15:50] LABS: Ferritin 25.2 ng/ml (23.9-336.2)
== END 2018-03-18 13:20 | disposition home or self-care (01) ==
LOC: OR 08:44
PROVIDERS: ATTEND Internal Medicine Gastroenterology
PROC: 0DB68ZX Excision of Stomach, Via Natural or Artificial Opening Endoscopic, Diagnostic (ICD-10-PCS; principal; 2018-03-18 11:15)
DX: K25.9 Gastric ulcer, unspecified as acute or chronic, without hemorrhage or perforation (principal); K20.9 Esophagitis, unspecified; K44.9 Diaphragmatic hernia without obstruction or gangrene; K29.50 Unspecified chronic gastritis without bleeding; F41.9 Anxiety disorder, unspecified; I50.9 Heart failure, unspecified; F32.9 Major depressive disorder, single episode, unspecified
CPT/HCPCS: 36415; 74160; 80048; 82728; 83540; 84466; 85025; 88305; 88312

== ENCOUNTER 2018-04-14 07:34 | Day surgery (SDC) | payer OTHER ==
--- OUTSIDE RECORDS SUMMARY | 2018-04-14 07:38 | XMS REPORT | Clinical Summary ---
:1940 Author Organization [facility] Address [address] [place] [address] Care Team Providers Name Role Phone Asked, [...] MD 03/08/2018 Office Visit Orthopedic Surgery Jaun, [facility] localized osteoarthrosis of shoulder region, unspecified laterality (Primary Dx); Pramod Sanchez MD Acute pain of both shoulders; History of total right hip replacement 06/05/2017 Anesthesia Event Cardiology Suzanne Montgomery CRNA 06/05/2017 Procedure Pass Procedural Cardiology 06/05/2017 Surgery Procedural Fernando, Nadim Ep cardioversion w erica Alexis Mary MD [71738 (CPT)] 06/03/2017 Procedure Pass Procedural Cardiology 06/03/2017 Surgery Procedural Fernando, Nadim Ep ppi generator Alexis Mary MD insertion dual [58479 (CPT)] 06/02/2017 - Hospital Encounter Cardiology Justyn Disla Atrial fibrillation, 06/08/2017 MD Val unspecified type after 04/13/2017 Social History Tobacco Use Types Packs/Day Years [...] INFLUENZA VACCINE 06/23/2018 Implants Implanted Type Area Interpretative Dancer Device Expiration Model / Identifier Date Serial / Lot Accolade Mri Dr Pacemaker - [id number] - [id number] Cardiac N/A: [employer] 02/16 L311 / Implanted: Qty: 1 on 06/03/2017 by Yang Saez Jr., MD Pacemaker N/A SCIENTIFIC- CRM [id number] / Generators [id number] [employer] Pacing Lead Is-1 Bipolar 59cm - [id number] - [id number] Cardiac Pacing N/A: [employer] 04/02/2019 7742 / Implanted: Qty: 1 on 06/03/2017 by Yang Saez Jr., MD Leads or N/A [employer] [id number] / Electrodes or [id number] Accessories 52cm Xactium Active Fixation Pacing Lead - [id number] Cardiac Pacing N/A : [employer] 05/09/2019 7741 / Implanted: 06/03/2017 (Quantity not on file) Leads or N/A DSTLD [id number] / Electrodes or [id number] Accessories Right Total Hip Prosthesis Procedures Procedure [...] in unspecified type the results section. after 04/13/2017 Results XR Femur 2 Vw Right (03/08/2018 3:16 PM) Specimen Performing Laboratory [place] [address] [place] [address] Narrative Well fixed and aligned THR RightRevision with allograft XR Shoulders Bilateral (03/08/2018 2:33 PM) Specimen Performing Laboratory [facility] [address] [place] [address] Narrative Mold OA changes both shoulders Estimated [...] and Americans. Specimen Performing Laboratory Plasma specimen [facility] DEPARTMENT OF PATHOLOGY AND GENOMIC MEDICINE [address] [place] [address] 23241 Basic metabolic panel (06/08/2017 4:00 AM)Only the [...] 10.2 mg/dL Specimen Performing Laboratory Plasma specimen [facility] DEPARTMENT OF PATHOLOGY AND GENOMIC MEDICINE [address] [place] [address] 53224 ECG 12 lead (06/07/2017 10:27 PM)Only the [...] wave abnormality-Prolonged QT-Abnormal ECG-- Specimen Performing Laboratory [facility] MUSE [address] [place] [address] 36996 Magnesium level (06/07/2017 4:00 AM)Only the most recent of6 resultswithin the time period is included. Component Value Ref Range Magnesium 2.0 1.6 - 2.4 mg/dL Specimen Performing Laboratory Plasma specimen [facility] DEPARTMENT OF PATHOLOGY AND [facility] [address] [place] [address] 31796 ECG Pre/Post Op-Tomorrow (06/06/2017 8:17 AM) Component Value Ref Range Ventricular rate 72 Atrial rate 72 HI interval 254 QRSD interval 94 QT interval [...] lengthened- : 33 PM Specimen Performing Laboratory [facility] MUSE [address] [place] [address] 69788 Partial thromboplastin time, activated (06/06/2017 1:52 AM)Only the most recent of4 resultswithin the time period is included. Component Value Ref Range PTT SEE COMMENT 23.0 - 36.0 sec Comment: PTT therapeutic range for unfractionated heparin is 61.0-112.0 seconds which corresponds to Anti-Xa 0.3-0.7 U/ml. Footnote--------- Unable to perform testing, specimen is MISLABLED.Recollect requested for PTT.NORMA DELEON/Chelsey notified by rankdeskEliseoLetyano at06/06/201702:37 .Credit issued. Corrected result; previously reported as 34.6 on 06/06/2017 at 02:19 by I/ AUT Specimen Performing Laboratory Blood [facility] DEPARTMENT OF PATHOLOGY AND GENOMIC MEDICINE [address] [place] [address] 30740 Echocardiogram transesophageal (06/05/2017 12:41 PM) Specimen [facility] [address] [place] [address] 51493 Narrative Transesophageal Echo Report [address], [place], [place] [address] Wall motion diagram can be located in the PACS image link Pat.Name:Lambert OROURKE.ID:[id number] .Date: 06/05/2017 Refer.MD:YANG SAEZ MD Exam Time: 11:48:00 AM Study Type:ERICA Height:73inWeight: 199.14lb BSA: 2.15 m2 DOBAge:1940,77Y Sex: MALEBP:134/64 HR:78 bpmSonogrphr: Everett Carty MD [facility]. Stat.:Inpatient Room:[facility] Study Status:Final Echo Event ID:[id number] Order ID:[id number] Reason for Study:Atrial fibrillation Procedures:Transesophageal Echo with Colorflow Doppler Race:C SUMMARY: No thrombus or mass is visualized in the LA or LA appendage. Normal global and regional left ventricular systolic function with ejection fraction estimated at 55-59%. Mild mitral regurgitation. FINDINGS: ERICA:The attending public speaking coach performed the ERICA procedure and waspresent for [...] ASA Class: 3 Physician: Corky Wasserman M.D. Director Regulatory Affairs: Everett Carty MD Pre TEEBP HR Post ERICA BP HR 134/64 08698/67 77 Meds:Viscous xylocaine, Cetacaine spray to oropharynx, Per Anesthesia Complications: None Condition: Stable Signed 06/05/2017 01:25 PM Corky Wasserman M.D. Procedure Note Interface, Radiology Results In - 06/05/2017 1:25 PM CDT Transesophageal Echo Report [id number], [place], [place] [address] Wall motion diagram can be located in the PACS image link Pat.Name: EAMON OROURKE Nova.ID: [id number] .Date: 06/05/2017 Refer.MD: YANG SAEZ MD Exam Time: 11:48:00 AM Study Type:ERICA Height: 73in Weight: 199.14lb BSA: 2.15 m2 Age: 4 1940,77Y Sex: MALE BP: 134/64 HR: 78 bpm Sonogrphr: Everett Carty MD Pat. Stat.:Inpatient Room: [facility] Study Status:Final Echo Event ID:[id number] Order ID: [id number] Reason for Study:Atrial fibrillation Procedures:Transesophageal Echo with Colorflow Doppler Race: C SUMMARY: No thrombus or mass is visualized in the LA or LA appendage. Normal global and regional left ventricular systolic function with ejection fraction estimated at 55-59%. Mild mitral regurgitation. FINDINGS: ERICA: The attending public speaking coach performed the ERICA procedure and was present [...] ASA Class: 3 Physician: Corky Wasserman M.D. Director Regulatory Affairs: Everett Carty MD Pre ERICA BP HR Post ERICA BP HR 134/64 78 131/67 77 Meds: Viscous xylocaine, Cetacaine spray to oropharynx, Per Anesthesia Complications: None Condition: Stable Signed 06/05/2017 01:25 PM Corky Wasserman M.D. Cv electrophysiology procedure (06/05/2017 12:26 PM) Specimen Performing Laboratory [facility] [address] [place] [address] Narrative Cardioversion Procedure Note Eamon Orourke,[id number] 77 y.o. male 06/02/2017 - 06/05/2017; [facility] CARD MAUDE 8 PROCEDURE ROOM 15 Procedure(s): [...] screen (gel) NEG Specimen Performing Laboratory Blood [facility] DEPARTMENT OF PATHOLOGY AND [facility] [address] [place] [address] 28196 Prothrombin time with INR (06/04/2017 7:05 AM)Only [...] vein thrombosis/pulmonary embolism. Specimen Performing Laboratory Blood [facility] DEPARTMENT OF PATHOLOGY AND GENOMIC MEDICINE [address] [place] [address] 61563 CBC with platelet and differential (06/04/2017 7:05 [...] (promyelocytes, myelocytes, metamyelocytes) Specimen Performing Laboratory Blood [facility] DEPARTMENT OF PATHOLOGY AND GENOMIC MEDICINE [address] [place] [address] 20213 Phosphorus level (06/04/2017 4:00 AM)Only the most recent of2 resultswithin the time period is included. Component Value Ref Range Phosphorus 3.6 2.4 - 4.5 mg/dL Specimen Performing Laboratory Plasma specimen [facility] DEPARTMENT OF PATHOLOGY AND GENOMIC MEDICINE [address] [place] [address] 39073 Hepatic function panel (06/04/2017 4:00 AM) Component Value Ref Range Albumin 3.5 3.5 - 5.0 g/dL Total bilirubin 0.9 0.0 - 1.2 mg/dL Bilirubin direct <0.2 0.0 - 0.3 mg/dL Alkaline phosphatase 61 40 - 129 U/L Protein 6.7 6.3 - 8.3 g/dL Comment: [place] 4.6-7.0 g/dL 1 week 4.4-7.6 g/dL 7 months-1year5.1-7.3 g/dL 1-2 years5.6-7.5 g/dL >3 years6.0-8.0 g/dL 18-150 6.3-8.3 g/dL ALT 23 5 - 50 U/L AST 27 10 - 50 U/L Specimen Performing Laboratory Plasma specimen [facility] DEPARTMENT OF PATHOLOGY AND GENOMIC MEDICINE [address] [place] [address] XR Chest 1 Vw Portable (06/03/2017 3:55 PM) Specimen Performing Laboratory [facility] [address] [place] [address] Narrative EXAMINATION:XR CHEST 1 VW PORTABLE CLINICAL HISTORY:Pneumothorax COMPARISON:October 05, 2002 IMPRESSION: Change midline sternotomy noted.There is a transvenous pacemaker in the left axillary fold. There is moderate cardiomegaly.Pulmonary vessels are congested and there is patchy bilateral infiltrate compatible with early pulmonary edema. [id number] Procedure Note Interface, Radiology Results Incoming - 06/03/2017 4:01 PM CDT EXAMINATION: XR CHEST 1 VW PORTABLE CLINICAL HISTORY: Pneumothorax COMPARISON: October 05, 2002 IMPRESSION: Change midline sternotomy noted. There is a transvenous pacemaker in the left axillary fold. There is moderate cardiomegaly. Pulmonary vessels are congested and there is patchy bilateral infiltrate compatible with early pulmonary edema. [id number] Cv electrophysiology procedure (06/03/2017 2:38 PM) Specimen Performing Laboratory [facility] [address] [place] [address] Narrative Pacemaker Implant Operative Note Eamon Orourke,[id number] 77 y.o. male 06/02/2017 - 06/03/2017; [facility] CATHLAB8 Procedure(s): Ep ppi generator insertion dual [...] Implant Name Type Inv. Item Serial No. Interpretative Dancer Lot No. LRB No. Used Action INGEVITY MRI PACING LEAD IS-1 BIPOLAR 59CM - [id number] Cardiac Pacing Leads or Electrodes or Accessories INGEVITY MRI PACING LEAD IS-1 BIPOLAR 59CM [id number] [employer]- [facility] [id number] N/A 1 Implanted 52CM INGEVITY MRI ACTIVE FIXATION PACING LEAD - [id number] Cardiac Pacing Leads or Electrodes or Accessories 52CM INGEVITY MRI ACTIVE FIXATION PACING LEAD [id number] [employer]- [facility] 033158 N/A 1 Implanted ACCOLADE MRI PACEMAKER - [id number] Cardiac Pacemaker Generators ACCOLADE MRI DR PACEMAKER [id number] [employer]- [facility] 028978 N/A 1 Implanted Yang Saez Jr., MD Date: 06/03/2017Time: 2:24 PM B natriuretic peptide (06/03/2017 3:15 AM)Only the most recent of2 resultswithin the time period is included. Component Value Ref Range BNP 546 (H) 0 - 100 pg/mL Specimen Performing Laboratory Blood [facility] DEPARTMENT OF PATHOLOGY AND GENOMIC MEDICINE [address] [place] [address] 48000 Urinalysis screen and microscopy, with reflex to [...] UA None seen Specimen Performing Laboratory Urine [facility] DEPARTMENT OF PATHOLOGY AND GENOMIC MEDICINE [address] [place] [address] 21333 Urine culture (06/02/2017 9:35 PM) Component Value Ref Range Urine culture SEE COMMENTComment: Bacteriuria screen negative. Specimen Performing Laboratory [facility] DEPARTMENT OF PATHOLOGY AND GENOMIC MEDICINE [address] [place] [address] 32293 Thyroid stimulating hormone (06/02/2017 6:30 PM) Component Value Ref Range TSH 1.80 0.27 - 4.20 uIU/mL Specimen Performing Laboratory Plasma specimen [facility] DEPARTMENT OF PATHOLOGY AND GENOMIC MEDICINE [address] [place] [address] 95435 Prealbumin level (06/02/2017 6:30 PM) Component Value Ref Range Prealbumin 20 16 - 32 mg/dL Specimen Performing Laboratory Serum [facility] DEPARTMENT OF PATHOLOGY AND GENOMIC MEDICINE [address] [place] [address] 87489 Comprehensive metabolic panel (06/02/2017 6:30 PM) Component [...] Protein 6.3 6.3 - 8.3 g/dL Comment: [place] 4.6-7.0 g/dL 1 week 4.4-7.6 g/dL 7 months-1year5.1-7.3 g/dL 1-2 years5.6-7.5 g/dL >3 years6.0-8.0 g/dL 18-150 6.3-8.3 g/dL Albumin 3.6 3.5 - 5.0 g/dL A/G ratio 1.3 0.7 - 3.8 Alkaline phosphatase 62 40 - 129 U/L AST 29 10 - 50 U/L ALT 22 5 - 50 U/L Total bilirubin 0.7 0.0 - 1.2 mg/dL Specimen Performing Laboratory Plasma specimen [facility] DEPARTMENT OF PATHOLOGY AND GENOMIC MEDICINE [address] [place] [address] 85935 after 04/13/2017 Insurance Payer Benefit Plan / Group Subscriber ID Type Phone Address MEDICARE MEDICARE PART A AND B xxxxxxxxxx Medicare [facility] xxxxxxxxxx Indemnity INDEMNITY [employer] MED SUPP xxxxxxxxx Commercial Home: [address] [facility] [phone] [address]
--- OUTSIDE RECORDS SUMMARY | 2018-04-14 07:39 | XMS REPORT | Clinical Summary ---
:1940 [facility] Address [address] [place] [address] Phone Care Team Providers Name Role Phone [...] 06/12/2017 Orders Only General Internal Medicine after 04/13/2017 Social History Tobacco Use Types [...] with urinary obstruction Special Needs (TECH) after 04/13/2017 Results RHYTHM STRIP - SCAN (06/24/2017 1:51 PM)Calcium, Ionized (06/23/2017 4:49 AM) Only the most recent of4 resultswithin the time period is included. Component Value Ref Range Calcium, Ion 1.00 (L) 1.12 - 1.27 mmol/L pH, Blood 7.38 Specimen Performing Laboratory Blood [facility] [address] [address] CBC with platelet count + automated diff [...] - 1 % Specimen Performing Laboratory Blood [address] [address] CBC with platelet count + automated diff (06/23/2017 4:49 AM)Only the most recent of5 resultswithin the time period is included. Specimen Performing Laboratory Blood Narrative The following orders were created for panel order CBC with platelet count + automated diff. Procedure Abnormality Status --------- ------ CBC with platelet count ...[[id number]]AbnormalFinal result Please view results for these tests on the individual orders. Phosphorus (06/23/2017 4:49 AM)Only the most recent of8 resultswithin the time period is included. Component Value Ref Range Phosphorus 4.1 2.3 - 4.7 mg/dL Specimen Performing Laboratory Blood [address] [address] B-type Natriuretic Factor (BNP) (06/23/2017 4:49 AM)Only the most recent of3 resultswithin the time period is included. Component Value Ref Range BNP 2170 (H) 0 - 100 pg/mL Specimen Performing Laboratory Blood [address] [address] Magnesium (06/23/2017 4:49 AM)Only the most recent of8 resultswithin the time period is included. Component Value Ref Range Magnesium 1.7 1.6 - 2.6 mg/dL Specimen Performing Laboratory Blood [address] [address] Basic Metabolic Panel (06/23/2017 4:49 AM)Only the [...] DIALYSIS PATIENTS. Specimen Performing Laboratory Blood [facility] [address] [address] 2D Echo W/Doppler(CW/PW/Color) (06/22/2017 5:01 PM) Component Value Ref Range Ejection Fraction LV EF BP 30.7 % Specimen Performing Laboratory DIGISONICS Narrative Echocardiography Laboratory [address] [place] [address] Voice:[phone] Transthoracic Echocardiogram Pat.Name:EAMON OROURKE Pat.ID:[id number] .Date: 06/22/2017 Refer.MD:ARTUR LEAL Exam Time: 5:01:00 PMStudy Type:Echo Complete Height:73inWeight: 216lb BSA: 2.23 m2 DOBAge:1940,77Y Sex: MALEBP:131/80 HR:71 bpmSonogrphr: Shanta Saleh RDCS Pat. Stat.:Inpatient Room:[facility] Reason for Study:Evaluate Ejection Fraction History / Clinical:Atrial fibrillation/flutter Procedures:2D ECHO W/ DOPPLER (CW/PW/COLOR), 2D, M-mode, Doppler, Color Flow SUMMARY: Global LV systolic function is seotitck-na-vsqwqvjb reduced. Yiibpswr-we-szfflu concentric LV hypertrophy. The following segment(s) appear [...] (1.5- 1.6 cm).Global LV systolic function is wqolgujz-gb-ccjehzlp reduced.Left ventricular chamber size (by vol index) is normal(male - LVED vol - 34-74 ml/m2). LVEF by quantitativeassessment is tsuhwgks-ju-xdponcgb reduced (30%).Igvmxqxh-ne-vkjcfm concentric LV hypertrophy. The followingsegment(s) appear akinetic: [...] cm2(8.8-23.4)* Aorta Ao Rtd3.61 cm Parasternal Long [place] Ao An 2.29 cm (1.4-2.6) LV%fs 25.7 [...] 06/23/2017 10:13 AM CDT Echocardiography Laboratory [address] [place] [address] Voice: [phone] Transthoracic Echocardiogram Pat.Name: EAMON OROURKE Pat.ID: [id number] .Date: 06/22/2017 Refer.MD: ARTUR LEAL Exam Time: 5:01:00 PM Study Type:Echo Complete Height: 73in Weight: 216lb BSA: 2.23 m2 Age: 6 1940,77Y Sex: MALE BP: 131/80 HR: 71 bpm Sonogrphr: Shanta Saleh RDCS Pat. Stat.:Inpatient Room: [facility] Reason for Study:Evaluate Ejection Fraction History / Clinical:Atrial fibrillation/flutter Procedures:2D ECHO W/ DOPPLER (CW/PW/COLOR), 2D, M-mode, Doppler, Color Flow SUMMARY: Global LV systolic function is vcmygjck-kh-qudxcmgx reduced. Bxnkmleq-en-qduqrd concentric LV hypertrophy. The following segment(s) appear [...] (1.5-1.6 cm). Global LV systolic function is yxumiiyg-cx-xxluekog reduced. Left ventricular chamber size (by vol index) is normal (male - LVED vol - 34-74 ml/m2). LVEF by quantitative assessment is rpbkaumn-bw-hkvhjnsb reduced (30%). Jduhhjjq-au-gbkimv concentric LV hypertrophy. The following segment(s) appear [...] Aorta Ao Rtd 3.61 cm Parasternal Long [place] Ao An 2.29 cm (1.4-2.6) LV%fs 25.7 [...] Ref Range POC-Glucose Meter 108Comment: TESTED AT [address] 70 - 110 mg/dL [address] Specimen Performing Laboratory Blood [facility] [address] [address] Comprehensive metabolic panel (06/22/2017 2:16 AM)Only the [...] DIALYSIS PATIENTS. Specimen Performing Laboratory Blood [facility] [address] [address] XR chest 2 views (06/21/2017 7:53 PM) Specimen Performing Laboratory GE RIS Narrative FINAL REPORT Comparison exam: 06/20/2017 Small left pleural effusion, unchanged. Blunting of the right costophrenic angle. Cardiomegaly. Normal mediastinal contours. Left subclavian approach dual chamber pacemaker. Previous sternotomy. Normal skeleton and soft tissues. Signed: Petr Ponce MD Report Verified Date/Time:06/21/2017 20:34:15 Reading Location: [address] Ortho Consult Reading Room Procedure Note Interface, External Ris In - 06/21/2017 8:36 PM CDT FINAL REPORT Comparison exam: 06/20/2017 Small left pleural effusion, unchanged. Blunting of the right costophrenic angle. Cardiomegaly. Normal mediastinal contours. Left subclavian approach dual chamber pacemaker. Previous sternotomy. Normal skeleton and soft tissues. Signed: Petr Ponce MD Report Verified Date/Time: 06/21/2017 20:34:15 Reading Location: [id number] Ortho Consult Reading Room abdomen limited (06/21/2017 [...] MD Report Verified Date/Time:06/21/2017 16:57:39 Reading Location: [address] Body Reading Room Procedure Note [...] Report Verified Date/Time: 06/21/2017 16:57:39 Reading Location: [address] Body Reading Room Hepatitis C antibody (06/21/2017 1:21 PM) Component Value Ref Range Hepatitis C Ab Nonreactive Nonreactive Specimen Performing Laboratory Blood [address] [address] Hepatitis B core antibody, IgM (06/21/2017 1:21 PM) Component Value Ref Range Hep B C IgM Nonreactive Nonreactive Specimen Performing Laboratory Blood [address] [address] Hepatitis B surface antibody (06/21/2017 1:21 PM) Component Value Ref Range Hep B S Ab <8.0 <8.0 mIU/mL Specimen Performing Laboratory Blood [address] [address] Hepatitis B surface antigen (06/21/2017 1:21 PM) Component Value Ref Range hepatitis B Surface Ag Nonreactive Nonreactive Specimen Performing Laboratory Blood [address] [address] Blood gas, venous (06/21/2017 1:21 PM) Component [...] FIO2 21.0 % Specimen Performing Laboratory Blood [address] [address] [address] brain without IV contrast (06/20/2017 5:33 PM) Specimen Performing Laboratory GE RIS Narrative FINAL REPORT CLINICAL HISTORY: Confusion [...] MD Report Verified Date/Time:06/20/2017 18:10:41 Reading Location: [address] Reading Room Procedure Note Interface, External [...] Report Verified Date/Time: 06/20/2017 18:10:41 Reading Location: [address] Reading Room Ammonia (06/20/2017 2:33 PM) Component Value Ref Range Ammonia 44 18 - 72 mol/L Specimen Performing Laboratory Blood [address] [address] Hepatic function panel (06/20/2017 2:33 PM) Component [...] - 55 U/L Specimen Performing Laboratory Blood [address] [address] XR chest 1 view portable / bedside [...] MD Report Verified Date/Time:06/20/2017 09:18:33 Reading Location: [address] Transitional Reading Room Procedure Note Interface, [...] Report Verified Date/Time: 06/20/2017 09:18:33 Reading Location: [address] Transitional Reading Room Uric acid (06/19/2017 7:34 AM) Component Value Ref Range Uric Acid 8.9 (H) 2.6 - 7.2 mg/dL Specimen Performing Laboratory Blood - Arm, [address] [address] Creatine Kinase (CK) (06/19/2017 7:34 AM) Component Value Ref Range Total CK 739 (H) 29 - 200 U/L Specimen Performing Laboratory Blood - Arm, [address] [address] TSH/Free T4 If Indicated (06/19/2017 4:55 AM) Component Value Ref Range TSH 1.66 0.35 - 4.94 uIU/mL Specimen Performing Laboratory Blood [address] [address] Cortisol (06/18/2017 6:50 PM) Component Value Ref Range Cortisol, Total 17.4 3.7 - 19.4 ug/dL Specimen Performing Laboratory Blood - Arm, [address] [address] Electrolytes (06/18/2017 6:50 PM)Only the most recent of2 resultswithin the time period is included. Component Value Ref Range Sodium 128 (L) 136 - 145 meq/L Potassium 4.9 3.5 - 5.1 meq/L Chloride 100 98 - 107 meq/L CO2 18 (L) 22 - 29 meq/L Specimen Performing Laboratory Blood - Arm, [address] [address] Narrative Call [phone] Sodium, random urine (06/18/2017 10:40 AM)Only the most recent of2 resultswithin the time period is included. Component Value Ref Range Sodium Urine 27 meq/L Specimen Performing Laboratory Urine - Urine, [address] [address] Narrative Reference Range: No Normals Protein, random urine (06/18/2017 10:40 AM) Component Value Ref Range Protein, Urine 231 (H) 0 - 14 mg/dL Specimen Performing Laboratory Urine - Urine, [address] [address] Osmolality, urine (06/18/2017 10:40 AM)Only the most recent of2 resultswithin the time period is included. Component Value Ref Range Osmolality, Ur 677 40 - 1400 mOsm/kg Specimen Performing Laboratory Urine - Urine, [address] [address] Creatinine, random urine (06/18/2017 10:40 AM)Only the most recent of2 resultswithin the time period is included. Component Value Ref Range Creatinine, Ur 139.8 mg/dL Specimen Performing Laboratory Urine - Urine, [address] [address] Narrative Reference Range: No Normals Urinalysis w/Microscopic (06/18/2017 10:40 AM) Component Value Ref Range Color, UA Yellow Clarity, UA Hazy Specific [place], UA 1.018 1.001 - 1.035 pH, UA [...] Murphy Specimen Performing Laboratory Urine - Urine, [facility] [address] [place] [address] US renal complete (06/18/2017 3:38 AM) Specimen [...] MD Report Verified Date/Time:06/18/2017 05:07:14 Reading Location: [address] Reading Room Procedure Note Interface, External [...] Report Verified Date/Time: 06/18/2017 05:07:14 Reading Location: [address] Transitional Reading Room Urinalysis w/Microscopic + Reflex to Culture (06/18/2017 1:48 AM) Component Value Ref Range Color, UA Yellow Clarity, UA Hazy Specific [place], UA 1.017 1.001 - 1.035 pH, UA [...] Source Specimen Performing Laboratory Urine - Urine, [address] [address] Urine culture (06/18/2017 1:48 AM) Component Value Ref Range Result No growth Specimen Performing Laboratory Urine - Urine, [address] [address] ECG 12 lead (06/18/2017 12:44 AM)Only the most recent of3 resultswithin the time period is included. Specimen Performing Laboratory GE MUSE Narrative Ventricular Rate 70 BPM Atrial Rate 73 BPM QRS Duration 184 ms Q-T Interval 494 ms QTC Calculation(Bazett) 533 ms R [place] 267 degrees T [place]wood 77 degrees Atrial fibrillation Electronic ventricular pacemaker When compared with ECG of 17-JUN-2017 16:53, No significant change was found Confirmed by Marcela PALMER, JOHN ([id number]) on 06/18/2017 7:20:21 AM Procedure Note Interface, External Ris In - 06/18/2017 7:20 AM CDT Ventricular Rate 70 BPM Atrial Rate 73 BPM QRS Duration 184 ms Q-T Interval 494 ms QTC Calculation(Bazett) 533 ms R [place] 267 degrees T [place] 77 degrees Atrial fibrillation Electronic ventricular pacemaker [...] - 51.0 % Specimen Performing Laboratory Blood [address] [address] Troponin I (06/18/2017 12:08 AM)Only the most recent of2 resultswithin the time period is included. Component Value Ref Range Troponin I 0.09 (H) 0.00 - 0.03 ng/mL Specimen Performing Laboratory Blood [address] [address] Narrative Effective 10/10/2014: Reference Range Change New: [...] Specimen Performing Laboratory Blood - Arm, Left [address] [address] [place] dump grader in or 30 minute increments (06/16/2017 12:33 [...] Report Verified Date/Time:06/16/2017 16:53:48 Reading Location: [address] Radiology Reading Room Procedure Note Interface, [...] Verified Date/Time: 06/16/2017 16:53:48 Reading Location: [address] Radiology Reading Room Tissue Exam (06/16/2017 12:13 PM) Component Value Ref Range Case Report Surgical Pathology Report Case: [id number] Authorizing Provider:Jacky Linares MDCollected: 06/16/2017 1213 Ordering Location: [facility] PERIOPERATIVE Received: 06/16/2017 1416 SERVICES Pathologist: Cristo Matta MD Specimen:Prostate, TURP, Prostate chips DIAGNOSIS PROSTATE, TRANS-URETHRAL RESECTION: - NODULAR HYPERPLASIA CPT Code(s) 12659 CLINICAL HISTORY BPH with urinary obstruction, hematuria [...] Specimen Performing Laboratory Tissue - Prostate, TURP [address] [address] Type and screen, automated (06/12/2017 11:28 AM) Component Value Ref Range ABO/RH AUTOMATED (BEAKER) A POSITIVE Ab Scrn NEGATIVE Specimen Performing Laboratory Blood [address] [address] BUN and Creatinine (06/12/2017 11:28 AM) Component Value Ref Range BUN 20 7 - 21 mg/dL Creatinine 1.10 0.57 - 1.25 mg/dL EGFR 65Comment: ESTIMATED GFR IS NOT ACCURATE mL/min/1.73 sq m CREATININE CLEARANCE IN PREDICTING GLOMERULAR FILTRATION RATE. ESTIMATED GFR IS NOT APPLICABLE FOR DIALYSIS PATIENTS. Specimen Performing Laboratory Blood [address] [address] Glucose (06/12/2017 11:28 AM) Component Value Ref Range Glucose 87 70 - 105 mg/dL Specimen Performing Laboratory Blood [address] [address] Narrative Effective 10/10/2014: Reference Range Change-Adult only New: 70-105 Previous: 70-110 after 04/13/2017
--- OUTSIDE RECORDS SUMMARY | 2018-04-14 07:40 | XMS REPORT ---
:1940 [facility] Address [address] [place] [address] Dr. Liu [address] [place] [id number] Care Team Providers Name Role Phone JACKY LINARES I. Unavailable Unavailable HAKAN GRANDA Unavailable Unavailable Problems This patient has no known problems. Allergies, Adverse Reactions, Alerts This patient has no known allergies or adverse reactions. Medications This patient has no known medications. Results Test Description Test Time Test Comments Text Results Atomic Results Result Comments MAGNESIUM 2017-06-23 06:53:00 Test Item Value Reference Range Comments MAGNESIUM (BEAKER) (test qhwm=678) 1.7 mg/dL 1.6-2.6 CBC W/PLT COUNT & AUTO [id number] 05:48:00 Test Item Value Reference Range Comments WHITE BLOOD CELL COUNT (BEAKER) (test ambo=461) 13.4 K/ L 3.5-10.5 RED BLOOD CELL COUNT (BEAKER) (test yijg=924) 4.60 M/ L 4.63-6.08 HEMOGLOBIN (BEAKER) (test vwle=122) 13.5 GM/DL 13.7-17.5 HEMATOCRIT (BEAKER) (test jrkk=831) 41.5 % 40.1-51.0 MEAN CORPUSCULAR VOLUME (BEAKER) (test bjzz=172) 90.2 fL 79.0-92.2 MEAN CORPUSCULAR HEMOGLOBIN (BEAKER) (test 29.3 pg 25.7-32.2 adkn=253) MEAN CORPUSCULAR HEMOGLOBIN CONC (BEAKER) (test 32.5 GM/DL 32.3-36.5 rugm=195) RED CELL DISTRIBUTION WIDTH (BEAKER) (test 14.6 % 11.6-14.4 ucdy=555) PLATELET COUNT (BEAKER) (test eaec=035) 185 K/CU MM 150-450 MEAN PLATELET VOLUME (BEAKER) (test hsez=563) 10.4 fL 9.4-12.4 NUCLEATED RED BLOOD CELLS (BEAKER) (test 0 /100 WBC 0-0 iues=770) NEUTROPHILS RELATIVE PERCENT (BEAKER) (test 67 % kygi=764) LYMPHOCYTES RELATIVE PERCENT (BEAKER) (test 20 % bogd=784) MONOCYTES RELATIVE PERCENT (BEAKER) (test 11 % algx=902) EOSINOPHILS RELATIVE PERCENT (BEAKER) (test 2 % ohnb=945) BASOPHILS RELATIVE PERCENT (BEAKER) (test 1 % ftyf=729) NEUTROPHILS ABSOLUTE COUNT (BEAKER) (test 8.95 K/ L 1.78-5.38 tylk=099) LYMPHOCYTES ABSOLUTE COUNT (BEAKER) (test 2.63 K/ L 1.32-3.57 pvex=298) MONOCYTES ABSOLUTE COUNT (BEAKER) (test 1.50 K/ L 0.30-0.82 popy=218) EOSINOPHILS ABSOLUTE COUNT (BEAKER) (test 0.20 K/ L 0.04-0.54 uoqn=850) BASOPHILS ABSOLUTE COUNT (BEAKER) (test 0.08 K/ L 0.01-0.08 xobk=473) IMMATURE GRANULOCYTES-RELATIVE PERCENT (BEAKER) 1 % 0-1 (test vlnc=2423) CALCIUM, [id number] 05:32:00 Test Item Value Reference Range Comments CALCIUM IONIZED (BEAKER) (test qahx=705) 1.00 mmol/L 1.12-1.27 PH, BLOOD (BEAKER) (test qurb=7996) 7.38 B-TYPE NATRIURETIC FACTOR (BNP)2017-06-23 05:22:00 Test Item Value Reference Range Comments B-TYPE NATRIURETIC PEPTIDE (BEAKER) (test 2170 pg/mL 0-100 nemk=307) [id number] 05:19:00 Test Item Value Reference Range Comments PHOSPHORUS (BEAKER) (test ehcy=802) 4.1 mg/dL 2.3-4.7 BASIC METABOLIC [id number] 05:19:00 Test Item Value Reference Range Comments SODIUM (BEAKER) (test 132 meq/L 136-145 jinv=952) POTASSIUM (BEAKER) (test 4.3 meq/L 3.5-5.1 hmvh=057) CHLORIDE (BEAKER) (test 102 meq/L 98-107 flww=875) CO2 (BEAKER) (test 18 meq/L 22-29 mjhc=450) BLOOD UREA NITROGEN 38 mg/dL 7-21 (BEAKER) (test oqon=512) CREATININE (BEAKER) (test 1.39 mg/dL 0.57-1.25 muok=648) GLUCOSE RANDOM (BEAKER) 101 mg/dL 70-105 (test exxn=706) CALCIUM (BEAKER) (test 8.7 mg/dL 8.4-10.2 kteg=125) EGFR (BEAKER) (test 50 mL/min/1.73 sq m ESTIMATED GFR IS NOT iyne=5959) ACCURATE CREATININE CLEARANCE IN PREDICTING GLOMERULAR FILTRATION RATE. ESTIMATED GFR IS NOT APPLICABLE FOR DIALYSIS PATIENTS. CALCIUM, [id number] 03:03:00 Test Item Value Reference Range Comments CALCIUM IONIZED (BEAKER) (test jfwg=924) 1.04 mmol/L 1.12-1.27 PH, BLOOD (BEAKER) (test zpic=9576) 7.40 [id number] 02:41:00 Test Item Value Reference Range Comments PHOSPHORUS (BEAKER) (test gemg=852) 3.9 mg/dL 2.3-4.7 [id number] 02:41:00 Test Item Value Reference Range Comments MAGNESIUM (BEAKER) (test nfxs=531) 1.6 mg/dL 1.6-2.6 COMPREHENSIVE METABOLIC [id number] 02:41:00 Test Item Value Reference Range Comments TOTAL PROTEIN (BEAKER) 6.0 gm/dL 6.0-8.3 (test lfak=943) ALBUMIN (BEAKER) (test 3.5 g/dL 3.5-5.0 joms=3197) ALKALINE PHOSPHATASE 67 U/L 40-150 (BEAKER) (test ehmu=692) BILIRUBIN TOTAL (BEAKER) 1.0 mg/dL 0.2-1.2 (test zgea=591) SODIUM (BEAKER) (test 130 meq/L 136-145 ttvr=981) POTASSIUM (BEAKER) (test 4.4 meq/L 3.5-5.1 rpea=758) CHLORIDE (BEAKER) (test 101 meq/L 98-107 pooo=736) CO2 (BEAKER) (test 17 meq/L 22-29 rlfm=291) BLOOD UREA NITROGEN 37 mg/dL 7-21 (BEAKER) (test yrxe=168) CREATININE (BEAKER) (test 1.30 mg/dL 0.57-1.25 uncz=769) GLUCOSE RANDOM (BEAKER) 102 mg/dL 70-105 (test lzzr=036) CALCIUM (BEAKER) (test 8.5 mg/dL 8.4-10.2 uopm=483) AST (SGOT) (BEAKER) (test 218 U/L 5-34 cryw=096) ALT (SGPT) (BEAKER) (test 373 U/L 6-55 lfzm=059) EGFR (BEAKER) (test 54 mL/min/1.73 sq m ESTIMATED GFR IS NOT rgqu=3818) ACCURATE CREATININE CLEARANCE IN PREDICTING GLOMERULAR FILTRATION RATE. ESTIMATED GFR IS NOT APPLICABLE FOR DIALYSIS PATIENTS. CBC W/PLT COUNT & AUTO [id number] 02:36:00 Test Item Value Reference Range Comments WHITE BLOOD CELL COUNT (BEAKER) (test rloe=812) 12.7 K/ L 3.5-10.5 RED BLOOD CELL COUNT (BEAKER) (test ovtt=429) 4.28 M/ L 4.63-6.08 HEMOGLOBIN (BEAKER) (test lyho=014) 12.8 GM/DL 13.7-17.5 HEMATOCRIT (BEAKER) (test bocm=137) 38.2 % 40.1-51.0 MEAN CORPUSCULAR VOLUME (BEAKER) (test boiy=291) 89.3 fL 79.0-92.2 MEAN CORPUSCULAR HEMOGLOBIN (BEAKER) (test 29.9 pg 25.7-32.2 stjx=544) MEAN CORPUSCULAR HEMOGLOBIN CONC (BEAKER) (test 33.5 GM/DL 32.3-36.5 phbx=712) RED CELL DISTRIBUTION WIDTH (BEAKER) (test 14.6 % 11.6-14.4 uqqj=938) PLATELET COUNT (BEAKER) (test pbfw=108) 196 K/CU MM 150-450 MEAN PLATELET VOLUME (BEAKER) (test tern=821) 10.6 fL 9.4-12.4 NUCLEATED RED BLOOD CELLS (BEAKER) (test 0 /100 WBC 0-0 vzrk=330) NEUTROPHILS RELATIVE PERCENT (BEAKER) (test 67 % yheq=166) LYMPHOCYTES RELATIVE PERCENT (BEAKER) (test 19 % znpw=905) MONOCYTES RELATIVE PERCENT (BEAKER) (test 11 % ttsq=406) EOSINOPHILS RELATIVE PERCENT (BEAKER) (test 1 % pqre=580) BASOPHILS RELATIVE PERCENT (BEAKER) (test 1 % svgm=473) NEUTROPHILS ABSOLUTE COUNT (BEAKER) (test 8.55 K/ L 1.78-5.38 kvyr=916) LYMPHOCYTES ABSOLUTE COUNT (BEAKER) (test 2.41 K/ L 1.32-3.57 bzta=879) MONOCYTES ABSOLUTE COUNT (BEAKER) (test 1.43 K/ L 0.30-0.82 bffo=733) EOSINOPHILS ABSOLUTE COUNT (BEAKER) (test 0.18 K/ L 0.04-0.54 jeqr=936) BASOPHILS ABSOLUTE COUNT (BEAKER) (test 0.06 K/ L 0.01-0.08 uewf=849) IMMATURE GRANULOCYTES-RELATIVE PERCENT (BEAKER) 0 % 0-1 (test euym=1440) POCT-GLUCOSE [id number] 02:31:00 Test Item Value Reference Range Comments POC-GLUCOSE METER (BEAKER) 108 mg/dL 70-110 TESTED AT [facility] [address] [facility] (test guxa=9736) [facility] [address] BASIC METABOLIC [id number] 17:40:00 Test Item Value Reference Range Comments SODIUM (BEAKER) (test 131 meq/L 136-145 oetn=423) POTASSIUM (BEAKER) (test 5.6 meq/L 3.5-5.1 Specimen markedly lrfb=558) hemolyzed CHLORIDE (BEAKER) (test 100 meq/L 98-107 apqq=007) CO2 (BEAKER) (test 21 meq/L 22-29 znzc=177) BLOOD UREA NITROGEN 37 mg/dL 7-21 (BEAKER) (test cmtk=044) CREATININE (BEAKER) (test 1.35 mg/dL 0.57-1.25 Specimen markedly cnxr=751) hemolyzed GLUCOSE RANDOM (BEAKER) 123 mg/dL 70-105 (test zffu=616) CALCIUM (BEAKER) (test 8.7 mg/dL 8.4-10.2 rcik=971) EGFR (BEAKER) (test 52 mL/min/1.73 sq m ESTIMATED GFR IS NOT ofps=8970) ACCURATE CREATININE CLEARANCE IN PREDICTING GLOMERULAR FILTRATION RATE. ESTIMATED GFR IS NOT APPLICABLE FOR DIALYSIS PATIENTS. HEPATITIS B SURFACE [id number] 14:35:00 Test Item Value Reference Range Comments HEPATITIS B SURFACE ANTIBODY (BEAKER) (test < mIU/mL <8.0 zekn=206) HEPATITIS B SURFACE [id number] 14:17:00 Test Item Value Reference Range Comments HEPATITIS B SURFACE ANTIGEN (2) (BEAKER) (test Nonreactive Nonreactive dhlo=3413) HEPATITIS B CORE ANTIBODY, [id number] 14:17:00 Test Item Value Reference Range Comments HEPATITIS B CORE IGM ANTIBODY (BEAKER) (test Nonreactive Nonreactive chnz=711) HEPATITIS C [id number] 14:17:00 Test Item Value Reference Range Comments HEPATITIS C ANTIBODY (BEAKER) (test vnru=118) Nonreactive Nonreactive BLOOD GAS, [id number] 13:48:00 Test Item Value Reference Range Comments PH VENOUS (BEAKER) (test amme=390) 7.40 7.32-7.42 PCO2 VENOUS (BEAKER) (test rszw=636) 33 mmHg 41-51 PO2 VENOUS (BEAKER) (test uhlp=209) 54 mmHg 25-40 O2 SATURATION VENOUS (BEAKER) (test ztpt=550) 90.4 % 40.0-70.0 HCO3 VENOUS (BEAKER) (test uxue=841) 20 mmol/L 21-29 BASE EXCESS VENOUS (BEAKER) (test wden=522) -4.6 mmol/L -2.0-3.0 PATIENT TEMPERATURE (BEAKER) (test kqro=5443) 35.6 C FIO2 (BEAKER) (test jxio=2058) 21.0 % CBC W/PLT COUNT & AUTO [id number] 08:07:00 Test Item Value Reference Range Comments WHITE BLOOD CELL COUNT 11.6 K/ L 3.5-10.5 (BEAKER) (test zzqe=265) RED BLOOD CELL COUNT (BEAKER) 4.49 M/ L 4.63-6.08 (test eijf=945) HEMOGLOBIN (BEAKER) (test 13.3 GM/DL 13.7-17.5 qazz=970) HEMATOCRIT (BEAKER) (test 42.1 % 40.1-51.0 xxau=840) MEAN CORPUSCULAR VOLUME 93.8 fL 79.0-92.2 Discordant from previous (BEAKER) (test xovl=685) results MEAN CORPUSCULAR HEMOGLOBIN 29.6 pg 25.7-32.2 (BEAKER) (test qfyu=369) MEAN CORPUSCULAR HEMOGLOBIN 31.6 GM/DL 32.3-36.5 CONC (BEAKER) (test txok=331) RED CELL DISTRIBUTION WIDTH 14.6 % 11.6-14.4 (BEAKER) (test melk=126) PLATELET COUNT (BEAKER) (test 171 K/CU MM 150-450 sapv=103) MEAN PLATELET VOLUME (BEAKER) 10.9 fL 9.4-12.4 (test bguy=759) NUCLEATED RED BLOOD CELLS 0 /100 WBC 0-0 (BEAKER) (test jjgc=334) NEUTROPHILS RELATIVE PERCENT 64 % (BEAKER) (test nfls=609) LYMPHOCYTES RELATIVE PERCENT 24 % (BEAKER) (test wkxl=191) MONOCYTES RELATIVE PERCENT 9 % (BEAKER) (test xthy=951) EOSINOPHILS RELATIVE PERCENT 2 % (BEAKER) (test hprd=656) BASOPHILS RELATIVE PERCENT 1 % (BEAKER) (test utiy=816) NEUTROPHILS ABSOLUTE COUNT 7.41 K/ L 1.78-5.38 (BEAKER) (test khdb=596) LYMPHOCYTES ABSOLUTE COUNT 2.75 K/ L 1.32-3.57 (BEAKER) (test anmh=495) MONOCYTES ABSOLUTE COUNT 1.02 K/ L 0.30-0.82 (BEAKER) (test xwiq=463) EOSINOPHILS ABSOLUTE COUNT 0.18 K/ L 0.04-0.54 (BEAKER) (test eunv=516) BASOPHILS ABSOLUTE COUNT 0.08 K/ L 0.01-0.08 (BEAKER) (test ntgn=546) IMMATURE GRANULOCYTES-RELATIVE 1 % 0-1 PERCENT (BEAKER) (test hahj=3778) [id number] 07:28:00 Test Item Value Reference Range Comments MAGNESIUM (BEAKER) (test 1.9 mg/dL 1.6-2.6 Specimen slightly hemolyzed pain=113) [id number] 07:28:00 Test Item Value Reference Range Comments PHOSPHORUS (BEAKER) (test 4.1 mg/dL 2.3-4.7 Specimen slightly hemolyzed ionr=553) COMPREHENSIVE METABOLIC [id number] 07:28:00 Test Item Value Reference Range Comments TOTAL PROTEIN (BEAKER) 6.2 gm/dL 6.0-8.3 Specimen slightly (test snbh=808) hemolyzed ALBUMIN (BEAKER) (test 3.5 g/dL 3.5-5.0 Specimen slightly hmvu=0605) hemolyzed ALKALINE PHOSPHATASE 68 U/L 40-150 (BEAKER) (test qbtf=898) BILIRUBIN TOTAL (BEAKER) 1.1 mg/dL 0.2-1.2 Specimen slightly (test krsd=934) hemolyzed SODIUM (BEAKER) (test 128 meq/L 136-145 bhiu=838) POTASSIUM (BEAKER) (test 4.7 meq/L 3.5-5.1 Specimen slightly luzu=929) hemolyzed CHLORIDE (BEAKER) (test 103 meq/L 98-107 gcxn=410) CO2 (BEAKER) (test 12 meq/L 22-29 fqfw=892) BLOOD UREA NITROGEN 38 mg/dL 7-21 (BEAKER) (test uwvb=437) CREATININE (BEAKER) (test 1.37 mg/dL 0.57-1.25 Specimen slightly qcdx=659) hemolyzed GLUCOSE RANDOM (BEAKER) 111 mg/dL 70-105 (test jiuc=116) CALCIUM (BEAKER) (test 8.5 mg/dL 8.4-10.2 frtj=444) AST (SGOT) (BEAKER) (test 269 U/L 5-34 Specimen slightly whby=332) hemolyzed ALT (SGPT) (BEAKER) (test 401 U/L 6-55 Specimen slightly mfxf=062) hemolyzed EGFR (BEAKER) (test 51 mL/min/1.73 sq m ESTIMATED GFR IS NOT hpif=0957) ACCURATE CREATININE CLEARANCE IN PREDICTING GLOMERULAR FILTRATION RATE. ESTIMATED GFR IS NOT APPLICABLE FOR DIALYSIS PATIENTS. CALCIUM, [id number] 07:10:00 Test Item Value Reference Range Comments CALCIUM IONIZED (BEAKER) (test eiqx=321) 0.94 mmol/L 1.12-1.27 PH, BLOOD (BEAKER) (test payv=7876) 7.39 HEPATIC FUNCTION [id number] 15:02:00 Test Item Value Reference Range Comments TOTAL PROTEIN (BEAKER) (test njsz=988) 5.8 gm/dL 6.0-8.3 ALBUMIN (BEAKER) (test rnzu=5079) 3.4 g/dL 3.5-5.0 BILIRUBIN TOTAL (BEAKER) (test ager=585) 0.7 mg/dL 0.2-1.2 BILIRUBIN DIRECT (BEAKER) (test clvs=115) 0.4 mg/dL 0.1-0.5 ALKALINE PHOSPHATASE (BEAKER) (test heka=835) 71 U/L 40-150 AST (SGOT) (BEAKER) (test vxun=474) 253 U/L 5-34 ALT (SGPT) (BEAKER) (test gkbb=263) 382 U/L 6-55 BASIC METABOLIC [id number] 15:02:00 Test Item Value Reference Range Comments SODIUM (BEAKER) (test 130 meq/L 136-145 afhd=924) POTASSIUM (BEAKER) (test 4.4 meq/L 3.5-5.1 elsz=534) CHLORIDE (BEAKER) (test 100 meq/L 98-107 uqgn=468) CO2 (BEAKER) (test 19 meq/L 22-29 uulu=387) BLOOD UREA NITROGEN 41 mg/dL 7-21 (BEAKER) (test zeny=961) CREATININE (BEAKER) (test 1.36 mg/dL 0.57-1.25 frzl=532) GLUCOSE RANDOM (BEAKER) 148 mg/dL 70-105 (test bevg=273) CALCIUM (BEAKER) (test 8.3 mg/dL 8.4-10.2 bagg=445) EGFR (BEAKER) (test 51 mL/min/1.73 sq m ESTIMATED GFR IS NOT bmdg=5021) ACCURATE CREATININE CLEARANCE IN PREDICTING GLOMERULAR FILTRATION RATE. ESTIMATED GFR IS NOT APPLICABLE FOR DIALYSIS PATIENTS. [id number] 14:54:00 Test Item Value Reference Range Comments AMMONIA (BEAKER) (test gybk=803) 44 mol/L 18-72 [id number] 05:33:00 Test Item Value Reference Range Comments PHOSPHORUS (BEAKER) (test vjly=809) 3.7 mg/dL 2.3-4.7 [id number] 05:33:00 Test Item Value Reference Range Comments MAGNESIUM (BEAKER) (test nguk=815) 1.9 mg/dL 1.6-2.6 BASIC METABOLIC [id number] 05:33:00 Test Item Value Reference Range Comments SODIUM (BEAKER) (test 130 meq/L 136-145 fubl=683) POTASSIUM (BEAKER) (test 4.3 meq/L 3.5-5.1 utuw=125) CHLORIDE (BEAKER) (test 100 meq/L 98-107 gffq=954) CO2 (BEAKER) (test 20 meq/L 22-29 jrmo=804) BLOOD UREA NITROGEN 39 mg/dL 7-21 (BEAKER) (test gdvu=131) CREATININE (BEAKER) (test 1.54 mg/dL 0.57-1.25 tgag=472) GLUCOSE RANDOM (BEAKER) 109 mg/dL 70-105 (test kplc=679) CALCIUM (BEAKER) (test 8.5 mg/dL 8.4-10.2 iybn=580) EGFR (BEAKER) (test 44 mL/min/1.73 sq m ESTIMATED GFR IS NOT zgeo=7095) ACCURATE CREATININE CLEARANCE IN PREDICTING GLOMERULAR FILTRATION RATE. ESTIMATED GFR IS NOT APPLICABLE FOR DIALYSIS PATIENTS. BASIC METABOLIC [id number] 19:59:00 Test Item Value Reference Range Comments SODIUM (BEAKER) (test 126 meq/L 136-145 xrpa=569) POTASSIUM (BEAKER) (test 4.6 meq/L 3.5-5.1 iwyh=717) CHLORIDE (BEAKER) (test 97 meq/L 98-107 axls=952) CO2 (BEAKER) (test 19 meq/L 22-29 zzay=219) BLOOD UREA NITROGEN 40 mg/dL 7-21 (BEAKER) (test atda=126) CREATININE (BEAKER) (test 1.49 mg/dL 0.57-1.25 qdvc=558) GLUCOSE RANDOM (BEAKER) 146 mg/dL 70-105 (test idlj=815) CALCIUM (BEAKER) (test 8.9 mg/dL 8.4-10.2 dqhr=657) EGFR (BEAKER) (test 46 mL/min/1.73 sq m ESTIMATED GFR IS NOT miuo=1414) ACCURATE CREATININE CLEARANCE IN PREDICTING GLOMERULAR FILTRATION RATE. ESTIMATED GFR IS NOT APPLICABLE FOR DIALYSIS PATIENTS. BASIC METABOLIC [id number] 13:46:00 Test Item Value Reference Range Comments SODIUM (BEAKER) (test 128 meq/L 136-145 qjbk=103) POTASSIUM (BEAKER) (test 4.6 meq/L 3.5-5.1 vdey=532) CHLORIDE (BEAKER) (test 99 meq/L 98-107 noki=060) CO2 (BEAKER) (test 17 meq/L 22-29 bvxm=477) BLOOD UREA NITROGEN 40 mg/dL 7-21 (BEAKER) (test wjra=413) CREATININE (BEAKER) (test 1.44 mg/dL 0.57-1.25 hxtw=672) GLUCOSE RANDOM (BEAKER) 113 mg/dL 70-105 (test tldc=916) CALCIUM (BEAKER) (test 8.8 mg/dL 8.4-10.2 cxtt=698) EGFR (BEAKER) (test 48 mL/min/1.73 sq m ESTIMATED GFR IS NOT swol=1246) ACCURATE CREATININE CLEARANCE IN PREDICTING GLOMERULAR FILTRATION RATE. ESTIMATED GFR IS NOT APPLICABLE FOR DIALYSIS PATIENTS. URIC [id number] 08:15:00 Test Item Value Reference Range Comments URIC ACID (BEAKER) (test wmmn=761) 8.9 mg/dL 2.6-7.2 [id number] 08:15:00 Test Item Value Reference Range Comments MAGNESIUM (BEAKER) (test fxba=726) 1.9 mg/dL 1.6-2.6 [id number] 08:15:00 Test Item Value Reference Range Comments PHOSPHORUS (BEAKER) (test mqmc=396) 3.8 mg/dL 2.3-4.7 BASIC METABOLIC [id number] 08:15:00 Test Item Value Reference Range Comments SODIUM (BEAKER) (test 127 meq/L 136-145 ipem=648) POTASSIUM (BEAKER) (test 4.6 meq/L 3.5-5.1 cgob=233) CHLORIDE (BEAKER) (test 98 meq/L 98-107 upoc=808) CO2 (BEAKER) (test 20 meq/L 22-29 epjk=278) BLOOD UREA NITROGEN 39 mg/dL 7-21 (BEAKER) (test jurg=711) CREATININE (BEAKER) (test 1.46 mg/dL 0.57-1.25 krbc=706) GLUCOSE RANDOM (BEAKER) 91 mg/dL 70-105 (test dqkz=346) CALCIUM (BEAKER) (test 8.8 mg/dL 8.4-10.2 sxjc=938) EGFR (BEAKER) (test 47 mL/min/1.73 sq m ESTIMATED GFR IS NOT exdx=2713) ACCURATE CREATININE CLEARANCE IN PREDICTING GLOMERULAR FILTRATION RATE. ESTIMATED GFR IS NOT APPLICABLE FOR DIALYSIS PATIENTS. CREATINE KINASE (CK)2017-06-19 08:15:00 Test Item Value Reference Range Comments CREATINE KINASE TOTAL (BEAKER) (test xukx=955) 739 U/L 29-200 CALCIUM, [id number] 07:24:00 Test Item Value Reference Range Comments CALCIUM IONIZED (BEAKER) (test pbjp=649) 1.07 mmol/L 1.12-1.27 PH, BLOOD (BEAKER) (test uwub=9690) 7.35 TSH/FREE T4 IF [id number] 05:53:00 Test Item Value Reference Range Comments THYROID STIMULATING HORMONE (BEAKER) (test 1.66 uIU/mL 0.35-4.94 isgx=767) CBC W/PLT COUNT & AUTO [id number] 05:35:00 Test Item Value Reference Range Comments WHITE BLOOD CELL COUNT (BEAKER) (test nwcp=763) 11.7 K/ L 3.5-10.5 RED BLOOD CELL COUNT (BEAKER) (test lwcz=067) 4.51 M/ L 4.63-6.08 HEMOGLOBIN (BEAKER) (test yhel=997) 13.4 GM/DL 13.7-17.5 HEMATOCRIT (BEAKER) (test bkzt=212) 40.4 % 40.1-51.0 MEAN CORPUSCULAR VOLUME (BEAKER) (test bczg=822) 89.6 fL 79.0-92.2 MEAN CORPUSCULAR HEMOGLOBIN (BEAKER) (test 29.7 pg 25.7-32.2 txoj=247) MEAN CORPUSCULAR HEMOGLOBIN CONC (BEAKER) (test 33.2 GM/DL 32.3-36.5 nnjo=219) RED CELL DISTRIBUTION WIDTH (BEAKER) (test 14.3 % 11.6-14.4 fyno=346) PLATELET COUNT (BEAKER) (test zfcl=278) 165 K/CU MM 150-450 MEAN PLATELET VOLUME (BEAKER) (test bkhj=388) 11.0 fL 9.4-12.4 NUCLEATED RED BLOOD CELLS (BEAKER) (test 0 /100 WBC 0-0 jkrq=295) NEUTROPHILS RELATIVE PERCENT (BEAKER) (test 74 % wwjn=606) LYMPHOCYTES RELATIVE PERCENT (BEAKER) (test 14 % byxx=463) MONOCYTES RELATIVE PERCENT (BEAKER) (test 10 % sxfa=930) EOSINOPHILS RELATIVE PERCENT (BEAKER) (test 1 % ggai=266) BASOPHILS RELATIVE PERCENT (BEAKER) (test 0 % rfeq=771) NEUTROPHILS ABSOLUTE COUNT (BEAKER) (test 8.69 K/ L 1.78-5.38 vxcv=421) LYMPHOCYTES ABSOLUTE COUNT (BEAKER) (test 1.68 K/ L 1.32-3.57 tegf=394) MONOCYTES ABSOLUTE COUNT (BEAKER) (test 1.12 K/ L 0.30-0.82 cywk=258) EOSINOPHILS ABSOLUTE COUNT (BEAKER) (test 0.11 K/ L 0.04-0.54 isrx=321) BASOPHILS ABSOLUTE COUNT (BEAKER) (test 0.05 K/ L 0.01-0.08 esjx=141) IMMATURE GRANULOCYTES-RELATIVE PERCENT (BEAKER) 1 % 0-1 (test khky=0426) B-TYPE NATRIURETIC FACTOR (BNP)2017-06-19 05:31:00 Test Item Value Reference Range Comments B-TYPE NATRIURETIC PEPTIDE (BEAKER) (test 740 pg/mL 0-100 fbfr=557) BASIC METABOLIC [id number] 02:53:00 Test Item Value Reference Range Comments SODIUM (BEAKER) (test 128 meq/L 136-145 kjrm=497) POTASSIUM (BEAKER) (test 4.7 meq/L 3.5-5.1 cffa=479) CHLORIDE (BEAKER) (test 101 meq/L 98-107 bafq=716) CO2 (BEAKER) (test 18 meq/L 22-29 qjjb=298) BLOOD UREA NITROGEN 38 mg/dL 7-21 (BEAKER) (test exou=826) CREATININE (BEAKER) (test 1.55 mg/dL 0.57-1.25 monv=364) GLUCOSE RANDOM (BEAKER) 94 mg/dL 70-105 (test bswl=910) CALCIUM (BEAKER) (test 8.5 mg/dL 8.4-10.2 kvzz=695) EGFR (BEAKER) (test 44 mL/min/1.73 sq m ESTIMATED GFR IS NOT djde=5333) ACCURATE CREATININE CLEARANCE IN PREDICTING GLOMERULAR FILTRATION RATE. ESTIMATED GFR IS NOT APPLICABLE FOR DIALYSIS PATIENTS. OSMOLALITY, [id number] 02:44:00 Test Item Value Reference Range Comments OSMOLALITY URINE (BEAKER) (test dsfr=209) 677 mOsm/kg 40-1400 [id number] 19:42:00 Test Item Value Reference Range Comments CORTISOL, TOTAL (BEAKER) (test qfng=5515) 17.4 ug/dL 3.7-19.4 [id number] 19:13:00 Test Item Value Reference Range Comments SODIUM (BEAKER) (test hztv=253) 128 meq/L 136-145 POTASSIUM (BEAKER) (test kzni=934) 4.9 meq/L 3.5-5.1 CHLORIDE (BEAKER) (test yarp=525) 100 meq/L 98-107 CO2 (BEAKER) (test ydup=836) 18 meq/L 22-29 Call [id number] METABOLIC [id number] 19:13:00 Test Item Value Reference Range Comments SODIUM (BEAKER) (test 128 meq/L 136-145 erjd=051) POTASSIUM (BEAKER) (test 4.9 meq/L 3.5-5.1 xsfr=615) CHLORIDE (BEAKER) (test 100 meq/L 98-107 kcel=902) CO2 (BEAKER) (test 18 meq/L 22-29 sfam=407) BLOOD UREA NITROGEN 38 mg/dL 7-21 (BEAKER) (test ymgr=849) CREATININE (BEAKER) (test 1.43 mg/dL 0.57-1.25 jaxl=331) GLUCOSE RANDOM (BEAKER) 98 mg/dL 70-105 (test zymj=867) CALCIUM (BEAKER) (test 8.3 mg/dL 8.4-10.2 pzfv=922) EGFR (BEAKER) (test 48 mL/min/1.73 sq m ESTIMATED GFR IS NOT clnv=9306) ACCURATE CREATININE CLEARANCE IN PREDICTING GLOMERULAR FILTRATION RATE. ESTIMATED GFR IS NOT APPLICABLE FOR DIALYSIS PATIENTS. Call [id number], RANDOM [id number] 12:24:00 Test Item Value Reference Range Comments PROTEIN, URINE (BEAKER) (test fjda=1843) 231 mg/dL 0-14 URINALYSIS W/ [id number] 11:52:00 Test Item Value Reference Range Comments COLOR (BEAKER) (test autq=697) Yellow CLARITY (BEAKER) (test hwal=951) Hazy SPECIFIC GRAVITY UA (BEAKER) (test vqvd=245) 1.018 1.001-1.035 PH UA (BEAKER) (test vfdf=188) 5.5 5.0-8.0 PROTEIN UA (BEAKER) (test asoi=663) 200 mg/dL Negative GLUCOSE UA (BEAKER) (test mpya=685) Negative Negative KETONES UA (BEAKER) (test bkhq=183) Negative Negative BILIRUBIN UA (BEAKER) (test ufeu=777) Negative Negative BLOOD UA (BEAKER) (test fmbc=960) Large Negative NITRITE UA (BEAKER) (test qzon=716) Negative Negative LEUKOCYTE ESTERASE UA (BEAKER) (test gmaj=588) Moderate Negative UROBILINOGEN UA (BEAKER) (test rnow=130) 0.2 mg/dL 0.2-1.0 RBC UA (BEAKER) (test fspg=692) 441 /HPF WBC UA (BEAKER) (test smwd=298) 66 /HPF MUCUS (BEAKER) (test hpor=3186) Rare SQUAMOUS EPITHELIAL (BEAKER) (test heie=179) < /HPF HYALINE CASTS (BEAKER) (test bhly=907) 15 /LPF SOURCE(BEAKER) (test mjue=9601) Urine, Murphy CREATININE, RANDOM [id number] 11:32:00 Test Item Value Reference Range Comments CREATININE URINE (BEAKER) (test hihv=464) 139.8 mg/dL Reference Range: No NormalsSODIUM, RANDOM [id number] 11:32:00 Test Item Value Reference Range Comments SODIUM URINE (BEAKER) (test fygo=794) 27 meq/L Reference Range: No NormalsBASIC METABOLIC [id number] 11:10:00 Test Item Value Reference Range Comments SODIUM (BEAKER) (test 126 meq/L 136-145 ptkk=088) POTASSIUM (BEAKER) (test 5.0 meq/L 3.5-5.1 hhvn=132) CHLORIDE (BEAKER) (test 97 meq/L 98-107 lydd=491) CO2 (BEAKER) (test 20 meq/L 22-29 ghjl=395) BLOOD UREA NITROGEN 39 mg/dL 7-21 (BEAKER) (test toqm=880) CREATININE (BEAKER) (test 1.51 mg/dL 0.57-1.25 imly=722) GLUCOSE RANDOM (BEAKER) 130 mg/dL 70-105 (test byup=851) CALCIUM (BEAKER) (test 8.4 mg/dL 8.4-10.2 zqoz=196) EGFR (BEAKER) (test 45 mL/min/1.73 sq m ESTIMATED GFR IS NOT swer=5417) ACCURATE CREATININE CLEARANCE IN PREDICTING GLOMERULAR FILTRATION RATE. ESTIMATED GFR IS NOT APPLICABLE FOR DIALYSIS PATIENTS. TISSUE [id number] 10:04:00Surgical Pathology Report Case: [id number] Authorizing Provider: Jacky Linares MD Collected: 06/16/2017 1213 Ordering Location: [facility] Received: 06/16/2017 1416 SERVICES Pathologist: Cristo Matta MD Specimen: Prostate , TURP, Prostate chips PROSTATE, TRANS-URETHRAL RESECTION: - NODULAR HYPERPLASIA [id number] with urinary obstruction, hematuria Prostate chipsThe specimen is received in aformalin- filled container labeled with the patient's information and labeled "prostate chips" and consists of 3 gm of multiple hahn-pink hahn-pink prostate chips measuring 3 x 2 x 1 cm in aggregate. The specimen is entirely submitted in A1- A3. CG/ew Performed.BASIC METABOLIC [id number] 07:32:00 Test Item Value Reference Range Comments SODIUM (BEAKER) (test 127 meq/L 136-145 unct=625) POTASSIUM (BEAKER) (test 5.0 meq/L 3.5-5.1 keek=986) CHLORIDE (BEAKER) (test 99 meq/L 98-107 plyn=918) CO2 (BEAKER) (test 17 meq/L 22-29 fbwb=521) BLOOD UREA NITROGEN 37 mg/dL 7-21 (BEAKER) (test wfgv=839) CREATININE (BEAKER) (test 1.45 mg/dL 0.57-1.25 mosp=730) GLUCOSE RANDOM (BEAKER) 107 mg/dL 70-105 (test gehk=909) CALCIUM (BEAKER) (test 8.4 mg/dL 8.4-10.2 ecsz=526) EGFR (BEAKER) (test 47 mL/min/1.73 sq m ESTIMATED GFR IS NOT teqf=4278) ACCURATE CREATININE CLEARANCE IN PREDICTING GLOMERULAR FILTRATION RATE. ESTIMATED GFR IS NOT APPLICABLE FOR DIALYSIS PATIENTS. OSMOLALITY, [id number] 02:38:00 Test Item Value Reference Range Comments OSMOLALITY URINE (BEAKER) (test oalh=755) 590 mOsm/kg 40-1400 URINALYSIS W/ REFLEX URINE [id number] 02:34:00 Test Item Value Reference Range Comments COLOR (BEAKER) (test ahzz=449) Yellow CLARITY (BEAKER) (test hdfw=292) Hazy SPECIFIC GRAVITY UA (BEAKER) (test lxrn=086) 1.017 1.001-1.035 PH UA (BEAKER) (test qrya=178) 6.0 5.0-8.0 PROTEIN UA (BEAKER) (test neft=468) 300 mg/dL Negative GLUCOSE UA (BEAKER) (test hlog=692) Negative Negative KETONES UA (BEAKER) (test opjc=254) Negative Negative BILIRUBIN UA (BEAKER) (test aipx=883) Negative Negative BLOOD UA (BEAKER) (test inhv=406) Large Negative NITRITE UA (BEAKER) (test vwmg=709) Negative Negative LEUKOCYTE ESTERASE UA (BEAKER) (test skvz=866) Moderate Negative UROBILINOGEN UA (BEAKER) (test wtgc=094) 0.2 mg/dL 0.2-1.0 RBC UA (BEAKER) (test aywl=782) > /HPF WBC UA (BEAKER) (test clvg=627) 44 /HPF AMORPHOUS CRYSTALS (BEAKER) (test qakb=6812) Occasional YEAST (BEAKER) (test psts=8424) Occasional SOURCE(BEAKER) (test gbhz=0096) CREATININE, RANDOM [id number] 02:19:00 Test Item Value Reference Range Comments CREATININE URINE (BEAKER) (test nfih=559) 163.8 mg/dL Reference Range: No NormalsSODIUM, RANDOM [id number] 02:19:00 Test Item Value Reference Range Comments SODIUM URINE (BEAKER) (test zwgw=809) 44 meq/L Reference Range: No NormalsTROPONIN [id number] 00:46:00 Test Item Value Reference Range Comments TROPONIN I (BEAKER) (test qmig=093) 0.09 ng/mL 0.00-0.03 Effective 10/10/2014: Reference Range [...] renalfailure, acidosis, acute neurological disease, and persistent tachyarrhythmia.[id number] 00:38: 00 Test Item Value Reference Range Comments PHOSPHORUS (BEAKER) (test jjvo=935) 4.8 mg/dL 2.3-4.7 [id number] 00:38:00 Test Item Value Reference Range Comments MAGNESIUM (BEAKER) (test jdis=151) 1.9 mg/dL 1.6-2.6 BASIC METABOLIC [id number] 00:38:00 Test Item Value Reference Range Comments SODIUM (BEAKER) (test 125 meq/L 136-145 ljjw=158) POTASSIUM (BEAKER) (test 5.3 meq/L 3.5-5.1 ozkv=382) CHLORIDE (BEAKER) (test 97 meq/L 98-107 ubmx=790) CO2 (BEAKER) (test 17 meq/L 22-29 dpux=619) BLOOD UREA NITROGEN 34 mg/dL 7-21 (BEAKER) (test oici=214) CREATININE (BEAKER) (test 1.66 mg/dL 0.57-1.25 fedm=142) GLUCOSE RANDOM (BEAKER) 154 mg/dL 70-105 (test inbk=797) CALCIUM (BEAKER) (test 8.5 mg/dL 8.4-10.2 mwkr=379) EGFR (BEAKER) (test 41 mL/min/1.73 sq m ESTIMATED GFR IS NOT nelu=2431) ACCURATE CREATININE CLEARANCE IN PREDICTING GLOMERULAR FILTRATION RATE. ESTIMATED GFR IS NOT APPLICABLE FOR DIALYSIS PATIENTS. HEMOGLOBIN AND [id number] 00:16:00 Test Item Value Reference Range Comments HEMOGLOBIN (BEAKER) (test evph=130) 13.7 GM/DL 13.7-17.5 HEMATOCRIT (BEAKER) (test xuzt=082) 42.2 % 40.1-51.0 POCT-GLUCOSE [id number] 23:55:00 Test Item Value Reference Range Comments POC-GLUCOSE METER (BEAKER) 164 mg/dL 70-110 TESTED AT [facility] [address] [facility] (test lyaf=7287) [facility] [address] TROPONIN [id number] 18:42:00 Test Item Value Reference Range Comments TROPONIN I (BEAKER) (test rbef=161) 0.10 ng/mL 0.00-0.03 Effective 10/10/2014: Reference Range [...] NATRIURETIC PEPTIDE (BEAKER) (test 697 pg/mL 0-100 nffx=580) [id number] 18:34:00 Test Item Value Reference Range Comments PHOSPHORUS (BEAKER) (test lido=108) 4.6 mg/dL 2.3-4.7 [id number] 18:34:00 Test Item Value Reference Range Comments MAGNESIUM (BEAKER) (test rtom=861) 1.8 mg/dL 1.6-2.6 BASIC METABOLIC [id number] 18:34:00 Test Item Value Reference Range Comments SODIUM (BEAKER) (test 126 meq/L 136-145 srgd=939) POTASSIUM (BEAKER) (test 4.7 meq/L 3.5-5.1 daxq=216) CHLORIDE (BEAKER) (test 97 meq/L 98-107 dchu=682) CO2 (BEAKER) (test 18 meq/L 22-29 bpio=750) BLOOD UREA NITROGEN 32 mg/dL 7-21 (BEAKER) (test eoui=843) CREATININE (BEAKER) (test 1.46 mg/dL 0.57-1.25 mgmo=821) GLUCOSE RANDOM (BEAKER) 144 mg/dL 70-105 (test iwgb=265) CALCIUM (BEAKER) (test 8.4 mg/dL 8.4-10.2 ppxy=089) EGFR (BEAKER) (test 47 mL/min/1.73 sq m ESTIMATED GFR IS NOT tqlg=2779) ACCURATE CREATININE CLEARANCE IN PREDICTING GLOMERULAR FILTRATION RATE. ESTIMATED GFR IS NOT APPLICABLE FOR DIALYSIS PATIENTS. CBC (HEMOGRAM ONLY)2017-06-17 18:06:00 Test Item Value Reference Range Comments WHITE BLOOD CELL COUNT (BEAKER) (test ljtt=791) 13.3 K/ L 3.5-10.5 RED BLOOD CELL COUNT (BEAKER) (test bkuv=814) 4.28 M/ L 4.63-6.08 HEMOGLOBIN (BEAKER) (test xltd=801) 12.7 GM/DL 13.7-17.5 HEMATOCRIT (BEAKER) (test udkn=016) 39.7 % 40.1-51.0 MEAN CORPUSCULAR VOLUME (BEAKER) (test supo=906) 92.8 fL 79.0-92.2 MEAN CORPUSCULAR HEMOGLOBIN (BEAKER) (test 29.7 pg 25.7-32.2 vail=725) MEAN CORPUSCULAR HEMOGLOBIN CONC (BEAKER) (test 32.0 GM/DL 32.3-36.5 hwfa=790) RED CELL DISTRIBUTION WIDTH (BEAKER) (test 14.3 % 11.6-14.4 kcud=086) PLATELET COUNT (BEAKER) (test njvn=991) 185 K/CU MM 150-450 MEAN PLATELET VOLUME (BEAKER) (test xskr=412) 10.7 fL 9.4-12.4 NUCLEATED RED BLOOD CELLS (BEAKER) (test 0 /100 WBC 0-0 nouc=195) BASIC METABOLIC [id number] 12:13:00 Test Item Value Reference Range Comments SODIUM (BEAKER) (test 132 meq/L 136-145 rmjg=572) POTASSIUM (BEAKER) (test 4.6 meq/L 3.5-5.1 wjdg=548) CHLORIDE (BEAKER) (test 102 meq/L 98-107 vqqs=091) CO2 (BEAKER) (test 22 meq/L 22-29 hkwg=708) BLOOD UREA NITROGEN 30 mg/dL 7-21 (BEAKER) (test nalk=045) CREATININE (BEAKER) (test 1.43 mg/dL 0.57-1.25 anvy=285) GLUCOSE RANDOM (BEAKER) 103 mg/dL 70-105 (test hqgv=385) CALCIUM (BEAKER) (test 8.5 mg/dL 8.4-10.2 lcik=247) EGFR (BEAKER) (test 48 mL/min/1.73 sq m ESTIMATED GFR IS NOT sjah=2555) ACCURATE CREATININE CLEARANCE IN PREDICTING GLOMERULAR FILTRATION RATE. ESTIMATED GFR IS NOT APPLICABLE FOR DIALYSIS PATIENTS. HEMOGLOBIN AND [id number] 11:54:00 Test Item Value Reference Range Comments HEMOGLOBIN (BEAKER) (test fjkv=676) 12.5 GM/DL 13.7-17.5 HEMATOCRIT (BEAKER) (test fvnw=327) 39.0 % 40.1-51.0 [id number] 17:57:00 Test Item Value Reference Range Comments MAGNESIUM (BEAKER) (test 1.9 mg/dL 1.6-2.6 Specimen slightly hemolyzed abcr=236) [id number] 17:57:00 Test Item Value Reference Range Comments PHOSPHORUS (BEAKER) (test 4.7 mg/dL 2.3-4.7 Specimen slightly hemolyzed xree=210) BASIC METABOLIC [id number] 17:57:00 Test Item Value Reference Range Comments SODIUM (BEAKER) (test 137 meq/L 136-145 lxmo=053) POTASSIUM (BEAKER) (test 5.1 meq/L 3.5-5.1 Specimen slightly ydvv=920) hemolyzed CHLORIDE (BEAKER) (test 109 meq/L 98-107 sxoz=017) CO2 (BEAKER) (test 19 meq/L 22-29 oltu=813) BLOOD UREA NITROGEN 25 mg/dL 7-21 (BEAKER) (test hjir=035) CREATININE (BEAKER) (test 1.08 mg/dL 0.57-1.25 Specimen slightly nqxd=545) hemolyzed GLUCOSE RANDOM (BEAKER) 130 mg/dL 70-105 (test nnkp=734) CALCIUM (BEAKER) (test 8.8 mg/dL 8.4-10.2 gxiy=154) EGFR (BEAKER) (test 67 mL/min/1.73 sq m ESTIMATED GFR IS NOT fwbx=1080) ACCURATE CREATININE CLEARANCE IN PREDICTING GLOMERULAR FILTRATION RATE. ESTIMATED GFR IS NOT APPLICABLE FOR DIALYSIS PATIENTS. BASIC METABOLIC [id number] 15:00:00 Test Item Value Reference Range Comments SODIUM (BEAKER) (test 137 meq/L 136-145 dszy=889) POTASSIUM (BEAKER) (test 4.9 meq/L 3.5-5.1 wshq=592) CHLORIDE (BEAKER) (test 109 meq/L 98-107 rqgf=497) CO2 (BEAKER) (test 21 meq/L 22-29 bwpj=983) BLOOD UREA NITROGEN 24 mg/dL 7-21 (BEAKER) (test drje=110) CREATININE (BEAKER) (test 1.13 mg/dL 0.57-1.25 zooy=231) GLUCOSE RANDOM (BEAKER) 141 mg/dL 70-105 (test gveq=597) CALCIUM (BEAKER) (test 9.0 mg/dL 8.4-10.2 ofjz=636) EGFR (BEAKER) (test 63 mL/min/1.73 sq m ESTIMATED GFR IS NOT rgfh=2131) ACCURATE CREATININE CLEARANCE IN PREDICTING GLOMERULAR FILTRATION RATE. ESTIMATED GFR IS NOT APPLICABLE FOR DIALYSIS PATIENTS. HEMOGLOBIN AND [id number] 14:18:00 Test Item Value Reference Range Comments HEMOGLOBIN (BEAKER) (test ylut=685) 13.3 GM/DL 13.7-17.5 HEMATOCRIT (BEAKER) (test nevl=101) 41.1 % 40.1-51.0 [id number] 12:37:00 Test Item Value Reference Range Comments SODIUM (BEAKER) (test xwmz=347) 138 meq/L 136-145 POTASSIUM (BEAKER) (test tuvm=758) 4.3 meq/L 3.5-5.1 CHLORIDE (BEAKER) (test qqwt=632) 104 meq/L 98-107 CO2 (BEAKER) (test woyh=753) 25 meq/L 22-29 [id number] 12:37:00 Test Item Value Reference Range Comments GLUCOSE RANDOM (BEAKER) (test jpvq=908) 87 mg/dL 70-105 Effective 10/10/2014: Reference Range Change-Adult onlyNew: 70-105 Previous : 70-110BUN AND [id number] 12:37:00 Test Item Value Reference Range Comments BLOOD UREA NITROGEN 20 mg/dL 7-21 (BEAKER) (test yrnp=052) CREATININE (BEAKER) (test 1.10 mg/dL 0.57-1.25 ptzq=454) EGFR (BEAKER) (test 65 mL/min/1.73 sq m ESTIMATED GFR IS NOT rlkh=8324) ACCURATE CREATININE CLEARANCE IN PREDICTING GLOMERULAR FILTRATION RATE. ESTIMATED GFR IS NOT APPLICABLE FOR DIALYSIS PATIENTS. CBC W/PLT COUNT & AUTO [id number] 12:24:00 Test Item Value Reference Range Comments WHITE BLOOD CELL COUNT (BEAKER) (test qrvh=605) 6.8 K/ L 4.0-10.0 RED BLOOD CELL COUNT (BEAKER) (test oriq=230) 4.62 M/ L 4.20-5.80 HEMOGLOBIN (BEAKER) (test ctmc=357) 14.7 GM/DL 13.0-16.8 HEMATOCRIT (BEAKER) (test vhpm=357) 43.1 % 40.0-50.0 MEAN CORPUSCULAR VOLUME (BEAKER) (test yxpb=957) 93.2 fL 82.0-98.0 MEAN CORPUSCULAR HEMOGLOBIN (BEAKER) (test 31.8 pg 27.0-33.0 sbau=982) MEAN CORPUSCULAR HEMOGLOBIN CONC (BEAKER) (test 34.1 GM/DL 32.0-36.0 mxpk=632) RED CELL DISTRIBUTION WIDTH (BEAKER) (test 13.1 % 10.3-14.2 otjk=953) PLATELET COUNT (BEAKER) (test mvpc=880) 179 K/CU MM 150-430 MEAN PLATELET VOLUME (BEAKER) (test suwg=948) 7.2 fL 6.5-10.5 NUCLEATED RED BLOOD CELLS (BEAKER) (test 0 /100 WBC 0-0 enwy=352) NEUTROPHILS RELATIVE PERCENT (BEAKER) (test 67 % graf=084) LYMPHOCYTES RELATIVE PERCENT (BEAKER) (test 23 % toew=431) MONOCYTES RELATIVE PERCENT (BEAKER) (test 7 % giri=423) EOSINOPHILS RELATIVE PERCENT (BEAKER) (test 2 % ycyv=887) BASOPHILS RELATIVE PERCENT (BEAKER) (test 1 % lonh=427) NEUTROPHILS ABSOLUTE COUNT (BEAKER) (test 4.56 K/ L 1.80-8.00 nhwo=974) LYMPHOCYTES ABSOLUTE COUNT (BEAKER) (test 1.59 K/ L 1.48-4.50 jooa=229) MONOCYTES ABSOLUTE COUNT (BEAKER) (test 0.47 K/ L 0.00-1.30 jlby=113) EOSINOPHILS ABSOLUTE COUNT (BEAKER) (test 0.17 K/ L 0.00-0.50 pvon=464) BASOPHILS ABSOLUTE COUNT (BEAKER) (test 0.05 K/ L 0.00-0.20 inzv=586) 0.00
[2018-04-14] MEDS ORDERED: Ringers Lactate 1,000 ML IV ONE (08:10)
[2018-04-14] MEDS ORDERED: PROPOFOL 200 MG/20 ML VIAL IV ONE (10:30)
--- NOTE | 2018-04-14 11:07 | ENDO RPT ---
[address], [address] COLONOSCOPY PROCEDURE REPORT EXAM DATE: 04/14/2018 PATIENT NAME: Samir Orourke MR #: [id number] BIRTHDATE: 1940 ATTENDING: Samir Denny Dr STATUS: outpatient BURGLAR ALARM SUPERINTENDENT: Arely Banerjee and Arpita Mcguire RN INDICATIONS: The patient is a 78 yr old Male here for a colonoscopy due to iron deficiency anemia PROCEDURE PERFORMED: Colonoscopy with hot biopsy polypectomy and Colonoscopy with snare polypectomy MEDICATIONS: Per Anesthesia. ESTIMATED BLOOD LOSS: None CONSENT: The patient understands the risks and benefits of the procedure and understands that these risks include, but are not limited to: sedation, allergic reaction, infection, perforation and/or bleeding. Alternative means of evaluation and treatment include, among others: physical exam, x-rays, and/or surgical intervention. The patient elects to proceed with this endoscopic procedure. DESCRIPTION OF PROCEDURE: During intra-op preparation period all mechanical medical equipment was checked for proper function. Hand hygiene and appropriate measures for infection prevention was taken. Procedure, possible complications, alternatives including, but not limited to possibility of bleeding, perforation, tear, infection, sepsis, need for surgery, need for blood transfusion, were explained to the patient. After the risks, benefits and alternatives of the procedure were thoroughly explained, Informed consent was verified, confirmed and timeout was successfully executed by the treatment team. The patient was placed in the left lateral position. A digital rectal exam was performed and revealed no abnormalities of the rectum. After appropriate level of anesthesia, the scope was passed. The [id number] ([id number]) endoscope was introduced through the anus and advanced to the cecum, which was identified by both the appendix and ileocecal valve. The quality of the prep was fair. The instrument was then slowly withdrawn as the colon was fully examined. Scope withdrawal time was 9 minutes. COLON FINDINGS: A sessile polyp measuring 4 mm in size was found at the cecum. A polypectomy was performed using hot forceps. A sessile polyp measuring 4 mm in size was found in the ascending colon. A polypectomy was performed using hot forceps. A sessile polyp measuring 6 mm in size was found at the hepatic flexure. A polypectomy was performed using snare cautery. A pedunculated polyp measuring 9 mm in size was found in the rectum. A polypectomy was performed using snare cautery. Small internal hemorrhoids were found. Retroflexed views revealed small hemorrhoids. The scope was then completely withdrawn from the patient and the procedure terminated. ADVERSE EVENTS: There were no complications. IMPRESSIONS: 1. 4 mm sessile polyp at the cecum; polypectomy was performed using hot forceps 2. 4 mm sessile polyp measuring 4 mm in size in the ascending colon; polypectomy was performed using hot forceps 3. 6 mm sessile polyp at the hepatic flexure; polypectomy was performed using snare cautery 4. 9 mm pedunculated polyp in the rectum; polypectomy was performed using snare cautery 5. Small internal hemorrhoids 6. Intubation to cecum RECOMMENDATIONS: 1. await biopsy results 2. avoid NSAIDS for 2 weeks 3. fiber rich diet 4. Small Bowel Follow Through 5. pillcam / capsule endoscopy RECALL: Samir Denny Dr eSigned: Samir Denny Dr 04/14/2018 11:07 AM cc: Camden Bello CPT CODES: ICD9 CODES: 1. 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 569.0 Anal and rectal polyp PATIENT NAME: Samir Orourke MR#: [id number]
--- NOTE | 2018-04-14 11:09 | ENDO RPT ---
[address], [address] COLONOSCOPY PROCEDURE REPORT EXAM DATE: 04/14/2018 PATIENT NAME: Samir Orourke MR #: [id number] BIRTHDATE: 1940 ATTENDING: Samir Denny Dr STATUS: outpatient COMPOSITION MIXER: Arely Banerjee and Arpita Mcguire RN INDICATIONS: The patient is a 78 yr old Male here for a colonoscopy due to iron deficiency anemia PROCEDURE PERFORMED: Colonoscopy with hot biopsy polypectomy and Colonoscopy with snare polypectomy MEDICATIONS: Per Anesthesia. ESTIMATED BLOOD LOSS: None CONSENT: The patient understands the risks and benefits of the procedure and understands that these risks include, but are not limited to: sedation, allergic reaction, infection, perforation and/or bleeding. Alternative means of evaluation and treatment include, among others: physical exam, x-rays, and/or surgical intervention. The patient elects to proceed with this endoscopic procedure. DESCRIPTION OF PROCEDURE: During intra-op preparation period all mechanical medical equipment was checked for proper function. Hand hygiene and appropriate measures for infection prevention was taken. Procedure, possible complications, alternatives including, but not limited to possibility of bleeding, perforation, tear, infection, sepsis, need for surgery, need for blood transfusion, were explained to the patient. After the risks, benefits and alternatives of the procedure were thoroughly explained, Informed consent was verified, confirmed and timeout was successfully executed by the treatment team. The patient was placed in the left lateral position. A digital rectal exam was performed and revealed a nodular prostate. After appropriate level of anesthesia, the scope was passed. The [id number] ([id number]) endoscope was introduced through the anus and advanced to the cecum, which was identified by both the appendix and ileocecal valve. The quality of the prep was fair. The instrument was then slowly withdrawn as the colon was fully examined. Scope withdrawal time was 9 minutes. COLON FINDINGS: A sessile polyp measuring 4 mm in size was found at the cecum. A polypectomy was performed using hot forceps. A sessile polyp measuring 4 mm in size was found in the ascending colon. A polypectomy was performed using hot forceps. A sessile polyp measuring 6 mm in size was found at the hepatic flexure. A polypectomy was performed using snare cautery. A pedunculated polyp measuring 9 mm in size was found in the rectum. A polypectomy was performed using snare cautery. Small internal hemorrhoids were found. Retroflexed views revealed small hemorrhoids. The scope was then completely withdrawn from the patient and the procedure terminated. ADVERSE EVENTS: There were no complications. IMPRESSIONS: 1. 4 mm sessile polyp at the cecum; polypectomy was performed using hot forceps 2. 4 mm sessile polyp measuring 4 mm in size in the ascending colon; polypectomy was performed using hot forceps 3. 6 mm sessile polyp at the hepatic flexure; polypectomy was performed using snare cautery 4. 9 mm pedunculated polyp in the rectum; polypectomy was performed using snare cautery 5. Small internal hemorrhoids 6. Intubation to cecum 7. Nodular prostate RECOMMENDATIONS: 1. await biopsy results 2. avoid NSAIDS for 2 weeks 3. fiber rich diet 4. Small Bowel Follow Through 5. pillcam / capsule endoscopy 6. urology consult RECALL: None scheduled due to age (78 y.o.) Samir [address] Dr eSigned: Samir Denny Dr 04/14/2018 11:09 AM Revised: 04/14/2018 11:09 AM cc: Camden Bello CPT CODES: ICD9 CODES: 1. 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 569.0 Anal and rectal polyp PATIENT NAME: Samir Orourke MR#: [id number]
[2018-04-14 11:13] VITALS: TEMP 96.7
[2018-04-14 11:43] VITALS: BP 122/73; O2SAT 99
[2018-04-14 11:57] LABS: Urine Appearance CLEAR; Urine Bilirubin NEGATIVE (NEG); Urine Blood NEGATIVE (NEG); Urine Color YELLOW; Urine Glucose NEGATIVE (NEG); Urine Protein NEGATIVE (NEG); Urine Urobilinogen 0.2 mg/dL (0.2-1.0)
[2018-04-14 12:10] LABS: Urine Microscopic Reflex ORDER UMIC
[2018-04-14 12:13] LABS: Urine Bacteria <20 /HPF (NONE SEEN); Urine Culture Reflex Order NOT NEEDED; Urine RBC <5 /HPF (NONE SEEN)
--- NOTE | 2018-04-14 13:49 | RAD REPORT ---
EXAM DESCRIPTION: RAD - Small Bowel Series - 04/14/2018 1:40 pm CLINICAL HISTORY: Abdominal pain COMPARISON: CT March 18 FINDINGS: Wheelabrator Operator film shows a nonspecific bowel gas pattern. No obstruction or free air. No suspiciou s calcifications. Gastric size and mucosal fold pattern are normal. No delay in transit of contrast into the small gus l. Small bowel is normal in diameter with no mucosal fold thickening. No intrinsic or extrinsic mass identifiable. Terminal ileum has normal appearance. Transit time to the colon is 45 minutes.. IMPRESSION: Normal small bowel series.
== END 2018-04-14 13:38 | disposition home or self-care (01) ==
LOC: OR 07:34
PROVIDERS: ATTEND Internal Medicine Gastroenterology
PROC: 0DBH8ZX Excision of Cecum, Via Natural or Artificial Opening Endoscopic, Diagnostic (ICD-10-PCS; 2018-04-14)
PROC: 0DBP8ZX Excision of Rectum, Via Natural or Artificial Opening Endoscopic, Diagnostic (ICD-10-PCS; 2018-04-14)
PROC: 0DBL8ZX Excision of Transverse Colon, Via Natural or Artificial Opening Endoscopic, Diagnostic (ICD-10-PCS; 2018-04-14)
PROC: 0DBK8ZX Excision of Ascending Colon, Via Natural or Artificial Opening Endoscopic, Diagnostic (ICD-10-PCS; principal; 2018-04-14 10:15)
DX: D12.0 Benign neoplasm of cecum (principal); D12.2 Benign neoplasm of ascending colon; D12.3 Benign neoplasm of transverse colon; D12.8 Benign neoplasm of rectum; D50.9 Iron deficiency anemia, unspecified; K64.8 Other hemorrhoids; I25.10 Atherosclerotic heart disease of native coronary artery without angina pectoris; I48.91 Unspecified atrial fibrillation; I73.9 Peripheral vascular disease, unspecified; Z95.0 Presence of cardiac pacemaker; Z95.1 Presence of aortocoronary bypass graft; Z87.891 Personal history of nicotine dependence; Z80.3 Family history of malignant neoplasm of breast
CPT/HCPCS: 74250; 81003; 81015; 88305

== ENCOUNTER 2018-10-21 06:22 | Day surgery (SDC) | payer OTHER ==
[2018-10-20 16:08] LABS: Absolute Lymphocytes (CBC) 2.1 K/uL (0.7-4.9); Absolute Monocytes 0.7 K/uL (0.1-1.3); Absolute Neutrophil 3.5 K/uL (1.8-8.0); Basophils % 1.2 % (0-1.3); Eosinophils % 2.3 % (0-4.4); Hematocrit 38.7 % (39.6-49.0); Lymphocytes % 32.3 % (15.3-44.8); MCH 25.5 pg (27.0-35.0); MCV 79.8 fL (80-100); MPV 8.8 fL (7.6-11.3); Monocytes % 10.5 % (3.3-12.3); RBC Red Blood Cell Count 4.86 M/uL (4.33-5.43)
[2018-10-20 16:17] LABS: Protime INR 3.57
[2018-10-20 16:21] LABS: Potassium 3.8 mmol/L (3.5-5.1)
[2018-10-20 17:21] LABS: Anisocytosis 1+; Blood Morphology Comment NOTED (NOT SEEN); Ovalocytes 2+; Platelet Estimate ADEQ; Urine White Blood Cell Casts OK
--- OUTSIDE RECORDS SUMMARY | 2018-10-21 06:24 | XMS REPORT | Clinical Summary ---
:1940 Author Organization [facility] Address [address] [place] [address] Care Team Providers Name Role Phone Camden Bello Primary Care Provider Allergies No Known Allergies Medications Medication Sig Dispensed Refills Start Date End Date Status rivaroxaban Take by mouth 0 Active (XARELTO) 20 mg Tab daily. tablet carvedilol (COREG) Take 6.25 mg by 0 Active 6.25 MG tablet mouth 2 (two) times daily with breakfast and dinner. pantoprazole Take 40 mg by 0 Active (PROTONIX) 40 MG mouth daily. tablet cyanocobalamin, Take by mouth 0 Active vitamin B-12, as needed. (VITAMIN B-12 ORAL) multivitamin Take 1 tablet 0 Active (MULTIVITAMIN) per by mouth 3 tablet (three) times a week. clopidogrel (PLAVIX) Take 75 mg by 0 Discontinued 75 mg tablet mouth daily. 8 pravastatin Take 10 mg by 0 Discontinued (PRAVACHOL) 10 MG mouth daily. 8 tablet PNV w/o calcium-iron Take by mouth. 0 Discontinued fum-FA (M-VIT) 27-1 8 mg Tab folic acid (FOLVITE) Take 1 mg by 0 Discontinued 1 MG tablet mouth daily. 8 magnesium oxide Take 400 mg by 0 Discontinued (MAG-OX) 400 mg mouth 2 (two) 8 tablet times daily. potassium chloride Take 20 mEq by 0 Discontinued (KLOR-CON) 10 MEQ CR mouth 2 (two) 8 tablet times daily. cyanocobalamin Take 250 mcg by 0 Discontinued (VITAMIN B-12) 250 mouth daily. 8 MCG tablet metoprolol Take 50 mg by 0 Discontinued (LOPRESSOR) 50 MG mouth 2 (two) 8 tablet times daily. memantine (NAMENDA) Take 1 tablet 60 tablet 2 06/23/2017 10 MG tablet (10 mg total) 8 by mouth 2 (two) times daily. Active Problems Problem Noted Date Hematuria 06/23/2017 BPH (benign prostatic hyperplasia) 06/16/2017 Encounters Date Type Specialty Care Team Description 07/28/2018 Anesthesia Event Gastroenterology Alireza Sandhu MD 07/28/2018 Surgery Gastroenterology Sarah Tovar UPPER ENDOSCOPY MD Mark 07/28/2018 Hospital Encounter Gastroenterology Sarah Tovar MD 07/28/2018 Orders Only General Internal Medicine 07/27/2018 Hospital Encounter Pre-Admission Testing Resource, [place] P[facility] Phone after 10/20/2017 Social History Tobacco Use Types Packs/Day Years Used Date Former Smoker Smokeless Tobacco: Never Used Comments: quit 1964 Alcohol Use Drinks/Week oz/Week Comments Yes 2 Shots of liquor 1.2 occasional, 2-3 drinks per day Sex Assigned at Date Recorded Not on file Job Start Date Occupation Industry Not on file Not on file Not on file Travel History Travel Start Travel End No recent travel history available. Last Filed Vital Signs Vital Sign Reading Time Taken Blood Pressure 130/85 07/28/2018 5:30 PM CDT Pulse 75 07/28/2018 5:30 PM CDT Temperature 36.9 C (98.5 F) 07/28/2018 5:30 PM CDT Respiratory Rate 17 07/28/2018 5:30 PM CDT Oxygen Saturation 96% 07/28/2018 5:30 PM CDT Inhaled Oxygen Concentration - - Weight 98.9 kg (218 lb 1.6 oz) 07/28/2018 1:37 PM CDT Height 185.4 cm (6' 1") 07/28/2018 1:37 PM CDT Body Mass Index 28.77 07/28/2018 1:37 PM CDT Plan of Treatment Not on file Procedures Procedure Name Priority Date/Time Associated Comments Diagnosis REPORT OF PROCEDURE 07/28/2018 4:39 PM - ENDOSCOPY URL CDT [place] 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 PROCEDURE W/ C-ARM 07/28/2018 3:00 PM Foreign body in CDT digestive tract, initial encounter UPPER ENDOSCOPY 07/28/2018 3:00 PM Foreign body in CDT digestive tract, initial encounter ECG 12-LEAD Routine 07/28/2018 2:14 PM CDT Procedure Note - Interface, External Ris In - 07/28/2018 2:22 PM CDT Ventricular Rate 79 BPM Atrial Rate 78 BPM QRS Duration 102 ms Q-T Interval 424 ms QTC Calculation(Bazett) 486 ms R [place] -45 degrees T [place] 154 degrees Atrial fibrillation with frequent ventricular-paced complexes and with premature ventricular or aberrantly conducted complexes Left axis deviation ST & T wave abnormality, consider lateral ischemia Prolonged QT Abnormal ECG When compared with ECG of 18-JUN-2017 00:44, Vent. rate has increased BY 9 BPM ECG 12-LEAD Routine 07/28/2018 2:14 PM CDT after 10/20/2017 Results REPORT OF PROCEDURE - ENDOSCOPY URL (07/28/2018 4:39 PM CDT) Narrative Performed At [place] hybrid derivatives trader in or 30 minute increments (07/28/2018 4:36 PM CDT) Narrative Performed At FINAL REPORT GE RIS TECHNIQUE: Fluoroscopic images from endoscopic procedure were submitted for interpretation. INDICATION: 78-year-old man with retained endoscopy capsule. COMPARISON: None. IMPRESSION: Fluoroscopic images from endoscopic procedure, not obtained by the undersigned. Please refer to endoscopy note for more details of the procedure and findings. Fluoroscopy time: 0.2 minutes Number of images: 2 Signed: Reina Gunn MD Report Verified Date/Time:07/28/2018 17:30:09 Reading Location: [address] Radiology Reading Room Procedure Note Interface, External Ris In - 07/28/2018 5:32 PM CDT FINAL REPORT TECHNIQUE: Fluoroscopic images from endoscopic procedure were submitted for interpretation. INDICATION: 78-year-old man with retained endoscopy capsule. COMPARISON: None. IMPRESSION: Fluoroscopic images from endoscopic procedure, not obtained by the undersigned. Please refer to endoscopy note for more details of the procedure and findings. Fluoroscopy time: 0.2 minutes Number of images: 2 Signed: Reina Gunn MD Report Verified Date/Time: 07/28/2018 17:30:09 Reading Location: [address] Radiology Reading Room Performing Organization Address [facility] Phone Number [facility] RIS ECG 12 lead (07/28/2018 2:14 PM CDT) Narrative Performed At Ventricular Rate 79 BPM GE MUSE Atrial Rate 78 BPM QRS Duration 102 ms Q-T Interval 424 ms QTC Calculation(Bazett) 486 ms R [place] -45 degrees T [place] 154 degrees Atrial fibrillation with frequent ventricular-paced complexes ST & T wave abnormality, consider lateral ischemia Prolonged QT Abnormal ECG When compared with ECG of 18-JUN-2017 00:44, Vent. rate has increased BY 9 BPM Confirmed by MD Bland Roberto ([id number]) on 07/29/2018 10:31:05 AM Procedure Note Interface, External Ris In - 07/29/2018 10:31 AM CDT Ventricular Rate 79 BPM Atrial Rate 78 BPM QRS Duration 102 ms Q-T Interval 424 ms QTC Calculation(Bazett) 486 ms R [place] -45 degrees T [place] 154 degrees Atrial fibrillation with frequent ventricular-paced complexes ST & T wave abnormality, consider lateral ischemia Prolonged QT Abnormal ECG When compared with ECG of 18-JUN-2017 00:44, Vent. rate has increased BY 9 BPM Confirmed by MD Bland Roberto ([id number]) on 07/29/2018 10:31:05 AM Performing Organization Address [facility] Phone Number GE MUSE after 10/20/2017 Insurance Payer Benefit Plan / Group Subscriber ID Type Phone Address MEDICARE MEDICARE A B xxxxxxxxxx Medicare [facility] GENERIC MEDICARE xxxxxxxxx Medigap SUPPLEMENT/INDIVIDUAL SUPPLEMENT Advance Directives For more information, please contact:[address] [phone] Code Status Date Activated Date Inactivated Comments Full Code 06/16/2017 4:17 PM 06/23/2017 6:10 PM This code status was determined by: Patient
--- OUTSIDE RECORDS SUMMARY | 2018-10-21 06:24 | XMS REPORT | Clinical Summary ---
:1940 Author Organization [facility] Address [address] [place] [address] Care Team Providers Name Role Phone Asked, No Pcp Primary Care Provider Unavailable Allergies No Known Allergies Medications Medication Sig Dispensed Refills Start Date End Date Status rivaroxaban Take 20 mg by 0 Active (XARELTO) 20 mg mouth. tablet therapeutic Take 1 tablet 0 Discontinued multivitamin by mouth 8 (THERAGRAN) tablet daily. pravastatin Take 80 mg by 0 Discontinued (PRAVACHOL) 10 MG mouth daily. 8 tablet folic acid (FOLVITE) Take 1 mg by 0 Discontinued 1 MG tablet mouth daily. 8 clopidogrel (PLAVIX) Take 75 mg by 0 Discontinued 75 mg tablet mouth daily. 8 cyanocobalamin 250 Take 250 mcg 0 Discontinued MCG tablet by mouth 8 daily. turmeric, bulk, 95 % 1 capsule 0 Discontinued powder daily. 8 docusate sodium Take 100 mg 0 Discontinued (COLACE) 100 MG by mouth 8 capsule daily. magnesium oxide Take 1 tablet 60 tablet [...] mouth every 12 (twelve) hours. 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 Hematuria 06/02/2017 Encounters Date Type Specialty Care Team Description 03/10/2018 Documentation Orthopedic Surgery Pramod Zamorano MD 03/08/2018 Office Visit Orthopedic Surgery Pramod Zamorano Primary localized osteoarthrosis of shoulder region, unspecified laterality (Primary Dx) ; MD Daniel Acute pain of both shoulders; History of total right hip replacement after 10/20/2017 Social History Tobacco Use Types Packs/Day Years Used Date Never Assessed Sex Assigned at Date Recorded Not on file Job Start Date Occupation Industry Not on file Not on file Not on file Travel History Travel Start Travel End No recent travel history available. Last Filed Vital Signs Vital Sign Reading Time Taken Blood Pressure - - Pulse - - Temperature - - Respiratory Rate - - Oxygen Saturation - - Inhaled Oxygen Concentration - - Weight 84.8 kg (187 lb) 03/08/2018 2:35 PM CDT Height 182.9 cm (6') 03/08/2018 2:35 PM CDT Body Mass Index 25.36 03/08/2018 2:35 PM CDT Plan of Treatment Health Maintenance Due Date Last Done Comments SHINGRIX VACCINE (1 of 2) 1992 ZOSTER VACCINE 2002 PNEUMOCOCCAL POLYSACCHARIDE VACCINE AGE 65 AND OVER 2007 PNEUMOCOCCAL-13 2007 INFLUENZA VACCINE 06/23/2018 Implants Implanted Type Area Regional Loss Prevention Manager Device Shelf Model / Identifier Expiration Serial / Date Lot Accolade Mri Pacemaker - [id number] - [id number] Cardiac N/A: [employer]ON 02/16 [id number] / Implanted: Qty: 1 on 06/03/2017 by Mendoza King Jr., MD Pacemaker N/A [employer]- CRM [id number] / Generators [id number] Ingevity Mri Pacing Lead Is-1 Bipolar 59cm - [id number] - [id number] Cardiac Pacing N/A: BOSTON 04/02/2019 [id number] / Implanted: Qty: 1 on 06/03/2017 by Mendoza King Jr., MD Leads or N/A [employer]- CRM [id number] / Electrodes or [id number] Accessories 52cm Ingevity Mri Active Fixation Pacing Lead - [id number] Cardiac Pacing N/A : B[employer]ON 05/09/2019 [id number] / Implanted: 06/03/2017 (Quantity not on file) Leads or N/A [employer]- CRM [id number] / Electrodes or [id number] Accessories Right Total Hip Prosthesis Procedures Procedure Name Priority Date/Time Associated Diagnosis Comments XR FEMUR 2 VW RIGHT Routine 03/08/2018 3:16 PM History of total Results for this CDT right hip procedure are in replacement the results section. XR SHOULDERS Routine 03/08/2018 2:33 PM Acute pain of both Results for this BILATERAL CDT shoulders procedure are in the results section. after 10/20/2017 Results XR Femur 2 Vw Right (03/08/2018 3:16 PM CDT) Narrative Performed At Well fixed and aligned THR RightRevision with allograft [facility] Performing Organization Address [facility] Phone Number [facility] [address] [place] [address] XR Shoulders Bilateral (03/08/2018 2:33 PM CDT) Narrative Performed At [facility] OA changes both shoulders [facility] Performing Organization Address [facility] Phone Number [facility] [address] [place] [address] after 10/20/2017 Insurance Payer Benefit Plan / Group Subscriber ID Type Phone Address MEDICARE MEDICARE PART A AND B xxxxxxxxxx Medicare [facility] xxxxxxxxxx Indemnity INDEMNITY [employer]PP xxxxxxxxx Commercial Advance Directives Patient has advance care planning documents, and code status on file. For more information, please contact:Samuel Collins[address] [place] [id number] Code Status Date Activated Date Inactivated Comments Full Code 06/02/2017 5:09 PM 06/08/2017 3:23 PM Code Status decision reached by: Patient
--- OUTSIDE RECORDS SUMMARY | 2018-10-21 06:25 | XMS REPORT ---
:1940 [facility] [address] [place] [address] Dr. Liu [address] [place] [id number] Care Team Providers Name Role Phone PAIGEZAKJACKY ROSARIO I. Unavailable Unavailable HAKAN GRANDA Unavailable Unavailable Problems This patient has no known problems. Allergies, Adverse Reactions, Alerts This patient has no known allergies or adverse reactions. Medications This patient has no known medications. Results Test Description Test Time Test Comments Text Results Atomic Results Result Comments JAJA SIEGEL IN 2018-07-28 INTRA OP FINAL REPORT PATIENT ID: OR/30 MINUTE 17:30:00 IMAGINGReason for [id number] TECHNIQUE: INCREMENTS exam:->retained Fluoroscopic images from endoscopy capsule endoscopic procedure were retrieval submitted for interpretation. INDICATION: 78-year-old man with retained endoscopy capsule. COMPARISON: None. IMPRESSION:Fluoroscopic images from endoscopic procedure, not obtained by the undersigned. Please refer to endoscopy note for more details of the procedure and findings. Fluoroscopy time: 0.2 minutesNumber of images: 2 Signed: Reina Gunn MDReport Verified Date/Time: 07/28/2018 17:30:09 Reading Location: [address] Radiology Reading Room ESIUM 2017-06-23 06:53:00 Test Item Value Reference Range Comments MAGNESIUM (BEAKER) (test poop=720) 1.7 mg/dL 1.6-2.6 CBC W/PLT COUNT & AUTO [id number] 05:48:00 Test Item Value Reference Range Comments WHITE BLOOD CELL COUNT (BEAKER) (test iwns=720) 13.4 K/ L 3.5-10.5 RED BLOOD CELL COUNT (BEAKER) (test zfwl=753) 4.60 M/ L 4.63-6.08 HEMOGLOBIN (BEAKER) (test cxlk=227) 13.5 GM/DL 13.7-17.5 HEMATOCRIT (BEAKER) (test zloi=956) 41.5 % 40.1-51.0 MEAN CORPUSCULAR VOLUME (BEAKER) (test whlk=874) 90.2 fL 79.0-92.2 MEAN CORPUSCULAR HEMOGLOBIN (BEAKER) (test 29.3 pg 25.7-32.2 mhpg=931) MEAN CORPUSCULAR HEMOGLOBIN CONC (BEAKER) (test 32.5 GM/DL 32.3-36.5 rqde=944) RED CELL DISTRIBUTION WIDTH (BEAKER) (test 14.6 % 11.6-14.4 xuay=814) PLATELET COUNT (BEAKER) (test pkpb=826) 185 K/CU MM 150-450 MEAN PLATELET VOLUME (BEAKER) (test sygf=888) 10.4 fL 9.4-12.4 NUCLEATED RED BLOOD CELLS (BEAKER) (test 0 /100 WBC 0-0 cutm=146) NEUTROPHILS RELATIVE PERCENT (BEAKER) (test 67 % klfd=308) LYMPHOCYTES RELATIVE PERCENT (BEAKER) (test 20 % wqke=278) MONOCYTES RELATIVE PERCENT (BEAKER) (test 11 % ndbr=082) EOSINOPHILS RELATIVE PERCENT (BEAKER) (test 2 % ldqn=922) BASOPHILS RELATIVE PERCENT (BEAKER) (test 1 % vfss=767) NEUTROPHILS ABSOLUTE COUNT (BEAKER) (test 8.95 K/ L 1.78-5.38 ygrw=110) LYMPHOCYTES ABSOLUTE COUNT (BEAKER) (test 2.63 K/ L 1.32-3.57 tssp=201) MONOCYTES ABSOLUTE COUNT (BEAKER) (test 1.50 K/ L 0.30-0.82 ispl=890) EOSINOPHILS ABSOLUTE COUNT (BEAKER) (test 0.20 K/ L 0.04-0.54 agkn=473) BASOPHILS ABSOLUTE COUNT (BEAKER) (test 0.08 K/ L 0.01-0.08 hyfw=530) IMMATURE GRANULOCYTES-RELATIVE PERCENT (BEAKER) 1 % 0-1 (test nrjx=7232) CALCIUM, [id number] 05:32:00 Test Item Value Reference Range Comments CALCIUM IONIZED (BEAKER) (test etnc=617) 1.00 mmol/L 1.12-1.27 PH, BLOOD (BEAKER) (test pqtq=3823) 7.38 B-TYPE NATRIURETIC FACTOR (BNP)2017-06-23 05:22:00 Test Item Value Reference Range Comments B-TYPE NATRIURETIC PEPTIDE (BEAKER) (test 2170 pg/mL 0-100 fkop=664) [id number] 05:19:00 Test Item Value Reference Range Comments PHOSPHORUS (BEAKER) (test eyua=789) 4.1 mg/dL 2.3-4.7 BASIC METABOLIC [id number] 05:19:00 Test Item Value Reference Range Comments SODIUM (BEAKER) (test 132 meq/L 136-145 mfpd=317) POTASSIUM (BEAKER) (test 4.3 meq/L 3.5-5.1 rewm=471) CHLORIDE (BEAKER) (test 102 meq/L 98-107 qaut=132) CO2 (BEAKER) (test 18 meq/L 22-29 cqjn=445) BLOOD UREA NITROGEN 38 mg/dL 7-21 (BEAKER) (test zeri=677) CREATININE (BEAKER) (test 1.39 mg/dL 0.57-1.25 zypn=000) GLUCOSE RANDOM (BEAKER) 101 mg/dL 70-105 (test rwmf=040) CALCIUM (BEAKER) (test 8.7 mg/dL 8.4-10.2 jhdr=902) EGFR (BEAKER) (test 50 mL/min/1.73 sq m ESTIMATED GFR IS NOT pitd=5049) ACCURATE CREATININE CLEARANCE IN PREDICTING GLOMERULAR FILTRATION RATE. ESTIMATED GFR IS NOT APPLICABLE FOR DIALYSIS PATIENTS. CALCIUM, [id number] 03:03:00 Test Item Value Reference Range Comments CALCIUM IONIZED (BEAKER) (test fjql=154) 1.04 mmol/L 1.12-1.27 PH, BLOOD (BEAKER) (test jges=3468) 7.40 [id number] 02:41:00 Test Item Value Reference Range Comments PHOSPHORUS (BEAKER) (test wckj=405) 3.9 mg/dL 2.3-4.7 [id number] 02:41:00 Test Item Value Reference Range Comments MAGNESIUM (BEAKER) (test urrw=170) 1.6 mg/dL 1.6-2.6 COMPREHENSIVE METABOLIC [id number] 02:41:00 Test Item Value Reference Range Comments TOTAL PROTEIN (BEAKER) 6.0 gm/dL 6.0-8.3 (test owma=219) ALBUMIN (BEAKER) (test 3.5 g/dL 3.5-5.0 iukr=7501) ALKALINE PHOSPHATASE 67 U/L 40-150 (BEAKER) (test fteg=395) BILIRUBIN TOTAL (BEAKER) 1.0 mg/dL 0.2-1.2 (test vlbk=222) SODIUM (BEAKER) (test 130 meq/L 136-145 hcmn=185) POTASSIUM (BEAKER) (test 4.4 meq/L 3.5-5.1 umee=681) CHLORIDE (BEAKER) (test 101 meq/L 98-107 qrlr=056) CO2 (BEAKER) (test 17 meq/L 22-29 izlt=950) BLOOD UREA NITROGEN 37 mg/dL 7-21 (BEAKER) (test xcql=683) CREATININE (BEAKER) (test 1.30 mg/dL 0.57-1.25 whld=856) GLUCOSE RANDOM (BEAKER) 102 mg/dL 70-105 (test edmh=226) CALCIUM (BEAKER) (test 8.5 mg/dL 8.4-10.2 ftiz=580) AST (SGOT) (BEAKER) (test 218 U/L 5-34 nwsn=134) ALT (SGPT) (BEAKER) (test 373 U/L 6-55 oqsb=222) EGFR (BEAKER) (test 54 mL/min/1.73 sq m ESTIMATED GFR IS NOT qaeg=4432) ACCURATE CREATININE CLEARANCE IN PREDICTING GLOMERULAR FILTRATION RATE. ESTIMATED GFR IS NOT APPLICABLE FOR DIALYSIS PATIENTS. CBC W/PLT COUNT & AUTO [id number] 02:36:00 Test Item Value Reference Range Comments WHITE BLOOD CELL COUNT (BEAKER) (test jyib=579) 12.7 K/ L 3.5-10.5 RED BLOOD CELL COUNT (BEAKER) (test bqbp=413) 4.28 M/ L 4.63-6.08 HEMOGLOBIN (BEAKER) (test cvtn=064) 12.8 GM/DL 13.7-17.5 HEMATOCRIT (BEAKER) (test slye=735) 38.2 % 40.1-51.0 MEAN CORPUSCULAR VOLUME (BEAKER) (test afqn=572) 89.3 fL 79.0-92.2 MEAN CORPUSCULAR HEMOGLOBIN (BEAKER) (test 29.9 pg 25.7-32.2 sysv=817) MEAN CORPUSCULAR HEMOGLOBIN CONC (BEAKER) (test 33.5 GM/DL 32.3-36.5 shot=603) RED CELL DISTRIBUTION WIDTH (BEAKER) (test 14.6 % 11.6-14.4 ooqi=321) PLATELET COUNT (BEAKER) (test dlii=262) 196 K/CU MM 150-450 MEAN PLATELET VOLUME (BEAKER) (test ujym=458) 10.6 fL 9.4-12.4 NUCLEATED RED BLOOD CELLS (BEAKER) (test 0 /100 WBC 0-0 lpho=815) NEUTROPHILS RELATIVE PERCENT (BEAKER) (test 67 % vxof=668) LYMPHOCYTES RELATIVE PERCENT (BEAKER) (test 19 % jrhi=680) MONOCYTES RELATIVE PERCENT (BEAKER) (test 11 % bzkn=504) EOSINOPHILS RELATIVE PERCENT (BEAKER) (test 1 % hqba=905) BASOPHILS RELATIVE PERCENT (BEAKER) (test 1 % esav=970) NEUTROPHILS ABSOLUTE COUNT (BEAKER) (test 8.55 K/ L 1.78-5.38 wkmt=486) LYMPHOCYTES ABSOLUTE COUNT (BEAKER) (test 2.41 K/ L 1.32-3.57 vpqd=216) MONOCYTES ABSOLUTE COUNT (BEAKER) (test 1.43 K/ L 0.30-0.82 fbzc=297) EOSINOPHILS ABSOLUTE COUNT (BEAKER) (test 0.18 K/ L 0.04-0.54 bfjp=023) BASOPHILS ABSOLUTE COUNT (BEAKER) (test 0.06 K/ L 0.01-0.08 lxpq=870) IMMATURE GRANULOCYTES-RELATIVE PERCENT (BEAKER) 0 % 0-1 (test zpbn=6460) POCT-GLUCOSE [id number] 02:31:00 Test Item Value Reference Range Comments POC-GLUCOSE METER (BEAKER) 108 mg/dL 70-110 TESTED AT [facility] [address] [facility] (test tahr=5066) [facility] [address] BASIC METABOLIC [id number] 17:40:00 Test Item Value Reference Range Comments SODIUM (BEAKER) (test 131 meq/L 136-145 hett=325) POTASSIUM (BEAKER) (test 5.6 meq/L 3.5-5.1 Specimen markedly jwun=425) hemolyzed CHLORIDE (BEAKER) (test 100 meq/L 98-107 nnoq=618) CO2 (BEAKER) (test 21 meq/L 22-29 zuko=524) BLOOD UREA NITROGEN 37 mg/dL 7-21 (BEAKER) (test wmas=089) CREATININE (BEAKER) (test 1.35 mg/dL 0.57-1.25 Specimen markedly shbf=767) hemolyzed GLUCOSE RANDOM (BEAKER) 123 mg/dL 70-105 (test mstr=836) CALCIUM (BEAKER) (test 8.7 mg/dL 8.4-10.2 bsoq=381) EGFR (BEAKER) (test 52 mL/min/1.73 sq m ESTIMATED GFR IS NOT knvk=2122) ACCURATE CREATININE CLEARANCE IN PREDICTING GLOMERULAR FILTRATION RATE. ESTIMATED GFR IS NOT APPLICABLE FOR DIALYSIS PATIENTS. HEPATITIS B SURFACE [id number] 14:35:00 Test Item Value Reference Range Comments HEPATITIS B SURFACE ANTIBODY (BEAKER) (test < mIU/mL <8.0 yhsh=160) HEPATITIS B SURFACE [id number] 14:17:00 Test Item Value Reference Range Comments HEPATITIS B SURFACE ANTIGEN (2) (BEAKER) (test Nonreactive Nonreactive oqhr=0891) HEPATITIS B CORE ANTIBODY, [id number] 14:17:00 Test Item Value Reference Range Comments HEPATITIS B CORE IGM ANTIBODY (BEAKER) (test Nonreactive Nonreactive moex=714) HEPATITIS C [id number] 14:17:00 Test Item Value Reference Range Comments HEPATITIS C ANTIBODY (BEAKER) (test zdkn=199) Nonreactive Nonreactive BLOOD GAS, [id number] 13:48:00 Test Item Value Reference Range Comments PH VENOUS (BEAKER) (test dbni=331) 7.40 7.32-7.42 PCO2 VENOUS (BEAKER) (test lpmm=731) 33 mmHg 41-51 PO2 VENOUS (BEAKER) (test cavx=774) 54 mmHg 25-40 O2 SATURATION VENOUS (BEAKER) (test vnsx=700) 90.4 % 40.0-70.0 HCO3 VENOUS (BEAKER) (test uqou=329) 20 mmol/L 21-29 BASE EXCESS VENOUS (BEAKER) (test bxkr=597) -4.6 mmol/L -2.0-3.0 PATIENT TEMPERATURE (BEAKER) (test pksl=7191) 35.6 C FIO2 (BEAKER) (test rpft=9719) 21.0 % CBC W/PLT COUNT & AUTO [id number] 08:07:00 Test Item Value Reference Range Comments WHITE BLOOD CELL COUNT 11.6 K/ L 3.5-10.5 (BEAKER) (test xsmz=255) RED BLOOD CELL COUNT (BEAKER) 4.49 M/ L 4.63-6.08 (test kzgh=195) HEMOGLOBIN (BEAKER) (test 13.3 GM/DL 13.7-17.5 xaqi=989) HEMATOCRIT (BEAKER) (test 42.1 % 40.1-51.0 jrzn=066) MEAN CORPUSCULAR VOLUME 93.8 fL 79.0-92.2 Discordant from previous (BEAKER) (test dgle=134) results MEAN CORPUSCULAR HEMOGLOBIN 29.6 pg 25.7-32.2 (BEAKER) (test ntke=486) MEAN CORPUSCULAR HEMOGLOBIN 31.6 GM/DL 32.3-36.5 CONC (BEAKER) (test prrr=726) RED CELL DISTRIBUTION WIDTH 14.6 % 11.6-14.4 (BEAKER) (test blws=405) PLATELET COUNT (BEAKER) (test 171 K/CU MM 150-450 ilul=309) MEAN PLATELET VOLUME (BEAKER) 10.9 fL 9.4-12.4 (test dbqu=553) NUCLEATED RED BLOOD CELLS 0 /100 WBC 0-0 (BEAKER) (test ffnx=198) NEUTROPHILS RELATIVE PERCENT 64 % (BEAKER) (test shgm=695) LYMPHOCYTES RELATIVE PERCENT 24 % (BEAKER) (test wzdq=123) MONOCYTES RELATIVE PERCENT 9 % (BEAKER) (test gzxo=586) EOSINOPHILS RELATIVE PERCENT 2 % (BEAKER) (test pmtn=280) BASOPHILS RELATIVE PERCENT 1 % (BEAKER) (test mvlc=395) NEUTROPHILS ABSOLUTE COUNT 7.41 K/ L 1.78-5.38 (BEAKER) (test dajv=416) LYMPHOCYTES ABSOLUTE COUNT 2.75 K/ L 1.32-3.57 (BEAKER) (test qztx=821) MONOCYTES ABSOLUTE COUNT 1.02 K/ L 0.30-0.82 (BEAKER) (test wgup=840) EOSINOPHILS ABSOLUTE COUNT 0.18 K/ L 0.04-0.54 (BEAKER) (test feeh=429) BASOPHILS ABSOLUTE COUNT 0.08 K/ L 0.01-0.08 (BEAKER) (test cqwi=389) IMMATURE GRANULOCYTES-RELATIVE 1 % 0-1 PERCENT (BEAKER) (test xhhz=3797) [id number] 07:28:00 Test Item Value Reference Range Comments MAGNESIUM (BEAKER) (test 1.9 mg/dL 1.6-2.6 Specimen slightly hemolyzed ecdk=148) [id number] 07:28:00 Test Item Value Reference Range Comments PHOSPHORUS (BEAKER) (test 4.1 mg/dL 2.3-4.7 Specimen slightly hemolyzed tuky=022) COMPREHENSIVE METABOLIC [id number] 07:28:00 Test Item Value Reference Range Comments TOTAL PROTEIN (BEAKER) 6.2 gm/dL 6.0-8.3 Specimen slightly (test ndtp=257) hemolyzed ALBUMIN (BEAKER) (test 3.5 g/dL 3.5-5.0 Specimen slightly cmye=0709) hemolyzed ALKALINE PHOSPHATASE 68 U/L 40-150 (BEAKER) (test yyfj=615) BILIRUBIN TOTAL (BEAKER) 1.1 mg/dL 0.2-1.2 Specimen slightly (test frai=822) hemolyzed SODIUM (BEAKER) (test 128 meq/L 136-145 xldg=617) POTASSIUM (BEAKER) (test 4.7 meq/L 3.5-5.1 Specimen slightly pqka=568) hemolyzed CHLORIDE (BEAKER) (test 103 meq/L 98-107 vlpn=820) CO2 (BEAKER) (test 12 meq/L 22-29 bdjw=647) BLOOD UREA NITROGEN 38 mg/dL 7-21 (BEAKER) (test nbco=888) CREATININE (BEAKER) (test 1.37 mg/dL 0.57-1.25 Specimen slightly ypdw=432) hemolyzed GLUCOSE RANDOM (BEAKER) 111 mg/dL 70-105 (test dnhi=582) CALCIUM (BEAKER) (test 8.5 mg/dL 8.4-10.2 pnvb=049) AST (SGOT) (BEAKER) (test 269 U/L 5-34 Specimen slightly ohnf=503) hemolyzed ALT (SGPT) (BEAKER) (test 401 U/L 6-55 Specimen slightly cufa=340) hemolyzed EGFR (BEAKER) (test 51 mL/min/1.73 sq m ESTIMATED GFR IS NOT byon=7878) ACCURATE CREATININE CLEARANCE IN PREDICTING GLOMERULAR FILTRATION RATE. ESTIMATED GFR IS NOT APPLICABLE FOR DIALYSIS PATIENTS. CALCIUM, [id number] 07:10:00 Test Item Value Reference Range Comments CALCIUM IONIZED (BEAKER) (test ebty=185) 0.94 mmol/L 1.12-1.27 PH, BLOOD (BEAKER) (test msjs=4385) 7.39 HEPATIC FUNCTION [id number] 15:02:00 Test Item Value Reference Range Comments TOTAL PROTEIN (BEAKER) (test vglz=849) 5.8 gm/dL 6.0-8.3 ALBUMIN (BEAKER) (test gnbn=1410) 3.4 g/dL 3.5-5.0 BILIRUBIN TOTAL (BEAKER) (test bkif=516) 0.7 mg/dL 0.2-1.2 BILIRUBIN DIRECT (BEAKER) (test zqvf=983) 0.4 mg/dL 0.1-0.5 ALKALINE PHOSPHATASE (BEAKER) (test wxuw=646) 71 U/L 40-150 AST (SGOT) (BEAKER) (test cdsy=123) 253 U/L 5-34 ALT (SGPT) (BEAKER) (test lqcr=684) 382 U/L 6-55 BASIC METABOLIC [id number] 15:02:00 Test Item Value Reference Range Comments SODIUM (BEAKER) (test 130 meq/L 136-145 clxp=648) POTASSIUM (BEAKER) (test 4.4 meq/L 3.5-5.1 ohge=735) CHLORIDE (BEAKER) (test 100 meq/L 98-107 zhod=258) CO2 (BEAKER) (test 19 meq/L 22-29 ydxc=137) BLOOD UREA NITROGEN 41 mg/dL 7-21 (BEAKER) (test jqjs=337) CREATININE (BEAKER) (test 1.36 mg/dL 0.57-1.25 fptt=594) GLUCOSE RANDOM (BEAKER) 148 mg/dL 70-105 (test pcts=450) CALCIUM (BEAKER) (test 8.3 mg/dL 8.4-10.2 oabt=660) EGFR (BEAKER) (test 51 mL/min/1.73 sq m ESTIMATED GFR IS NOT wujc=9129) ACCURATE CREATININE CLEARANCE IN PREDICTING GLOMERULAR FILTRATION RATE. ESTIMATED GFR IS NOT APPLICABLE FOR DIALYSIS PATIENTS. [id number] 14:54:00 Test Item Value Reference Range Comments AMMONIA (BEAKER) (test pzqb=777) 44 mol/L 18-72 [id number] 05:33:00 Test Item Value Reference Range Comments PHOSPHORUS (BEAKER) (test nqou=896) 3.7 mg/dL 2.3-4.7 [id number] 05:33:00 Test Item Value Reference Range Comments MAGNESIUM (BEAKER) (test bcso=324) 1.9 mg/dL 1.6-2.6 BASIC METABOLIC [id number] 05:33:00 Test Item Value Reference Range Comments SODIUM (BEAKER) (test 130 meq/L 136-145 gzbo=626) POTASSIUM (BEAKER) (test 4.3 meq/L 3.5-5.1 jpmv=113) CHLORIDE (BEAKER) (test 100 meq/L 98-107 gysm=798) CO2 (BEAKER) (test 20 meq/L 22-29 vcza=203) BLOOD UREA NITROGEN 39 mg/dL 7-21 (BEAKER) (test kfha=834) CREATININE (BEAKER) (test 1.54 mg/dL 0.57-1.25 wxos=591) GLUCOSE RANDOM (BEAKER) 109 mg/dL 70-105 (test rqgu=872) CALCIUM (BEAKER) (test 8.5 mg/dL 8.4-10.2 zztj=752) EGFR (BEAKER) (test 44 mL/min/1.73 sq m ESTIMATED GFR IS NOT bnmi=4984) ACCURATE CREATININE CLEARANCE IN PREDICTING GLOMERULAR FILTRATION RATE. ESTIMATED GFR IS NOT APPLICABLE FOR DIALYSIS PATIENTS. BASIC METABOLIC [id number] 19:59:00 Test Item Value Reference Range Comments SODIUM (BEAKER) (test 126 meq/L 136-145 rufq=672) POTASSIUM (BEAKER) (test 4.6 meq/L 3.5-5.1 uqnx=250) CHLORIDE (BEAKER) (test 97 meq/L 98-107 wqwx=191) CO2 (BEAKER) (test 19 meq/L 22-29 jjyy=178) BLOOD UREA NITROGEN 40 mg/dL 7-21 (BEAKER) (test ssrl=483) CREATININE (BEAKER) (test 1.49 mg/dL 0.57-1.25 rjhj=829) GLUCOSE RANDOM (BEAKER) 146 mg/dL 70-105 (test wjwy=694) CALCIUM (BEAKER) (test 8.9 mg/dL 8.4-10.2 evar=708) EGFR (BEAKER) (test 46 mL/min/1.73 sq m ESTIMATED GFR IS NOT eook=6197) ACCURATE CREATININE CLEARANCE IN PREDICTING GLOMERULAR FILTRATION RATE. ESTIMATED GFR IS NOT APPLICABLE FOR DIALYSIS PATIENTS. BASIC METABOLIC [id number] 13:46:00 Test Item Value Reference Range Comments SODIUM (BEAKER) (test 128 meq/L 136-145 cmqu=971) POTASSIUM (BEAKER) (test 4.6 meq/L 3.5-5.1 hrxw=468) CHLORIDE (BEAKER) (test 99 meq/L 98-107 rqge=848) CO2 (BEAKER) (test 17 meq/L 22-29 vhzb=478) BLOOD UREA NITROGEN 40 mg/dL 7-21 (BEAKER) (test ymwk=639) CREATININE (BEAKER) (test 1.44 mg/dL 0.57-1.25 oejk=556) GLUCOSE RANDOM (BEAKER) 113 mg/dL 70-105 (test wpxm=211) CALCIUM (BEAKER) (test 8.8 mg/dL 8.4-10.2 yxdq=809) EGFR (BEAKER) (test 48 mL/min/1.73 sq m ESTIMATED GFR IS NOT xlme=0156) ACCURATE CREATININE CLEARANCE IN PREDICTING GLOMERULAR FILTRATION RATE. ESTIMATED GFR IS NOT APPLICABLE FOR DIALYSIS PATIENTS. URIC [id number] 08:15:00 Test Item Value Reference Range Comments URIC ACID (BEAKER) (test lxbl=238) 8.9 mg/dL 2.6-7.2 [id number] 08:15:00 Test Item Value Reference Range Comments MAGNESIUM (BEAKER) (test xyon=506) 1.9 mg/dL 1.6-2.6 [id number] 08:15:00 Test Item Value Reference Range Comments PHOSPHORUS (BEAKER) (test qxqn=005) 3.8 mg/dL 2.3-4.7 BASIC METABOLIC [id number] 08:15:00 Test Item Value Reference Range Comments SODIUM (BEAKER) (test 127 meq/L 136-145 hzdh=222) POTASSIUM (BEAKER) (test 4.6 meq/L 3.5-5.1 qacf=644) CHLORIDE (BEAKER) (test 98 meq/L 98-107 kmou=428) CO2 (BEAKER) (test 20 meq/L 22-29 xput=641) BLOOD UREA NITROGEN 39 mg/dL 7-21 (BEAKER) (test mkys=319) CREATININE (BEAKER) (test 1.46 mg/dL 0.57-1.25 prqo=889) GLUCOSE RANDOM (BEAKER) 91 mg/dL 70-105 (test vsho=511) CALCIUM (BEAKER) (test 8.8 mg/dL 8.4-10.2 pxgr=713) EGFR (BEAKER) (test 47 mL/min/1.73 sq m ESTIMATED GFR IS NOT ghfp=4514) ACCURATE CREATININE CLEARANCE IN PREDICTING GLOMERULAR FILTRATION RATE. ESTIMATED GFR IS NOT APPLICABLE FOR DIALYSIS PATIENTS. CREATINE KINASE (CK)2017-06-19 08:15:00 Test Item Value Reference Range Comments CREATINE KINASE TOTAL (BEAKER) (test gvsv=754) 739 U/L 29-200 CALCIUM, [id number] 07:24:00 Test Item Value Reference Range Comments CALCIUM IONIZED (BEAKER) (test kbmr=394) 1.07 mmol/L 1.12-1.27 PH, BLOOD (BEAKER) (test nwiy=5696) 7.35 TSH/FREE T4 IF [id number] 05:53:00 Test Item Value Reference Range Comments THYROID STIMULATING HORMONE (BEAKER) (test 1.66 uIU/mL 0.35-4.94 usqg=573) CBC W/PLT COUNT & AUTO [id number] 05:35:00 Test Item Value Reference Range Comments WHITE BLOOD CELL COUNT (BEAKER) (test zyte=773) 11.7 K/ L 3.5-10.5 RED BLOOD CELL COUNT (BEAKER) (test shuq=419) 4.51 M/ L 4.63-6.08 HEMOGLOBIN (BEAKER) (test jmni=532) 13.4 GM/DL 13.7-17.5 HEMATOCRIT (BEAKER) (test eoja=893) 40.4 % 40.1-51.0 MEAN CORPUSCULAR VOLUME (BEAKER) (test ibca=743) 89.6 fL 79.0-92.2 MEAN CORPUSCULAR HEMOGLOBIN (BEAKER) (test 29.7 pg 25.7-32.2 bydd=302) MEAN CORPUSCULAR HEMOGLOBIN CONC (BEAKER) (test 33.2 GM/DL 32.3-36.5 dgah=623) RED CELL DISTRIBUTION WIDTH (BEAKER) (test 14.3 % 11.6-14.4 opyl=657) PLATELET COUNT (BEAKER) (test hwev=895) 165 K/CU MM 150-450 MEAN PLATELET VOLUME (BEAKER) (test eiox=378) 11.0 fL 9.4-12.4 NUCLEATED RED BLOOD CELLS (BEAKER) (test 0 /100 WBC 0-0 nulg=725) NEUTROPHILS RELATIVE PERCENT (BEAKER) (test 74 % hzoe=887) LYMPHOCYTES RELATIVE PERCENT (BEAKER) (test 14 % haqr=220) MONOCYTES RELATIVE PERCENT (BEAKER) (test 10 % kzun=258) EOSINOPHILS RELATIVE PERCENT (BEAKER) (test 1 % rkgl=171) BASOPHILS RELATIVE PERCENT (BEAKER) (test 0 % yxea=733) NEUTROPHILS ABSOLUTE COUNT (BEAKER) (test 8.69 K/ L 1.78-5.38 eufm=160) LYMPHOCYTES ABSOLUTE COUNT (BEAKER) (test 1.68 K/ L 1.32-3.57 yhoo=779) MONOCYTES ABSOLUTE COUNT (BEAKER) (test 1.12 K/ L 0.30-0.82 bfsa=032) EOSINOPHILS ABSOLUTE COUNT (BEAKER) (test 0.11 K/ L 0.04-0.54 yivk=340) BASOPHILS ABSOLUTE COUNT (BEAKER) (test 0.05 K/ L 0.01-0.08 flna=783) IMMATURE GRANULOCYTES-RELATIVE PERCENT (BEAKER) 1 % 0-1 (test wxjw=5860) B-TYPE NATRIURETIC FACTOR (BNP)2017-06-19 05:31:00 Test Item Value Reference Range Comments B-TYPE NATRIURETIC PEPTIDE (BEAKER) (test 740 pg/mL 0-100 eibx=378) BASIC METABOLIC [id number] 02:53:00 Test Item Value Reference Range Comments SODIUM (BEAKER) (test 128 meq/L 136-145 xuzr=630) POTASSIUM (BEAKER) (test 4.7 meq/L 3.5-5.1 eqzl=091) CHLORIDE (BEAKER) (test 101 meq/L 98-107 htbx=864) CO2 (BEAKER) (test 18 meq/L 22-29 fepx=893) BLOOD UREA NITROGEN 38 mg/dL 7-21 (BEAKER) (test sikm=285) CREATININE (BEAKER) (test 1.55 mg/dL 0.57-1.25 flcb=838) GLUCOSE RANDOM (BEAKER) 94 mg/dL 70-105 (test llbj=204) CALCIUM (BEAKER) (test 8.5 mg/dL 8.4-10.2 xkmp=887) EGFR (BEAKER) (test 44 mL/min/1.73 sq m ESTIMATED GFR IS NOT jupq=5289) ACCURATE CREATININE CLEARANCE IN PREDICTING GLOMERULAR FILTRATION RATE. ESTIMATED GFR IS NOT APPLICABLE FOR DIALYSIS PATIENTS. OSMOLALITY, [id number] 02:44:00 Test Item Value Reference Range Comments OSMOLALITY URINE (BEAKER) (test ndhy=113) 677 mOsm/kg 40-1400 [id number] 19:42:00 Test Item Value Reference Range Comments CORTISOL, TOTAL (BEAKER) (test mnsh=6539) 17.4 ug/dL 3.7-19.4 [id number] 19:13:00 Test Item Value Reference Range Comments SODIUM (BEAKER) (test mxds=437) 128 meq/L 136-145 POTASSIUM (BEAKER) (test keta=258) 4.9 meq/L 3.5-5.1 CHLORIDE (BEAKER) (test vobx=370) 100 meq/L 98-107 CO2 (BEAKER) (test koql=282) 18 meq/L 22-29 Call [id number] METABOLIC [id number] 19:13:00 Test Item Value Reference Range Comments SODIUM (BEAKER) (test 128 meq/L 136-145 pfxv=787) POTASSIUM (BEAKER) (test 4.9 meq/L 3.5-5.1 ixze=432) CHLORIDE (BEAKER) (test 100 meq/L 98-107 lvld=232) CO2 (BEAKER) (test 18 meq/L 22-29 nvvc=496) BLOOD UREA NITROGEN 38 mg/dL 7-21 (BEAKER) (test hpmf=630) CREATININE (BEAKER) (test 1.43 mg/dL 0.57-1.25 geun=045) GLUCOSE RANDOM (BEAKER) 98 mg/dL 70-105 (test oylb=061) CALCIUM (BEAKER) (test 8.3 mg/dL 8.4-10.2 ylkh=411) EGFR (BEAKER) (test 48 mL/min/1.73 sq m ESTIMATED GFR IS NOT xujm=8254) ACCURATE CREATININE CLEARANCE IN PREDICTING GLOMERULAR FILTRATION RATE. ESTIMATED GFR IS NOT APPLICABLE FOR DIALYSIS PATIENTS. Call [id number], RANDOM [id number] 12:24:00 Test Item Value Reference Range Comments PROTEIN, URINE (BEAKER) (test obco=9965) 231 mg/dL 0-14 URINALYSIS W/ [id number] 11:52:00 Test Item Value Reference Range Comments COLOR (BEAKER) (test zqtz=585) Yellow CLARITY (BEAKER) (test iyxf=464) Hazy SPECIFIC GRAVITY UA (BEAKER) (test ydhe=492) 1.018 1.001-1.035 PH UA (BEAKER) (test ddxs=043) 5.5 5.0-8.0 PROTEIN UA (BEAKER) (test gtzs=587) 200 mg/dL Negative GLUCOSE UA (BEAKER) (test hecb=191) Negative Negative KETONES UA (BEAKER) (test iliz=054) Negative Negative BILIRUBIN UA (BEAKER) (test pqgq=736) Negative Negative BLOOD UA (BEAKER) (test jprm=673) Large Negative NITRITE UA (BEAKER) (test sfll=612) Negative Negative LEUKOCYTE ESTERASE UA (BEAKER) (test upwo=156) Moderate Negative UROBILINOGEN UA (BEAKER) (test pocc=423) 0.2 mg/dL 0.2-1.0 RBC UA (BEAKER) (test itrg=789) 441 /HPF WBC UA (BEAKER) (test ihyn=675) 66 /HPF MUCUS (BEAKER) (test fabc=6087) Rare SQUAMOUS EPITHELIAL (BEAKER) (test vbdt=477) < /HPF HYALINE CASTS (BEAKER) (test uyth=756) 15 /LPF SOURCE(BEAKER) (test pfog=6233) Urine, Murphy CREATININE, RANDOM [id number] 11:32:00 Test Item Value Reference Range Comments CREATININE URINE (BEAKER) (test huoh=282) 139.8 mg/dL Reference Range: No NormalsSODIUM, RANDOM [id number] 11:32:00 Test Item Value Reference Range Comments SODIUM URINE (BEAKER) (test hrtz=364) 27 meq/L Reference Range: No NormalsBASIC METABOLIC [id number] 11:10:00 Test Item Value Reference Range Comments SODIUM (BEAKER) (test 126 meq/L 136-145 sspu=379) POTASSIUM (BEAKER) (test 5.0 meq/L 3.5-5.1 ohyn=639) CHLORIDE (BEAKER) (test 97 meq/L 98-107 ztuy=034) CO2 (BEAKER) (test 20 meq/L 22-29 illu=248) BLOOD UREA NITROGEN 39 mg/dL 7-21 (BEAKER) (test ibnk=182) CREATININE (BEAKER) (test 1.51 mg/dL 0.57-1.25 xbgp=104) GLUCOSE RANDOM (BEAKER) 130 mg/dL 70-105 (test rpyl=242) CALCIUM (BEAKER) (test 8.4 mg/dL 8.4-10.2 fcen=193) EGFR (BEAKER) (test 45 mL/min/1.73 sq m ESTIMATED GFR IS NOT ytct=0013) ACCURATE CREATININE CLEARANCE IN PREDICTING GLOMERULAR FILTRATION RATE. ESTIMATED GFR IS NOT APPLICABLE FOR DIALYSIS PATIENTS. TISSUE [id number] 10:04:00Surgical Pathology Report Case: [id number] Authorizing Provider: Jacky Linares MD Collected: 06/16/2017 1213 Ordering Location: [facility] PERI[facility] Received: 06/16/2017 1416 SERVICES Pathologist: Cristo Matta MD Specimen: Prostate , TURP, Prostate chips PROSTATE, TRANS-URETHRAL RESECTION: - NODULAR HYPERPLASIA [id number] with urinary obstruction, hematuria Prostate chipsThe specimen is received in aformalin- filled container labeled with the patient's information and labeled "prostate chips" and consists of 3 gm of multiple hahn-pink hahn-pink prostate chips measuring 3 x 2 x 1 cm in aggregate. The specimen is entirely submitted in A1- A3. CG/ew Performed.BASIC METABOLIC [id number] 07:32:00 Test Item Value Reference Range Comments SODIUM (BEAKER) (test 127 meq/L 136-145 afju=748) POTASSIUM (BEAKER) (test 5.0 meq/L 3.5-5.1 oiip=917) CHLORIDE (BEAKER) (test 99 meq/L 98-107 rhks=535) CO2 (BEAKER) (test 17 meq/L 22-29 pgny=602) BLOOD UREA NITROGEN 37 mg/dL 7-21 (BEAKER) (test aoah=452) CREATININE (BEAKER) (test 1.45 mg/dL 0.57-1.25 lahr=203) GLUCOSE RANDOM (BEAKER) 107 mg/dL 70-105 (test atwt=736) CALCIUM (BEAKER) (test 8.4 mg/dL 8.4-10.2 aghk=714) EGFR (BEAKER) (test 47 mL/min/1.73 sq m ESTIMATED GFR IS NOT hzjq=5019) ACCURATE CREATININE CLEARANCE IN PREDICTING GLOMERULAR FILTRATION RATE. ESTIMATED GFR IS NOT APPLICABLE FOR DIALYSIS PATIENTS. OSMOLALITY, [id number] 02:38:00 Test Item Value Reference Range Comments OSMOLALITY URINE (BEAKER) (test sxzm=034) 590 mOsm/kg 40-1400 URINALYSIS W/ REFLEX URINE [id number] 02:34:00 Test Item Value Reference Range Comments COLOR (BEAKER) (test jtnx=667) Yellow CLARITY (BEAKER) (test dxuq=834) Hazy SPECIFIC GRAVITY UA (BEAKER) (test qtmw=170) 1.017 1.001-1.035 PH UA (BEAKER) (test hawv=766) 6.0 5.0-8.0 PROTEIN UA (BEAKER) (test bxvz=879) 300 mg/dL Negative GLUCOSE UA (BEAKER) (test tuci=172) Negative Negative KETONES UA (BEAKER) (test vhhi=839) Negative Negative BILIRUBIN UA (BEAKER) (test tldi=709) Negative Negative BLOOD UA (BEAKER) (test kdve=141) Large Negative NITRITE UA (BEAKER) (test tegq=014) Negative Negative LEUKOCYTE ESTERASE UA (BEAKER) (test rbme=408) Moderate Negative UROBILINOGEN UA (BEAKER) (test abfv=072) 0.2 mg/dL 0.2-1.0 RBC UA (BEAKER) (test lcce=342) > /HPF WBC UA (BEAKER) (test xlui=461) 44 /HPF AMORPHOUS CRYSTALS (BEAKER) (test juje=8147) Occasional YEAST (BEAKER) (test utly=4683) Occasional SOURCE(BEAKER) (test pbmn=9309) CREATININE, RANDOM [id number] 02:19:00 Test Item Value Reference Range Comments CREATININE URINE (BEAKER) (test oksq=422) 163.8 mg/dL Reference Range: No NormalsSODIUM, RANDOM [id number] 02:19:00 Test Item Value Reference Range Comments SODIUM URINE (BEAKER) (test dqeg=571) 44 meq/L Reference Range: No NormalsTROPONIN [id number] 00:46:00 Test Item Value Reference Range Comments TROPONIN I (BEAKER) (test hcmo=034) 0.09 ng/mL 0.00-0.03 Effective 10/10/2014: Reference Range [...] renalfailure, acidosis, acute neurological disease, and persistent tachyarrhythmia.[id number] 00:38: 00 Test Item Value Reference Range Comments PHOSPHORUS (BEAKER) (test kezo=196) 4.8 mg/dL 2.3-4.7 [id number] 00:38:00 Test Item Value Reference Range Comments MAGNESIUM (BEAKER) (test bbuf=680) 1.9 mg/dL 1.6-2.6 BASIC METABOLIC [id number] 00:38:00 Test Item Value Reference Range Comments SODIUM (BEAKER) (test 125 meq/L 136-145 aqfv=651) POTASSIUM (BEAKER) (test 5.3 meq/L 3.5-5.1 wesz=932) CHLORIDE (BEAKER) (test 97 meq/L 98-107 nfgp=877) CO2 (BEAKER) (test 17 meq/L 22-29 vnwa=475) BLOOD UREA NITROGEN 34 mg/dL 7-21 (BEAKER) (test efyu=528) CREATININE (BEAKER) (test 1.66 mg/dL 0.57-1.25 lkaa=536) GLUCOSE RANDOM (BEAKER) 154 mg/dL 70-105 (test qzao=554) CALCIUM (BEAKER) (test 8.5 mg/dL 8.4-10.2 anvr=944) EGFR (BEAKER) (test 41 mL/min/1.73 sq m ESTIMATED GFR IS NOT khlp=2995) ACCURATE CREATININE CLEARANCE IN PREDICTING GLOMERULAR FILTRATION RATE. ESTIMATED GFR IS NOT APPLICABLE FOR DIALYSIS PATIENTS. HEMOGLOBIN AND [id number] 00:16:00 Test Item Value Reference Range Comments HEMOGLOBIN (BEAKER) (test kllb=628) 13.7 GM/DL 13.7-17.5 HEMATOCRIT (BEAKER) (test ivqa=542) 42.2 % 40.1-51.0 POCT-GLUCOSE [id number] 23:55:00 Test Item Value Reference Range Comments POC-GLUCOSE METER (BEAKER) 164 mg/dL 70-110 TESTED AT [address] (test ttvn=3263) [facility] [address] TROPONIN [id number] 18:42:00 Test Item Value Reference Range Comments TROPONIN I (BEAKER) (test djfe=142) 0.10 ng/mL 0.00-0.03 Effective 10/10/2014: Reference Range [...] NATRIURETIC PEPTIDE (BEAKER) (test 697 pg/mL 0-100 rmjj=316) [id number] 18:34:00 Test Item Value Reference Range Comments PHOSPHORUS (BEAKER) (test iofq=619) 4.6 mg/dL 2.3-4.7 [id number] 18:34:00 Test Item Value Reference Range Comments MAGNESIUM (BEAKER) (test iszg=264) 1.8 mg/dL 1.6-2.6 BASIC METABOLIC [id number] 18:34:00 Test Item Value Reference Range Comments SODIUM (BEAKER) (test 126 meq/L 136-145 trpw=193) POTASSIUM (BEAKER) (test 4.7 meq/L 3.5-5.1 udnh=568) CHLORIDE (BEAKER) (test 97 meq/L 98-107 scqj=100) CO2 (BEAKER) (test 18 meq/L 22-29 wsky=454) BLOOD UREA NITROGEN 32 mg/dL 7-21 (BEAKER) (test qmfw=190) CREATININE (BEAKER) (test 1.46 mg/dL 0.57-1.25 prnn=805) GLUCOSE RANDOM (BEAKER) 144 mg/dL 70-105 (test edur=410) CALCIUM (BEAKER) (test 8.4 mg/dL 8.4-10.2 pmmi=904) EGFR (BEAKER) (test 47 mL/min/1.73 sq m ESTIMATED GFR IS NOT icuj=9510) ACCURATE CREATININE CLEARANCE IN PREDICTING GLOMERULAR FILTRATION RATE. ESTIMATED GFR IS NOT APPLICABLE FOR DIALYSIS PATIENTS. CBC (HEMOGRAM ONLY)2017-06-17 18:06:00 Test Item Value Reference Range Comments WHITE BLOOD CELL COUNT (BEAKER) (test rjlg=430) 13.3 K/ L 3.5-10.5 RED BLOOD CELL COUNT (BEAKER) (test txcp=981) 4.28 M/ L 4.63-6.08 HEMOGLOBIN (BEAKER) (test msrz=579) 12.7 GM/DL 13.7-17.5 HEMATOCRIT (BEAKER) (test gozx=339) 39.7 % 40.1-51.0 MEAN CORPUSCULAR VOLUME (BEAKER) (test yvhi=084) 92.8 fL 79.0-92.2 MEAN CORPUSCULAR HEMOGLOBIN (BEAKER) (test 29.7 pg 25.7-32.2 tyjs=188) MEAN CORPUSCULAR HEMOGLOBIN CONC (BEAKER) (test 32.0 GM/DL 32.3-36.5 fftz=159) RED CELL DISTRIBUTION WIDTH (BEAKER) (test 14.3 % 11.6-14.4 gzsq=129) PLATELET COUNT (BEAKER) (test xwes=736) 185 K/CU MM 150-450 MEAN PLATELET VOLUME (BEAKER) (test iirg=181) 10.7 fL 9.4-12.4 NUCLEATED RED BLOOD CELLS (BEAKER) (test 0 /100 WBC 0-0 gjcw=839) BASIC METABOLIC [id number] 12:13:00 Test Item Value Reference Range Comments SODIUM (BEAKER) (test 132 meq/L 136-145 shsw=814) POTASSIUM (BEAKER) (test 4.6 meq/L 3.5-5.1 ukhe=183) CHLORIDE (BEAKER) (test 102 meq/L 98-107 idrw=051) CO2 (BEAKER) (test 22 meq/L 22-29 eoow=069) BLOOD UREA NITROGEN 30 mg/dL 7-21 (BEAKER) (test wuzd=540) CREATININE (BEAKER) (test 1.43 mg/dL 0.57-1.25 jtbv=038) GLUCOSE RANDOM (BEAKER) 103 mg/dL 70-105 (test ubmv=085) CALCIUM (BEAKER) (test 8.5 mg/dL 8.4-10.2 stpm=605) EGFR (BEAKER) (test 48 mL/min/1.73 sq m ESTIMATED GFR IS NOT mfzo=5989) ACCURATE CREATININE CLEARANCE IN PREDICTING GLOMERULAR FILTRATION RATE. ESTIMATED GFR IS NOT APPLICABLE FOR DIALYSIS PATIENTS. HEMOGLOBIN AND [id number] 11:54:00 Test Item Value Reference Range Comments HEMOGLOBIN (BEAKER) (test ulmd=522) 12.5 GM/DL 13.7-17.5 HEMATOCRIT (BEAKER) (test jpls=815) 39.0 % 40.1-51.0 [id number] 17:57:00 Test Item Value Reference Range Comments MAGNESIUM (BEAKER) (test 1.9 mg/dL 1.6-2.6 Specimen slightly hemolyzed qvrw=508) [id number] 17:57:00 Test Item Value Reference Range Comments PHOSPHORUS (BEAKER) (test 4.7 mg/dL 2.3-4.7 Specimen slightly hemolyzed juzy=031) BASIC METABOLIC [id number] 17:57:00 Test Item Value Reference Range Comments SODIUM (BEAKER) (test 137 meq/L 136-145 rrqr=049) POTASSIUM (BEAKER) (test 5.1 meq/L 3.5-5.1 Specimen slightly uecc=262) hemolyzed CHLORIDE (BEAKER) (test 109 meq/L 98-107 xfhh=975) CO2 (BEAKER) (test 19 meq/L 22-29 mqpj=671) BLOOD UREA NITROGEN 25 mg/dL 7-21 (BEAKER) (test glaw=161) CREATININE (BEAKER) (test 1.08 mg/dL 0.57-1.25 Specimen slightly pbca=378) hemolyzed GLUCOSE RANDOM (BEAKER) 130 mg/dL 70-105 (test xuuf=818) CALCIUM (BEAKER) (test 8.8 mg/dL 8.4-10.2 ilqw=684) EGFR (BEAKER) (test 67 mL/min/1.73 sq m ESTIMATED GFR IS NOT zcap=9185) ACCURATE CREATININE CLEARANCE IN PREDICTING GLOMERULAR FILTRATION RATE. ESTIMATED GFR IS NOT APPLICABLE FOR DIALYSIS PATIENTS. BASIC METABOLIC [id number] 15:00:00 Test Item Value Reference Range Comments SODIUM (BEAKER) (test 137 meq/L 136-145 ypfw=823) POTASSIUM (BEAKER) (test 4.9 meq/L 3.5-5.1 cdjn=663) CHLORIDE (BEAKER) (test 109 meq/L 98-107 unrr=790) CO2 (BEAKER) (test 21 meq/L 22-29 zwku=978) BLOOD UREA NITROGEN 24 mg/dL 7-21 (BEAKER) (test xqaz=038) CREATININE (BEAKER) (test 1.13 mg/dL 0.57-1.25 hhyl=001) GLUCOSE RANDOM (BEAKER) 141 mg/dL 70-105 (test gbks=920) CALCIUM (BEAKER) (test 9.0 mg/dL 8.4-10.2 heba=455) EGFR (BEAKER) (test 63 mL/min/1.73 sq m ESTIMATED GFR IS NOT yivy=5117) ACCURATE CREATININE CLEARANCE IN PREDICTING GLOMERULAR FILTRATION RATE. ESTIMATED GFR IS NOT APPLICABLE FOR DIALYSIS PATIENTS. HEMOGLOBIN AND [id number] 14:18:00 Test Item Value Reference Range Comments HEMOGLOBIN (BEAKER) (test aulf=171) 13.3 GM/DL 13.7-17.5 HEMATOCRIT (BEAKER) (test stez=017) 41.1 % 40.1-51.0 [id number] 12:37:00 Test Item Value Reference Range Comments SODIUM (BEAKER) (test bxov=376) 138 meq/L 136-145 POTASSIUM (BEAKER) (test ngwt=878) 4.3 meq/L 3.5-5.1 CHLORIDE (BEAKER) (test gayo=351) 104 meq/L 98-107 CO2 (BEAKER) (test qmba=831) 25 meq/L 22-29 [id number] 12:37:00 Test Item Value Reference Range Comments GLUCOSE RANDOM (BEAKER) (test hakn=388) 87 mg/dL 70-105 Effective 10/10/2014: Reference Range Change-Adult onlyNew: 70-105 Previous : 70-110BUN AND [id number] 12:37:00 Test Item Value Reference Range Comments BLOOD UREA NITROGEN 20 mg/dL 7-21 (BEAKER) (test alhw=771) CREATININE (BEAKER) (test 1.10 mg/dL 0.57-1.25 rbei=254) EGFR (BEAKER) (test 65 mL/min/1.73 sq m ESTIMATED GFR IS NOT ioza=6820) ACCURATE CREATININE CLEARANCE IN PREDICTING GLOMERULAR FILTRATION RATE. ESTIMATED GFR IS NOT APPLICABLE FOR DIALYSIS PATIENTS. CBC W/PLT COUNT & AUTO [id number] 12:24:00 Test Item Value Reference Range Comments WHITE BLOOD CELL COUNT (BEAKER) (test jbtx=532) 6.8 K/ L 4.0-10.0 RED BLOOD CELL COUNT (BEAKER) (test xsbs=100) 4.62 M/ L 4.20-5.80 HEMOGLOBIN (BEAKER) (test khfw=398) 14.7 GM/DL 13.0-16.8 HEMATOCRIT (BEAKER) (test qdul=611) 43.1 % 40.0-50.0 MEAN CORPUSCULAR VOLUME (BEAKER) (test khei=841) 93.2 fL 82.0-98.0 MEAN CORPUSCULAR HEMOGLOBIN (BEAKER) (test 31.8 pg 27.0-33.0 ezpi=648) MEAN CORPUSCULAR HEMOGLOBIN CONC (BEAKER) (test 34.1 GM/DL 32.0-36.0 qsxv=210) RED CELL DISTRIBUTION WIDTH (BEAKER) (test 13.1 % 10.3-14.2 wcxp=577) PLATELET COUNT (BEAKER) (test rbnk=974) 179 K/CU MM 150-430 MEAN PLATELET VOLUME (BEAKER) (test usxy=281) 7.2 fL 6.5-10.5 NUCLEATED RED BLOOD CELLS (BEAKER) (test 0 /100 WBC 0-0 jobp=962) NEUTROPHILS RELATIVE PERCENT (BEAKER) (test 67 % wckw=627) LYMPHOCYTES RELATIVE PERCENT (BEAKER) (test 23 % whdn=842) MONOCYTES RELATIVE PERCENT (BEAKER) (test 7 % ykln=070) EOSINOPHILS RELATIVE PERCENT (BEAKER) (test 2 % ztqb=956) BASOPHILS RELATIVE PERCENT (BEAKER) (test 1 % rixx=632) NEUTROPHILS ABSOLUTE COUNT (BEAKER) (test 4.56 K/ L 1.80-8.00 ukuh=051) LYMPHOCYTES ABSOLUTE COUNT (BEAKER) (test 1.59 K/ L 1.48-4.50 rtse=346) MONOCYTES ABSOLUTE COUNT (BEAKER) (test 0.47 K/ L 0.00-1.30 otfs=548) EOSINOPHILS ABSOLUTE COUNT (BEAKER) (test 0.17 K/ L 0.00-0.50 qsfa=858) BASOPHILS ABSOLUTE COUNT (BEAKER) (test 0.05 K/ L 0.00-0.20 zbek=832) 0.00
[2018-10-21] MEDS ORDERED: HEPA 1000U/500MLS 1,000 UNIT/500 ML BAG IV ONE (06:46)
[2018-10-21] MEDS ORDERED: LIDOCAINE 1% MPF 30 ML VIAL ONE (06:46)
[2018-10-21] MEDS ORDERED: NA CHLORIDE 0.9% 500 ML ONE (07:12)
--- NOTE | 2018-10-21 07:18 | EKG ---
Test Date: 2018-10-20 Test Time: 15:26:22 Mortgage Loan Processor: HARRISON MEASUREMENT RESULTS: Intervals: Rate: 71 FL: QRSD: 202 QT: 534 QTc: 580 [place]: P: -84 FL: QRS: -87 T: 84 INTERPRETIVE STATEMENTS: Electronic ventricular pacemaker Compared to ECG 07/28/2017 23:46:31 Rhythm is now with VVI pacing Electronically Signed On 10-21-18 07:18:05 AUTO BODY ESTIMATOR by Jese Crowder
[2018-10-21] MEDS ORDERED: HEPARIN 5000 UNIT/ML 1 ML VIAL ONE (07:37)
[2018-10-21] MEDS ORDERED: MIDAZOLAM HCL 2 MG/2 ML INJ ONE ×2 (07:37→07:48)
[2018-10-21] MEDS ORDERED: ATROPINE SULF 1 MG/10 ML SYR IV ONE (07:38)
[2018-10-21] MEDS ORDERED: FENTANYL CITR 100 MCG/2 ML ONE (07:38)
[2018-10-21] MEDS ORDERED: ACETYLCYST 20% 800 MG/4 ML VIAL PO ONE (09:15)
[2018-10-21 10:42] VITALS: BP 99/58; TEMP 98.6; O2SAT 100
--- NOTE | 2018-10-25 18:19 | OP ---
Surgeon: Colton Munguia MD Payloader Operator: Roberto Simental. Procedure Performed: Abdominal angiogram with run-off. Indication: Claudication and abnormal arterial Doppler in the and common femoral artery. Description Of Procedure: The patient was admitted as an outpatient, prepped and draped in the usual sterile fashion, given 2 mg of Versed for IV sedation. A 6-Scottish sheath was introduced in the left common femoral artery. A pigtail catheter was advanced above the renal artery to the aorta. 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 Impression And Plan: Severe peripheral arterial disease on the right side. The patient w as given form and CD of the procedure, showed today. He will be seeing Dr. Crane for surgery. There were no complications. Blood loss was 5 mL. Total conscious sedation was 30 minutes. BRIAN/JAS Voice ID: [id number] Report ID: [id number]
== END 2018-10-21 10:52 | disposition home or self-care (01) ==
LOC: CCL 06:22
DX: I70.211 Atherosclerosis of native arteries of extremities with intermittent claudication, right leg (principal); I70.92 Chronic total occlusion of artery of the extremities; I25.10 Atherosclerotic heart disease of native coronary artery without angina pectoris; I10 Essential (primary) hypertension
CPT/HCPCS: 36200; 36415; 75630; 80048; 85025; 85610; 85730; 93005; C1760; C1887; C1893; J2250 ×2; J3010; J1644